=== PATIENT | female | born 1960 | race Caucasian/White ===

== ENCOUNTER 2021-05-23 12:53 | Inpatient (IN) | payer BC, MEDICAID, SELFPAY ==
[2021-05-23] VITALS (14 sets, daily range): BP systolic 130–170; BP diastolic 46–98; PULSE 72–88; RESP 16–20; TEMP 36–36.6; O2SAT 94–100
--- NOTE | ~2021-05-23 | XR_ITS ---
EXAMINATION: XR chest 1V DATE: 05/23/2021 17:46 INDICATION: Transient alteration of awareness. TECHNIQUE: A single frontal view of the chest was obtained. COMPARISON: None. FINDINGS: There is mild elevation of right hemidiaphragm. No pneumonia, pleural effusion, or pneumoth orax. The heart size is normal. There is a left subclavian port with tip at superior cavoatrial junct ion. A left internal jugular central venous catheter is seen with tip at superior cavoatrial junction . There is plate and screw fixation of left humerus. IMPRESSION: 1. No acute cardiopulmonary disease. Reviewed, dictated and finalized at location A.
--- NOTE | ~2021-05-23 | CT_ITS ---
EXAMINATION: CT brain wo con DATE: 05/23/2021 17:36 INDICATION: Altered mental state TECHNIQUE: Computed tomography (CT) of the head was performed without intravenous contrast. The mA wa s adjusted according to patient size. Iterative reconstruction technique was employed. Exam dose: 60 5.33 mGy-cm total exam DLP. COMPARISON: None FINDINGS: Bilateral vertebral artery and carotid siphon internal carotid artery calcifications. There is nonspecific diminished attenuation of the cerebral white matter, likely due to chronic small vessel ischemic changes. There is central and cortical cerebral atrophy. No intracranial mass lesion or hemorrhage or cerebrovascular accident is detected. There is no midlin e shift or mass effect effect. No subdural or epidural hematoma. Abnormal shape and density of the right orbital globe; postoperative change of the right orbit. The paranasal sinuses and mastoid air cells are normally developed and aerated. No fracture or bone destruction of the cranial vault. IMPRESSION: Cerebral atherosclerosis and chronic small vessel ischemic changes of cerebral white mat ter Central and cortical cerebral atrophy No acute intracranial finding Abnormal right orbital globe Reviewed, dictated and finalized at Location [facility]. Reviewed, dictated and finalized at location A. IMPRESSION: Cerebral atherosclerosis and chronic small vessel ischemic changes of cerebral white matter Central and cortical cerebral atrophy No acute intracranial finding Abnormal right orbital globe
--- NOTE | 2021-05-23 12:55 | ECG_ITS ---
Measurements Intervals [place] Rate: 73 P: 74 NM: 169 QRS: -51 QRSD: 116 T: 76 QT: 414 QTc: 457 Interpretive Statements SINUS RHYTHM LEFT ANTERIOR FASCICULAR BLOCK [QRS AXIS <= -45, QR IN I, RS IN II] NONSPECIFIC T-WAVE ABNORMALITY BASELINE ARTIFACT ABNORMAL ECG NO PREVIOUS ECG AVAILABLE FOR COMPARISON Electronically Signed On 05-23-2021 15:48:46 CDT by Andre Hernandez M.D.
--- NOTE | 2021-05-23 13:20 | PC.NURSE ---
attempted to access port, unsuccessful. Pt states it hasn't been used in a long time .
--- NOTE | 2021-05-23 13:51 | PC.NURSE ---
Evette RIVERA at bedside attempting US IV.
[2021-05-23 14:13] LABS: Basophils Percent Auto 0.3 % (0.2-1.2); Eosinophils Absolute Auto 0.1 K/mm3 (0-0.3); Eosinophils Percent Auto 0.7 % (0-4.4); Hematocrit 30.3 % (37.0-47.0); Hemoglobin 9.5 g/dL (12.0-15.0); Immature Granulocyte Absolute 0.06 K/mm3 (0.00-0.031); Immature Granulocyte Percent A 0.6 % (0-0.5); Lymphocytes Absolute Auto 0.63 K/mm3 (0.9-3.2); Mean Corpuscular HGB Conc 31.4 g/dl (32-36); Mean Corpuscular Hemoglobin 30.6 pg (26-34); Mean Corpuscular Volume 97.7 fl (80-100); Mean Platelet Volume 9.6 fl (7.4-10.4); Monocytes Absolute Auto 0.6 K/mm3 (0.1-0.6); Monocytes Percent Auto 6.1 % (2.6-8.5); Neutrophils Percent Auto 86.3 % (45.5-73.1); Platelet Count Result 212 k/mm3 (150-375); Red Cell Distribution Width 13.7 % (11.5-14.5); White Blood Count 10.5 K/mm3 (4.5-10.0)
[2021-05-23 14:22] LABS: INR 1.3; Prothrombin Time 15.4 Seconds (11.1-14.7)
[2021-05-23 14:23] LABS: Partial Thromboplastin Time 44.5 SECONDS (22.3-36.8)
--- NOTE | 2021-05-23 14:23 | PC.NURSE ---
Labs drawn, IV was established by EMS. Yen Counts at bedside to establish second IV access.
[2021-05-23 14:25] LABS: Alanine Aminotransferase 10 U/L (4-35); Albumin Level 3.9 g/dL (3.5-5.1); Alkaline Phosphatase 142 U/L (38-126); Anion Gap 14 mmol/L (8-16); Aspartate Amino Transferase 18 U/L (14-36); Bilirubin,Total 0.6 mg/dL (0.2-1.3); Blood Urea Nitrogen 59 mg/dL (7-17); Calcium 8.5 mg/dL (8.4-10.2); Carbon Dioxide 22 mmol/L (22-30); Chloride 98 mmol/L (98-107); Estimated CRCL calculation 11 ml/min; Estimated Glomerular Filt Rate 6; Glucose 353 mg/dL (65-110); Potassium 5.6 mmol/L (3.4-5.0); Sodium 134 mmol/L (137-145)
[2021-05-23 14:39] LABS: Add Urine Microscopic? YES; Appearance Urine Clear (Clear); Bacteria Urine Trace /hpf; Bilirubin Urine Negative (Negative); Blood Urine 1+ (Negative); Color Urine Yellow (Yellow); Glucose Urine UA 3+ mg/dL (Negative); Ketones Urine Trace mg/dL (Negative); Leukocyte Esterase Ur Trace LEU/UL (Negative); Nitrate Urine Negative (Negative); Protein Urine 3+ mg/dL (Negative); Specific Grav Ur 1.013 (1.001-1.035); Squamous Epithelial Cell Urine Rare /hpf (Few); Urobilinogen Urine Negative mg/dL (<2.0); WBC Urine 31-50 /hpf
--- NOTE | 2021-05-23 14:48 | PC.NURSE ---
Pt states she is a m,w,f dialysis pt and missed yesterday d/t not feeling well. Pt noted to have wounds to right lower extremity and open sore to left labia. States these are chronic in nature and she sees Dr. Oliva at [facility]. second iv access was established by vascular salesperson [employer].
--- NOTE | 2021-05-23 16:40 | ED.GENADULT ---
HPI - General Adult General Chief complaint: Altered Mental Status Stated complaint: mult cc Time Seen by Provider: 05/23/21 12:59 Source: patient Mode of arrival: EMS Limitations: no limitations History of Present Illness HPI narrative: 60-year-old with a history of hypertension, diabetes on hemodialysis here with complaints of mild weakness since this morning. As per the caregiver patient did seem to be more confused since this morning. Patient denies any fever or chills. No history of nausea or vomiting. Onset (ago): day(s) (1) Associated symptoms: denies other symptoms Related Data Home Medications Medication Instructions Recorded Confirmed amiodarone 200 mg PO DAILY 05/23/21 05/23/21 apixaban [Eliquis] 2.5 mg PO BID 05/23/21 05/23/21 baclofen 10 mg PO DAILY 05/23/21 05/23/21 gabapentin 300 mg PO TID 05/23/21 05/23/21 insulin glargine [Lantus Solostar 30 unit SUBCUT TID 05/23/21 05/23/21 U-100 Insulin] oxycodone-acetaminophen 7.5 - 325 tablet PO TID PRN 05/23/21 05/23/21 Allergies Allergy/AdvReac Type Severity Reaction Status Date / Time vancomycin Allergy Hives Verified 05/23/21 14:54 Review of Systems Review of Systems: All systems reviewed & are unremarkable except as noted in HPI and below Constitutional: Constitutional: Reports no additional constitutional complaints Eyes: Eyes: Reports no additional eye complaints Exam Narrative: GENERAL: Well-appearing, well-nourished, confused . HEAD: Normocephalic, atraumatic. EYES: PERRLA and EOMI. NECK: Supple. CHEST: Clear to auscultation. No respiratory distress. has dialysis cath on the left side of the chest HEART: Regular rate and rhythm. No murmur heard. Normal peripheral pulses. ABDOMEN: Soft, nontender, nondistended, normal active bowel sounds. EXTREMITIES: Normal range of motion. has venous stasis , serous drainage from the leg , left BKA SKIN: Warm, dry, no rash. NEURO: No focal deficits. Alert . PSYCH: Normal mood and affect. Course Course Emergency Course: Patient is a poor historian however labs indicate hyperkalemia. She has missed her dialysis today. I have given her 1 g of calcium gluconate. Discussed with will dialyze the patient tomorrow. Vital Signs Vital signs: Vital Signs Temperature 36.6 C 05/23/21 12:56 Pulse Rate 75 05/23/21 12:56 Respiratory Rate 18 05/23/21 12:56 Blood Pressure 169/98 H 05/23/21 12:56 Pulse Oximetry 100 05/23/21 12:56 Temperature 36.6 C 05/23/21 12:56 Pulse Rate 73 05/23/21 16:59 Respiratory Rate 18 05/23/21 16:59 Blood Pressure 165/74 H 05/23/21 16:59 Pulse Oximetry 98 05/23/21 16:59 Medical Decision Making Differential Diagnosis Differential Diagnosis: Sepsis, pneumonia, UTI Vital Signs Vital Signs: Vital Signs Temperature 36.6 C 05/23/21 12:56 Pulse Rate 75 05/23/21 12:56 Respiratory Rate 18 05/23/21 12:56 Blood Pressure 169/98 H 05/23/21 12:56 Pulse Oximetry 100 05/23/21 12:56 Temperature 36.6 C 05/23/21 12:56 Pulse Rate 73 05/23/21 16:59 Respiratory Rate 18 05/23/21 16:59 Blood Pressure 165/74 H 05/23/21 16:59 Pulse Oximetry 98 05/23/21 16:59 Lab Data Result diagrams: 05/23/21 14:05 05/23/21 14:05 Labs: Lab Results 05/23/21 05/23/21 05/23/21 Range/Units 14:05 14:05 14:05 WBC 10.5 H (4.5-10.0) K/mm3 RBC 3.10 L (4.2-5.4) M/mm3 Hgb 9.5 L (12.0-15.0) g/dL Hct 30.3 L (37.0-47.0) % MCV 97.7 (80-100) fl MCH 30.6 (26-34) pg MCHC 31.4 L (32-36) g/dl RDW 13.7 (11.5-14.5) % Plt Count 212 (150-375) k/mm3 MPV 9.6 (7.4-10.4) fl Immature Gran % (Auto) 0.6 H (0-0.5) % Neut % (Auto) 86.3 H (45.5-73.1) % Lymph % (Auto) 6.0 L (18.3-44.2) % Payne % (Auto) 6.1 (2.6-8.5) % Eos % (Auto) 0.7 (0-4.4) % Baso % (Auto) 0.3 (0.2-1.2) % Lymph # (Auto) 0.63 L (0.9-3.2) K/mm3 Payne # (Auto) 0.6 (0.1-0.6)
[2021-05-23] MEDS: CALCIUM GLUC 1,000 MG/NS 50 ML 1,000 MG/50 ML BAG 100 MG IVPB (17:26)
--- NOTE | 2021-05-23 18:07 | PM.IMHP ---
H&P: HPI History of Present Illness Date/Time: Patient was placed observation status for expected length of stay less than 23 hours for management, will plan to re-evaluate tomorrow for improvement. 05/23/21 18:07 Chief Complaint: Altered mental status Narrative: Ms. Ladd is a 60-year-old female who was unable to give me any type of history at this time. Per emergency room records patient was brought in with altered mental status after her caregiver had seen her I notice that she was more confused. Per emergency room records patient has a known history of diabetes mellitus, end-stage renal disease on hemodialysis on Thursday, , and Thursday, and hypertension. When asked patient if she is having any pain she denies any pain. Patient states that she knows she is at the hospital but she does not know what hospital. Patient is unsure of the year, month, or date. Patient states she does live by herself. Patient is noted to have a left bonnu-egy-cptd amputation, but she is unable to move why this occurred. Upon evaluation in emergency room patient was noted to be extremely confused oriented to self only. Patient lives by herself was unable to return home. Patient did miss hemodialysis today and her potassium was 5.6. Patient does have a dressing to her right lower extremity, but she states she is not sure who takes care of that. Review of Systems Review of Systems: I am unable to obtain full review of systems secondary to patient's confusion. [facility] Past Medical History Medical History (Updated 05/23/21 @ 18:18 by Suzette Ponce APRN) Diabetes mellitus End-stage renal disease (ESRD) Hypertension Stasis edema Surgical History Surgical History (Updated 05/23/21 @ 18:15 by Suzette Ponce APRN) History of left below knee amputation Meds Home Medications and Allergies Home Medications Medication Instructions Recorded Confirmed Type amiodarone 200 mg PO DAILY 05/23/21 05/23/21 History apixaban [Eliquis] 2.5 mg PO BID 05/23/21 05/23/21 History baclofen 10 mg PO DAILY 05/23/21 05/23/21 History gabapentin 300 mg PO TID 05/23/21 05/23/21 History insulin glargine [Lantus Solostar 30 unit SUBCUT TID 05/23/21 05/23/21 History U-100 Insulin] oxycodone-acetaminophen 7.5 - 325 tablet PO TID PRN 05/23/21 05/23/21 History Allergies Allergy/AdvReac Type Severity Reaction Status Date / Time vancomycin Allergy Hives Verified 05/23/21 14:54 Vital Signs Vital Signs - 24 hr 05/23/21 12:56 05/23/21 13:30 05/23/21 13:51 Temperature 36.6 C Pulse Rate 75 88 Respiratory Rate 18 18 16 Blood Pressure 169/98 H 158/88 H Pulse Oximetry 100 97 05/23/21 14:50 05/23/21 15:23 05/23/21 15:47 Temperature Pulse Rate 78 74 72 Respiratory Rate 18 18 18 Blood Pressure 163/70 H 157/93 H 170/75 H Pulse Oximetry 95 94 98 05/23/21 16:59 Temperature Pulse Rate 73 Respiratory Rate 18 Blood Pressure 165/74 H Pulse Oximetry 98 Exam Narrative: Constitutional: Patient is well-nourished in no acute distress. Patient is alert and oriented to self only HEENT: Moist mucous membranes. No scleral icterus. No lymphadenopathy. Neck: No carotid bruits noted no JVD noted Lungs: Lung sounds are clear to auscultation bilaterally. No accessory muscle use. No rhonchi, rales, or wheezes noted. Cardiovascular: Apical pulse is regular rate and rhythm. S1-S2 noted, no S3 or S4 noted. No gallops, murmurs, or rubs noted. Chest: Dialysis catheter noted to left chest wall. Abdomen: Soft, round, and nontender. No palpable masses. Extremities: Patient does have a prostatic to her left BKA Skin: Patient has a dressing to her right lower extremity that is falling off and has large amount of serosanguineous drainage noted. Patient also has multiple painful sores to her vaginal and inner thigh area. Psychiatric: Cooperative, appropriate mood, and affect H&P: Results Labs Labs: Short CBC 05/23/21 Range
[2021-05-23] MEDS: SODIUM ZIRCONIUM CYCLOSILICATE 10 GM POWD.PACK PO (18:25)
--- NOTE | 2021-05-23 18:28 | PC.NURSE ---
Wound to RLE cleansed with wound cleanser. Foul odor and urine scent noted. Gauze, ABD pad, and maikol wrap applied. Son updated states he does not believe she is taking good care of herself at home but patient refuses a detention.
[2021-05-23 19:16] LABS: Glucose Point of Care 329 mg/dl (65-105)
[2021-05-23] MEDS: HEPARIN SODIUM 5,000 UNITS/ML VIAL 5000 UNITS SUB-Q (23:09)
[2021-05-23 23:19] LABS: Glucose Point of Care 312 mg/dl (65-105)
[2021-05-24] VITALS (28 sets, daily range): BP systolic 122–171; BP diastolic 48–98; PULSE 71–99; RESP 14–18; TEMP 35–36.7; O2SAT 97–100; BMI 36.8
[2021-05-24 05:19] LABS: Basophils Percent Auto 0.3 % (0.2-1.2); Eosinophils Absolute Auto 0.1 K/mm3 (0-0.3); Eosinophils Percent Auto 0.8 % (0-4.4); Hematocrit 28.2 % (37.0-47.0); Hemoglobin 9.2 g/dL (12.0-15.0); Immature Granulocyte Absolute 0.05 K/mm3 (0.00-0.031); Immature Granulocyte Percent A 0.6 % (0-0.5); Lymphocytes Absolute Auto 0.91 K/mm3 (0.9-3.2); Lymphocytes Percent Auto 10.4 % (18.3-44.2); Mean Corpuscular HGB Conc 32.6 g/dl (32-36); Mean Corpuscular Hemoglobin 31.4 pg (26-34); Mean Corpuscular Volume 96.2 fl (80-100); Mean Platelet Volume 9.7 fl (7.4-10.4); Monocytes Absolute Auto 0.7 K/mm3 (0.1-0.6); Monocytes Percent Auto 7.4 % (2.6-8.5); Neutrophils Percent Auto 80.5 % (45.5-73.1); Platelet Count Result 221 k/mm3 (150-375); Red Blood Count 2.93 M/mm3 (4.2-5.4); Red Cell Distribution Width 13.3 % (11.5-14.5); White Blood Count 8.8 K/mm3 (4.5-10.0)
[2021-05-24 05:30] LABS: Anion Gap 14 mmol/L (8-16); Blood Urea Nitrogen 64 mg/dL (7-17); Calcium 8.4 mg/dL (8.4-10.2); Carbon Dioxide 22 mmol/L (22-30); Chloride 100 mmol/L (98-107); Estimated CRCL calculation 9 ml/min; Estimated Glomerular Filt Rate 6; Glucose 324 mg/dL (65-110); Potassium 4.9 mmol/L (3.4-5.0); Sodium 136 mmol/L (137-145)
[2021-05-24 06:25] LABS: Hepatitis B Surface Antigen Negative (Negative)
[2021-05-24 07:13] LABS: Hepatitis B Surface Anti Res Positive
[2021-05-24 07:31] LABS: Glucose Point of Care 287 mg/dl (65-105)
[2021-05-24] MEDS: INSULIN ASPART (*BKC) 100 UNITS/ML SUB-Q ×3 (07:55→16:16)
[2021-05-24] MEDS: HEPARIN SODIUM 5,000 UNITS/ML VIAL 5000 UNITS SUB-Q (08:01)
[2021-05-24 08:57] LABS: Hemoglobin A1C 10.4 % (<5.7)
--- NOTE | 2021-05-24 10:29 | PCPTNOTE ---
Attempted physical therapy evaluation, patient just left for dialysis. Per RN patient will be gone for 5 hours. Will continue to follow.
--- NOTE | 2021-05-24 12:47 | PM.CNNEP ---
Assessment and Plan Assessment and plan (1) End-stage renal disease (ESRD): Code(s): N18.6 - End stage renal disease Status: Chronic Assessment and Plan: HD today to maintain outpatient schedule of Thu/Thu/Thursday follow electrolytes, volume status, and clearance (2) Hyperkalemia: Code(s): E87.5 - Hyperkalemia Status: Acute Assessment and Plan: presumably secondary to missed dialysis treatment on Thursday (05/22/21) corrected with medical management and dialysis follow trend (3) Altered mental status: Code(s): R41.82 - Altered mental status, unspecified Status: Acute Assessment and Plan: etiology not clear if related to dialysis, should improve given dialysis treatment today possible infection -- right leg wounds/drainage noted; follow culture data follow mentation (4) Hypertension: Code(s): I10 - Essential (primary) hypertension Status: Chronic Assessment and Plan: resume home medications follow trend of hemodynamics (5) Anemia: Code(s): D64.9 - Anemia, unspecified Status: Chronic Assessment and Plan: due to ESRD Epogen with HD follow trend of H/H (6) Diabetes mellitus: Code(s): E11.9 - Type 2 diabetes mellitus without complications Status: Acute Assessment and Plan: follow accuchecks glycemic control Will continue to follow. History of Present Illness Reason for Consult Consult date: 05/24/21 Reason for consult: end stage renal disease Chief Complaint Chief complaint: Hyperkalemia History of Present Illness Narrative: The patient is 60-year-old female with extensive past medical history as outlined below who presented to [facility] Emergency room yesterday afternoon after her caregiver noted her to be quite confused. Most of the history that I have obtained is from review of the electronic medical record as well as discussion with the ER physician yesterday afternoon and is difficult to get a full and complete history from the patient due to her confusion. Workup and evaluation emergency room demonstrated the patient to be quite confused and is only oriented to herself. Apparently, she did reportedly missed her dialysis treatment on Thursday (05/22/2021) but did receive dialysis on Thursday. Aside from this change in her usual routine, no other reported history was available. Routine blood test demonstrated labs consistent with her known history of end-stage renal disease but she was hyperkalemia with a potassium of 5.8. She was given medical management for this issue and subsequent admitted to the hospital for further evaluation and therapy Since her admission, her mentation does not appear to be doing much better but her potassium was by a.m. labs. She otherwise does not appear to be in acute distress but rather her confusion seems to be the most prominent issue/problem at this time Renal consultation was requested due to her end-stage renal disease. The patient is somewhat familiar to me as I take care of her outpatient dialysis needs. She normally dialyzes on a Thursday, Thursday, Thursday dialysis schedule under my care at [facility] in [place]. As already mentioned, she received dialysis on Thursday or earlier this week but did not come treatment on Thursday although I am unclear as to why she did not show up. She does have issues and problems with transportation sometimes and perhaps this is the reason why she did not go to dialysis on Thursday. Any case, at her baseline, the patient is usually alert and oriented x4 as actually quite talkative at least when I see her at her outpatient dialysis unit. Her only issue with dialysis is the fact that she is unable to get reliable access in terms of a fistula or graft as she has quite severe vascular disease and there apparently is no other place/location to place such an access given her disease burden.
--- NOTE | 2021-05-24 14:19 | PCOTNOTE ---
Attempted to see pt. for occupational therapy evaluation. Pt. in room and just returned from dialysis. Pt. agreeable to evaluation, but too fatigued and unable to stay awake.
--- NOTE | 2021-05-24 15:29 | P.PNIM_ITS ---
Progress Note: A&P Assessment and Plan (1) End-stage renal disease (ESRD): Code(s): N18.6 - End stage renal disease Status: Chronic Assessment and Plan: She is maintained on hemodialysis Thursday, Thursday, Thursday * Appreciate nephrology consultation from dialysis management * Patient missed dialysis on Monday 05/22 * Monitor volume status and electrolytes * Received dialysis today (2) Acute hyperkalemia: Code(s): E87.5 - Hyperkalemia Status: Acute Assessment and Plan: Potassium was 5.6 on presentation * Secondary to missed dialysis * Received 10 g Lokelma per Nephrology recommendations * Repeat potassium today is stable at 4.9 * Continue to monitor labs closely (3) Weakness: Code(s): R53.1 - Weakness Status: Acute Assessment and Plan: Unclear duration as patient unable to provide clear history * Appreciate PT/OT evaluation * Care coordination following, planning for SNF placement per family request. Patient previously living alone and having difficulty with mobility. Appreciate critical care nurse evaluation (4) Altered mental status: Code(s): R41.82 - Altered mental status, unspecified Status: Acute Assessment and Plan: Patient presented with increased confusion, unable to provide any history * Possibly secondary to missed dialysis although I am unsure of the patients baseline * She was A&Ox0 today and did not provide verbal responses (5) Diabetes mellitus: Code(s): E11.9 - Type 2 diabetes mellitus without complications Status: Acute Assessment and Plan: Poorly controlled. A1c is 10.4 * Continue with Accu-Cheks, sliding scale insulin, hypoglycemic protocol * 30 units Lantus q.h.s. * 5 units NovoLog scheduled with meals (6) Stasis edema: Qualifiers: Laterality: right Qualified Code(s): I87.301 - Chronic venous hypertension (idiopathic) without complications of right lower extremity Code(s): I87.309 - Chronic venous hypertension (idiopathic) without complications of unspecified lower extremity Status: Acute Assessment and Plan: Patient with history of chronic venous stasis * Appears she is established with vascular surgeon, Dr. Oliva * She has venous stasis ulcer that has been evaluated by wound care. No signs or symptoms of infection. Orders for cover dressing to control weeping placed (7) Hypertension: Code(s): I10 - Essential (primary) hypertension Status: Chronic Assessment and Plan: Blood pressures reviewed and are generally stable but slightly elevated in the 150-160s systolic. * She does not appear to be in any antihypertensive medications * Monitor blood pressure trends (8) Atrial fibrillation: Code(s): I48.91 - Unspecified atrial fibrillation Status: Acute Assessment and Plan: Patient was suspected history atrial fibrillation this is documented in the EMR * Continue amiodarone and Eliquis * Rate is controlled (9) Snoring: Code(s): R06.83 - Snoring Status: Acute Assessment and Plan: Patient's son that she snores frequently and wakes up more confused * Will proceed with apnea link tonight Subjective Date/time seen: 05/24/21 15:29 Interval history: Date of service: 05/24/2021 Cristiana Vasquez is a 60-year-old female with a history of ESRD on hemodialysis Thursday, Thursday, Thursday, type 2 diabetes mellitus, hypertension, atrial fibrillation on chronic
--- NOTE | 2021-05-24 15:29 | PM.IMPN ---
Progress Note: A&P Assessment and Plan (1) End-stage renal disease (ESRD): Code(s): N18.6 - End stage renal disease Status: Chronic Assessment and Plan: She is maintained on hemodialysis Thursday, Thursday, Thursday Appreciate nephrology consultation from dialysis management Patient missed dialysis on Monday 05/22 Monitor volume status and electrolytes Received dialysis today (2) Acute hyperkalemia: Code(s): E87.5 - Hyperkalemia Status: Acute Assessment and Plan: Potassium was 5.6 on presentation Secondary to missed dialysis Received 10 g Lokelma per Nephrology recommendations Repeat potassium today is stable at 4.9 Continue to monitor labs closely (3) Weakness: Code(s): R53.1 - Weakness Status: Acute Assessment and Plan: Unclear duration as patient unable to provide clear history Appreciate PT/OT evaluation Care coordination following, planning for SNF placement per family request. Patient previously living alone and having difficulty with mobility. Appreciate healthcare administrative assistant evaluation (4) Altered mental status: Code(s): R41.82 - Altered mental status, unspecified Status: Acute Assessment and Plan: Patient presented with increased confusion, unable to provide any history Possibly secondary to missed dialysis although I am unsure of the patients baseline She was A&Ox0 today and did not provide verbal responses (5) Diabetes mellitus: Code(s): E11.9 - Type 2 diabetes mellitus without complications Status: Acute Assessment and Plan: Poorly controlled. A1c is 10.4 Continue with Accu-Cheks, sliding scale insulin, hypoglycemic protocol 30 units Lantus q.h.s. 5 units NovoLog scheduled with meals (6) Stasis edema: Qualifiers: Laterality: right Qualified Code(s): I87.301 - Chronic venous hypertension (idiopathic) without complications of right lower extremity Code(s): I87.309 - Chronic venous hypertension (idiopathic) without complications of unspecified lower extremity Status: Acute Assessment and Plan: Patient with history of chronic venous stasis Appears she is established with vascular surgeon, Dr. Oliva She has venous stasis ulcer that has been evaluated by wound care. No signs or symptoms of infection. Orders for cover dressing to control weeping placed (7) Hypertension: Code(s): I10 - Essential (primary) hypertension Status: Chronic Assessment and Plan: Blood pressures reviewed and are generally stable but slightly elevated in the 150-160s systolic. She does not appear to be in any antihypertensive medications Monitor blood pressure trends (8) Atrial fibrillation: Code(s): I48.91 - Unspecified atrial fibrillation Status: Acute Assessment and Plan: Patient was suspected history atrial fibrillation this is documented in the EMR Continue amiodarone and Eliquis Rate is controlled (9) Snoring: Code(s): R06.83 - Snoring Status: Acute Assessment and Plan: Patient's son that she snores frequently and wakes up more confused Will proceed with apnea link tonight Subjective Date/time seen: 05/24/21 15:29 Interval history: Date of service: 05/24/2021 Cristiana Vasquez is a 60-year-old female with a history of ESRD on hemodialysis Thursday, Thursday, Thursday, type 2 diabetes mellitus, hypertension, atrial fibrillation on chronic anticoagulation, and chronic venous stasis who is seen in follow-up for altered mental status. The patient a poor historian is unable to provide any history. She does not provide any verbal responses during my encounter. Review of Systems Review of Systems: All systems reviewed & are unremarkable except as noted in HPI and below Exam Narrative: General: Chronically ill-appearing 60 year-old female, sitting up in bed, appears comfortable, NARD Neuro: Asleep bu
[2021-05-24] MEDS: TOLNAFTATE 1% POWDER 45 GM BTL 1 APPLIC TOPICAL ×2 (16:15→21:21)
[2021-05-24 16:17] LABS: Glucose Point of Care 268 mg/dl (65-105)
[2021-05-24] MEDS: GABAPENTIN 300 MG CAPSULE PO (16:17)
[2021-05-24] MEDS: APIXABAN 2.5 MG TABLET PO (16:17)
[2021-05-24] MEDS: INSULIN GLARGINE (*BKC) 100 UNITS/ML 10 UNITS SUB-Q (21:20)
[2021-05-24 22:05] LABS: Glucose Point of Care 247 mg/dl (65-105)
[2021-05-25] VITALS (12 sets, daily range): BP systolic 122–136; BP diastolic 59–68; PULSE 71–87; RESP 16–18; TEMP 36.1–36.6; O2SAT 96–100
[2021-05-25 06:52] LABS: Hematocrit 27.2 % (37.0-47.0); Hemoglobin 8.7 g/dL (12.0-15.0); Mean Corpuscular Hemoglobin 31.3 pg (26-34); Mean Corpuscular Volume 97.8 fl (80-100); Mean Platelet Volume 9.4 fl (7.4-10.4); Platelet Count Result 205 k/mm3 (150-375); Red Blood Count 2.78 M/mm3 (4.2-5.4); Red Cell Distribution Width 13.2 % (11.5-14.5); White Blood Count 9.7 K/mm3 (4.5-10.0)
[2021-05-25 07:13] LABS: Anion Gap 12 mmol/L (8-16); Blood Urea Nitrogen 35 mg/dL (7-17); Calcium 8.1 mg/dL (8.4-10.2); Carbon Dioxide 23 mmol/L (22-30); Chloride 100 mmol/L (98-107); Estimated CRCL calculation 15 ml/min; Estimated Glomerular Filt Rate 11; Glucose 241 mg/dL (65-110); Potassium 3.5 mmol/L (3.4-5.0); Sodium 135 mmol/L (137-145)
[2021-05-25 07:35] LABS: Glucose Point of Care 216 mg/dl (65-105)
[2021-05-25] MEDS: INSULIN ASPART (*BKC) 100 UNITS/ML SUB-Q ×6 (08:34→16:47)
[2021-05-25] MEDS: GABAPENTIN 300 MG CAPSULE PO ×3 (08:36→16:46)
[2021-05-25] MEDS: APIXABAN 2.5 MG TABLET PO ×2 (08:36→16:46)
[2021-05-25] MEDS: AMIODARONE HCL 200 MG TABLET PO (08:37)
[2021-05-25] MEDS: TOLNAFTATE 1% POWDER 45 GM BTL 1 APPLIC TOPICAL ×2 (08:41→20:32)
--- NOTE | 2021-05-25 09:33 | PCPTNOTE ---
Patient refused treatment this session due to working with OT this morning. Declined attempting transfers, a stand from the bed, and all other mobility. Will attempt eval at a later time.
--- NOTE | 2021-05-25 09:46 | PM.IMPN ---
Progress Note: A&P Assessment and Plan (1) End-stage renal disease (ESRD): Code(s): N18.6 - End stage renal disease Status: Chronic Assessment and Plan: She is maintained on hemodialysis Thursday, Thursday, Thursday Appreciate nephrology consultation from dialysis management Patient missed dialysis on Monday 05/22 Monitor volume status and electrolytes Received dialysis today 05/25/2021 interval history: Patient is a 60-year-old female today patient is more alert and oriented, with past medical history end-stage renal disease on hemodialysis patient states patient states to 3 days prior to coming to emergency depart see had developed hip pain ventral local Urgent Care and patient was given muscle relaxant see took the medication and went to sleep, the medication made her quite lethargic and slept for 2 days and missed her dialysis presented emergency depart was found to have elevated potassium, patient was seen by Nephrology and had a dialysis, her potassium is trending down, patient remains clinically stable is feeling much better compared to when she arrived, will continue to monitor have PT OT evaluate the patient patient will have her scheduled dialysis and further recommendation to follow. (2) Acute hyperkalemia: Code(s): E87.5 - Hyperkalemia Status: Acute Assessment and Plan: Potassium was 5.6 on presentation Secondary to missed dialysis Received 10 g Lokelma per Nephrology recommendations Repeat potassium today is stable at 4.9 Continue to monitor labs closely (3) Weakness: Code(s): R53.1 - Weakness Status: Acute Assessment and Plan: Unclear duration as patient unable to provide clear history Appreciate PT/OT evaluation Care coordination following, planning for SNF placement per family request. Patient previously living alone and having difficulty with mobility. Appreciate care team assistant evaluation (4) Altered mental status: Code(s): R41.82 - Altered mental status, unspecified Status: Acute Assessment and Plan: Patient presented with increased confusion, unable to provide any history Possibly secondary to missed dialysis although I am unsure of the patients baseline She was A&Ox0 today and did not provide verbal responses (5) Diabetes mellitus: Code(s): E11.9 - Type 2 diabetes mellitus without complications Status: Acute Assessment and Plan: Poorly controlled. A1c is 10.4 Continue with Accu-Cheks, sliding scale insulin, hypoglycemic protocol 30 units Lantus q.h.s. 5 units NovoLog scheduled with meals (6) Stasis edema: Qualifiers: Laterality: right Qualified Code(s): I87.301 - Chronic venous hypertension (idiopathic) without complications of right lower extremity Code(s): I87.309 - Chronic venous hypertension (idiopathic) without complications of unspecified lower extremity Status: Acute Assessment and Plan: Patient with history of chronic venous stasis Appears she is established with vascular surgeon, Dr. Oliva She has venous stasis ulcer that has been evaluated by wound care. No signs or symptoms of infection. Orders for cover dressing to control weeping placed (7) Hypertension: Code(s): I10 - Essential (primary) hypertension Status: Chronic Assessment and Plan: Blood pressures reviewed and are generally stable but slightly elevated in the 150-160s systolic. She does not appear to be in any antihypertensive medications Monitor blood pressure trends (8) Atrial fibrillation: Code(s): I48.91 - Unspecified atrial fibrillation Status: Acute Assessment and Plan: Patient was suspected history atrial fibrillation this is documented in the EMR Continue amiodarone and Eliquis Rate is controlled (9) Snoring: Code(s): R06.83 - Snoring Status: Acute Assessment and Plan: Patient's son that she snor
[2021-05-25] MEDS: EUCERIN CREAM 120 GM JAR 1 APPLIC TOPICAL ×2 (10:17→20:32)
[2021-05-25 11:26] LABS: Glucose Point of Care 221 mg/dl (65-105)
--- NOTE | 2021-05-25 12:21 | PM.PNNEP ---
Progress Note: A&P Assessment and Plan (1) End-stage renal disease (ESRD): Code(s): N18.6 - End stage renal disease Status: Chronic Assessment and Plan: HD yesterday to maintain outpatient schedule of Thu/Thu/Thursday follow electrolytes, volume status, and clearance (2) Hyperkalemia: Code(s): E87.5 - Hyperkalemia Status: Acute Assessment and Plan: presumably secondary to missed dialysis treatment on Thursday (05/22/21) corrected with medical management and dialysis follow trend (3) Altered mental status: Code(s): R41.82 - Altered mental status, unspecified Status: Acute Assessment and Plan: etiology not clear but susect due to medication (muscle relaxers) possible infection -- right leg wounds/drainage noted; follow culture data follow mentation (4) Hypertension: Code(s): I10 - Essential (primary) hypertension Status: Chronic Assessment and Plan: resume home medications follow trend of hemodynamics (5) Anemia: Code(s): D64.9 - Anemia, unspecified Status: Chronic Assessment and Plan: due to ESRD Epogen with HD follow trend of H/H (6) Diabetes mellitus: Code(s): E11.9 - Type 2 diabetes mellitus without complications Status: Acute Assessment and Plan: follow accuchecks on Lantus and SSI Will continue to follow. Subjective Date/time seen: 05/25/21 12:21 Mentation appears to be doing much better -- she was able to related that prior to her presentation to the [facility], she went to urgent care for evaluation of hip pain -- she was prescribed some muscle relaxer and upon taking these medications, she felt quite fatigued as well as lethargic; no issues/events overnight; tolerated dialysis yesterday without any problems. Exam Narrative: General: WD/WN female in NAD Heart: normal S1 and S2; no rub Lungs: clear to auscultation Abdomen: soft, nontender, nondistended, positive bowel sounds Extremities: no cyanosis or clubbing; no edema Skin: warm and dry Objective Data Vital Signs Vital Signs: Vital Signs Temp Pulse Resp BP Pulse Ox 05/25/21 12:01 81 05/25/21 11:02 96 05/25/21 08:41 18 96 05/25/21 08:37 80 05/25/21 08:03 83 05/25/21 05:06 36.1 C L 81 18 136/68 100 05/25/21 04:00 85 05/25/21 00:00 87 05/24/21 20:00 92 05/24/21 19:57 36.0 C L 95 18 144/70 H 100 Intake/Output Intake/Output: Intake & Output 05/22/21 05/23/21 05/24/21 05/25/21 23:59 23:59 23:59 23:59 Intake Total 50 60 150 Output Total 2000 Balance 50 -1940 150 Meds/Results Medications: Active Medications Generic Name Dose Route Start Last Admin Trade Name Freq PRN Reason Stop Dose Admin Acetaminophen 650 mg 05/23/21 18:15 Acetaminophen 325 Mg Tablet PO Q4H PRN Mild Pain (1-3) or Fever Amiodarone HCl 200 mg 05/24/21 09:00 05/25/21 08:37 Amiodarone Hcl 200 Mg Tablet PO 200 mg DAILY DEBRA Administration Apixaban 2.5 mg 05/24/21 09:00 05/25/21 08:36 Apixaban 2.5 Mg Tablet PO 2.5 mg BID DEBRA Administration Dextrose 12.5 gm 05/23/21 18:19 Dextrose 50% 25 Gm/50 Ml Syringe IV PUSH PRN PRN Hypoglycemia Protocol Gabapentin 300 mg 05/24/21 09:00 05/25/21 12:33 Gabapentin 300 Mg Capsule PO 300 mg TID DEBRA Administration Glucagon 1 mg 05/23/21 18:19 Glucagon For Inj 1 Mg Vial IM PRN PRN Hypoglycemia Protocol Glucose 15 gm 05/23/21 18:19 Glucose Oral Gel 15 Gm Of Glucse In 37.5 Gm Tube PO PRN PRN Hypoglycemia Protocol Dextrose 1,000 mls @ 100 mls/hr 05/23/21 18:19 Dextrose 5% 1,000 Ml IVPB PRN PRN Hypoglycemia Protocol Albumin Human 50 mls @ 999 mls/hr 05/24/21 03:27 Albutein IVPB 06/23/21 03:26 Q10M PRN HYPOTENSION Insulin Aspart 5 units 05/24/21 12:00 05/25/21 11
[2021-05-25] MEDS: traMADol HCL (*CRX) 25 MG TABLET PO ×2 (15:49→21:51)
[2021-05-25 16:31] LABS: Glucose Point of Care 260 mg/dl (65-105)
[2021-05-25] MEDS: INSULIN GLARGINE (*BKC) 100 UNITS/ML 30 UNITS SUB-Q (20:28)
[2021-05-25 20:50] LABS: Glucose Point of Care 138 mg/dl (65-105)
[2021-05-26] VITALS (13 sets, daily range): BP systolic 121–127; BP diastolic 49–60; PULSE 71–80; RESP 16–21; TEMP 36.2–36.3; O2SAT 96–100
[2021-05-26] MEDS: traMADol HCL (*CRX) 25 MG TABLET PO ×4 (03:52→23:09)
[2021-05-26 05:05] LABS: Hemoglobin 8.9 g/dL (12.0-15.0); Mean Corpuscular HGB Conc 31.8 g/dl (32-36); Mean Corpuscular Volume 97.6 fl (80-100); Mean Platelet Volume 9.4 fl (7.4-10.4); Platelet Count Result 210 k/mm3 (150-375); Red Blood Count 2.87 M/mm3 (4.2-5.4); Red Cell Distribution Width 13.1 % (11.5-14.5); White Blood Count 9.7 K/mm3 (4.5-10.0)
[2021-05-26 05:18] LABS: Albumin Level 3.5 g/dL (3.5-5.1); Anion Gap 9 mmol/L (8-16); Blood Urea Nitrogen 45 mg/dL (7-17); Calcium 8.4 mg/dL (8.4-10.2); Carbon Dioxide 24 mmol/L (22-30); Chloride 102 mmol/L (98-107); Estimated CRCL calculation 11 ml/min; Estimated Glomerular Filt Rate 8; Glucose 154 mg/dL (65-110); Phosphorus 4.9 mg/dL (2.5-4.5); Potassium 3.4 mmol/L (3.4-5.0); Sodium 135 mmol/L (137-145)
[2021-05-26 07:38] LABS: Glucose Point of Care 134 mg/dl (65-105)
[2021-05-26] MEDS: POTASSIUM CHLORIDE 20 MEQ TABLET PO (08:37)
[2021-05-26] MEDS: INSULIN ASPART (*BKC) 100 UNITS/ML SUB-Q ×4 (08:37→16:47)
[2021-05-26] MEDS: TOLNAFTATE 1% POWDER 45 GM BTL 1 APPLIC TOPICAL ×2 (08:40→20:38)
[2021-05-26] MEDS: EUCERIN CREAM 120 GM JAR 1 APPLIC TOPICAL ×2 (08:40→20:38)
[2021-05-26] MEDS: GABAPENTIN 300 MG CAPSULE PO ×3 (08:41→16:46)
[2021-05-26] MEDS: APIXABAN 2.5 MG TABLET PO ×2 (08:41→16:46)
[2021-05-26] MEDS: AMIODARONE HCL 200 MG TABLET PO (08:41)
[2021-05-26] MEDS: LIDOCAINE 5% PATCH 3 PATCH TRANSDERM (08:42)
--- NOTE | 2021-05-26 10:09 | PM.IMPN ---
Progress Note: A&P Assessment and Plan (1) End-stage renal disease (ESRD): Code(s): N18.6 - End stage renal disease Status: Chronic Assessment and Plan: She is maintained on hemodialysis Thursday, Thursday, Thursday Appreciate nephrology consultation from dialysis management Patient missed dialysis on Monday 05/22 Monitor volume status and electrolytes Received dialysis today 05/25/2021 interval history: Patient is a 60-year-old female today patient is more alert and oriented, with past medical history end-stage renal disease on hemodialysis patient states patient states to 3 days prior to coming to emergency depart see had developed hip pain ventral local Urgent Care and patient was given muscle relaxant see took the medication and went to sleep, the medication made her quite lethargic and slept for 2 days and missed her dialysis presented emergency depart was found to have elevated potassium, patient was seen by Nephrology and had a dialysis, her potassium is trending down, patient remains clinically stable is feeling much better compared to when she arrived, will continue to monitor have PT OT evaluate the patient patient will have her scheduled dialysis and further recommendation to follow. 05/26/2021 interval history: Patient is a 60-year-old female today patient is more alert and oriented,Today patient is sitting in the chair plan to work with physical therapy, patient states see would like to go for rehab for going home, will discuss with social Service and further recommendation to follow, with past medical history end-stage renal disease on hemodialysis MWF, patient states 3 days prior to coming to emergency depart she had developed hip pain went to local Urgent Care and patient was given muscle relaxant she took the medication and went to sleep, the medication made her quite lethargic and slept for 2 days and missed her dialysis presented emergency depart was found to have elevated potassium, patient was seen by Nephrology and had a dialysis, her potassium is trending down, patient remains clinically stable is feeling much better compared to when she arrived, will continue to monitor have PT OT evaluate the patient, patient will have her scheduled dialysis and further recommendation to follow. (2) Acute hyperkalemia: Code(s): E87.5 - Hyperkalemia Status: Acute Assessment and Plan: Potassium was 5.6 on presentation Secondary to missed dialysis Received 10 g Lokelma per Nephrology recommendations Repeat potassium today is stable at 4.9 Continue to monitor labs closely (3) Weakness: Code(s): R53.1 - Weakness Status: Acute Assessment and Plan: Unclear duration as patient unable to provide clear history Appreciate PT/OT evaluation Care coordination following, planning for SNF placement per family request. Patient previously living alone and having difficulty with mobility. Appreciate direct care provider evaluation (4) Altered mental status: Code(s): R41.82 - Altered mental status, unspecified Status: Acute Assessment and Plan: Patient presented with increased confusion, unable to provide any history Possibly secondary to missed dialysis although I am unsure of the patients baseline She was A&Ox0 today and did not provide verbal responses (5) Diabetes mellitus: Code(s): E11.9 - Type 2 diabetes mellitus without complications Status: Acute Assessment and Plan: Poorly controlled. A1c is 10.4 Continue with Accu-Cheks, sliding scale insulin, hypoglycemic protocol 30 units Lantus q.h.s. 5 units NovoLog scheduled with meals (6) Stasis edema: Qualifiers: Laterality: right Qualified Code(s): I87.301 - Chronic venous hypertension (idiopathic) without complications of right lower extremity Code(s): I87.309 - Chronic venous hypertension (idiopathic) without complications of unspecified lower extremity
[2021-05-26 11:46] LABS: Glucose Point of Care 219 mg/dl (65-105)
--- NOTE | 2021-05-26 12:19 | P.PNNP_ITS ---
Progress Note: A&P Assessment and Plan (1) End-stage renal disease (ESRD): Code(s): N18.6 - End stage renal disease Status: Chronic Assessment and Plan: * HD tomorrow to maintain outpatient schedule of Thu/Thu/Thursday * follow electrolytes, volume status, and clearance (2) Hyperkalemia: Code(s): E87.5 - Hyperkalemia Status: Acute Assessment and Plan: * resolved * presumably secondary to missed dialysis treatment on Thursday (05/22/21) * corrected with medical management and dialysis * follow trend (3) Altered mental status: Code(s): R41.82 - Altered mental status, unspecified Status: Acute Assessment and Plan: * improving if not back to baseline * etiology not clear but suspect due to medication (muscle relaxers) * follow mentation (improving with supportive therapy) (4) Hypertension: Code(s): I10 - Essential (primary) hypertension Status: Chronic Assessment and Plan: * continue home medications * follow trend of hemodynamics (5) Anemia: Code(s): D64.9 - Anemia, unspecified Status: Chronic Assessment and Plan: * due to ESRD * Epogen with HD * follow trend of H/H (6) Diabetes mellitus: Code(s): E11.9 - Type 2 diabetes mellitus without complications Status: Acute Assessment and Plan: * follow accuchecks * on Lantus and SSI Will continue to follow. Subjective Date/time seen: 05/26/21 12:19 Mentation continue to improve each day; working with PT/OT as tolerated; no apparent distress noted; overall, feeling significantly better; no issues/events overnight or earlier this morning. Exam Narrative: General: WD/WN female in NAD Heart: normal S1 and S2; no rub Lungs: clear to auscultation Abdomen: soft, nontender, nondistended, positive bowel sounds Extremities: no cyanosis or clubbing; no edema Skin: warm and intact Objective Data Vital Signs Vital Signs: Vital Signs Temp Pulse Resp BP Pulse Ox 05/26/21 12:01 80 05/26/21 11:40 36.3 C L 05/26/21 08:41 80 05/26/21 08:37 16 96 05/26/21 08:03 75 05/26/21 05:56 36.3 C L 75 16 127/59 L 96 05/26/21 04:00 79 05/26/21 03:48 97 05/26/21 00:00 75 05/25/21 20:53 36.6 C 73 16 122/64 99 05/25/21 20:00 71 05/25/21 16:03 74 05/25/21 14:30 36.3 C L 74 16 136/59 L 97 Intake/Output Intake/Output: Intake & Output 05/23/21 05/24/21 05/25/21 05/26/21 23:59 23:59 23:59 23:59 Intake Total 50 60 150 1015 Output Total 1999 400 Balance 50 1940 -250 1015 Meds/Results Medications: Active Medications Generic Name Dose Route Start Last Admin Trade Name Sosa PRN Reason Stop Dose Admin Acetaminophen 650 mg 05/23/21 18:15 Acetaminophen 325 Mg Tablet PO Q4H PRN Mild Pain (1-3) or Fever Amiodarone HCl 200 mg 05/24/21 09:00 05/26/21 08:41 Amiodarone Hcl 200 Mg Tablet PO 200 mg DAILY DEBRA Administration Apixaban 2.5 mg 05/24/21 09:00 05/26/21 08:41 Apixaban 2.5 Mg Tablet PO 2.5 mg BID DEBRA Administration Dextrose 12.5 g
--- NOTE | 2021-05-26 12:19 | PM.PNNEP ---
Progress Note: A&P Assessment and Plan (1) End-stage renal disease (ESRD): Code(s): N18.6 - End stage renal disease Status: Chronic Assessment and Plan: HD tomorrow to maintain outpatient schedule of Thu/Thu/Thursday follow electrolytes, volume status, and clearance (2) Hyperkalemia: Code(s): E87.5 - Hyperkalemia Status: Acute Assessment and Plan: resolved presumably secondary to missed dialysis treatment on Thursday (05/22/21) corrected with medical management and dialysis follow trend (3) Altered mental status: Code(s): R41.82 - Altered mental status, unspecified Status: Acute Assessment and Plan: improving if not back to baseline etiology not clear but suspect due to medication (muscle relaxers) follow mentation (improving with supportive therapy) (4) Hypertension: Code(s): I10 - Essential (primary) hypertension Status: Chronic Assessment and Plan: continue home medications follow trend of hemodynamics (5) Anemia: Code(s): D64.9 - Anemia, unspecified Status: Chronic Assessment and Plan: due to ESRD Epogen with HD follow trend of H/H (6) Diabetes mellitus: Code(s): E11.9 - Type 2 diabetes mellitus without complications Status: Acute Assessment and Plan: follow accuchecks on Lantus and SSI Will continue to follow. Subjective Date/time seen: 05/26/21 12:19 Mentation continue to improve each day; working with PT/OT as tolerated; no apparent distress noted; overall, feeling significantly better; no issues/events overnight or earlier this morning. Exam Narrative: General: WD/WN female in NAD Heart: normal S1 and S2; no rub Lungs: clear to auscultation Abdomen: soft, nontender, nondistended, positive bowel sounds Extremities: no cyanosis or clubbing; no edema Skin: warm and intact Objective Data Vital Signs Vital Signs: Vital Signs Temp Pulse Resp BP Pulse Ox 05/26/21 12:01 80 05/26/21 11:40 36.3 C L 05/26/21 08:41 80 05/26/21 08:37 16 96 05/26/21 08:03 75 05/26/21 05:56 36.3 C L 75 16 127/59 L 96 05/26/21 04:00 79 05/26/21 03:48 97 05/26/21 00:00 75 05/25/21 20:53 36.6 C 73 16 122/64 99 05/25/21 20:00 71 05/25/21 16:03 74 05/25/21 14:30 36.3 C L 74 16 136/59 L 97 Intake/Output Intake/Output: Intake & Output 05/23/21 05/24/21 05/25/21 05/26/21 23:59 23:59 23:59 23:59 Intake Total 50 60 150 1015 Output Total 2000 400 Balance 50 -1940 -250 1015 Meds/Results Medications: Active Medications Generic Name Dose Route Start Last Admin Trade Name Freq PRN Reason Stop Dose Admin Acetaminophen 650 mg 05/23/21 18:15 Acetaminophen 325 Mg Tablet PO Q4H PRN Mild Pain (1-3) or Fever Amiodarone HCl 200 mg 05/24/21 09:00 05/26/21 08:41 Amiodarone Hcl 200 Mg Tablet PO 200 mg DAILY DEBRA Administration Apixaban 2.5 mg 05/24/21 09:00 05/26/21 08:41 Apixaban 2.5 Mg Tablet PO 2.5 mg BID DEBRA Administration Dextrose 12.5 gm 05/23/21 18:19 Dextrose 50% 25 Gm/50 Ml Syringe IV PUSH PRN PRN Hypoglycemia Protocol Docusate Sodium 100 mg 05/26/21 21:00 Docusate Sodium 100 Mg Capsule PO Q12HR DEBRA Gabapentin 300 mg 05/24/21 09:00 05/26/21 12:37 Gabapentin 300 Mg Capsule PO 300 mg TID DEBRA Administration Glucagon 1 mg 05/23/21 18:19 Glucagon For Inj 1 Mg Vial IM PRN PRN Hypoglycemia Protocol Glucose 15 gm 05/23/21 18:19 Glucose Oral Gel 15 Gm Of Glucse In 37.5 Gm Tube PO PRN PRN Hypoglycemia Protocol Dextrose 1,000 mls @ 100 mls/hr 05/23/21 18:19 Dextrose 5% 1,000 Ml IVPB PRN PRN Hypoglycemia Protocol Albumin Human 50 mls @ 999 mls/hr 05/24/21 03:27 Albutein IVPB 06/23/21 03:26 Q10M PRN HYPOTENSION Insulin Aspart 5 unit
[2021-05-26 16:44] LABS: Glucose Point of Care 168 mg/dl (65-105)
[2021-05-26 20:21] LABS: Glucose Point of Care 250 mg/dl (65-105)
[2021-05-26] MEDS: DOCUSATE SODIUM 100 MG CAPSULE PO (20:38)
[2021-05-26] MEDS: INSULIN GLARGINE (*BKC) 100 UNITS/ML 30 UNITS SUB-Q (20:38)
[2021-05-27] VITALS (20 sets, daily range): BP systolic 90–136; BP diastolic 52–68; PULSE 67–84; RESP 20–21; TEMP 35.7–36.6; O2SAT 97–100
[2021-05-27 05:19] LABS: Hematocrit 26.7 % (37.0-47.0); Hemoglobin 8.7 g/dL (12.0-15.0); Mean Corpuscular HGB Conc 32.6 g/dl (32-36); Mean Corpuscular Hemoglobin 31.1 pg (26-34); Mean Corpuscular Volume 95.4 fl (80-100); Mean Platelet Volume 9.2 fl (7.4-10.4); Platelet Count Result 213 k/mm3 (150-375); Red Cell Distribution Width 13.2 % (11.5-14.5); White Blood Count 9.3 K/mm3 (4.5-10.0)
[2021-05-27 05:36] LABS: Albumin Level 3.5 g/dL (3.5-5.1); Anion Gap 12 mmol/L (8-16); Blood Urea Nitrogen 58 mg/dL (7-17); Calcium 8.3 mg/dL (8.4-10.2); Carbon Dioxide 24 mmol/L (22-30); Chloride 101 mmol/L (98-107); Estimated CRCL calculation 10 ml/min; Estimated Glomerular Filt Rate 7; Glucose 172 mg/dL (65-110); Phosphorus 5.7 mg/dL (2.5-4.5); Potassium 3.6 mmol/L (3.4-5.0); Sodium 137 mmol/L (137-145)
[2021-05-27] MEDS: traMADol HCL (*CRX) 25 MG TABLET PO ×3 (05:44→17:51)
--- NOTE | 2021-05-27 07:49 | PC.NURSE ---
Pt to Dialysis per bed 0735 05/27/21.
[2021-05-27] MEDS: DOCUSATE SODIUM 100 MG CAPSULE PO ×2 (11:42→20:41)
[2021-05-27] MEDS: AMIODARONE HCL 200 MG TABLET PO (11:42)
[2021-05-27] MEDS: APIXABAN 2.5 MG TABLET PO ×2 (11:43→16:39)
[2021-05-27] MEDS: EUCERIN CREAM 120 GM JAR 1 APPLIC TOPICAL ×2 (11:44→20:42)
[2021-05-27] MEDS: TOLNAFTATE 1% POWDER 45 GM BTL 1 APPLIC TOPICAL ×2 (11:44→20:42)
[2021-05-27 12:00] LABS: Glucose Point of Care 108 mg/dl (65-105)
--- NOTE | 2021-05-27 12:04 | PCNFU ---
Nutrition Follow-Up Complete: Increased Protein needs as related to wounds as evidenced by unstageable PU reported. Goal: adequate intake of at least 75% of meals/supplements Patient is progressing towards goal. We will continue current goal. Pt current nutrition is [facility]/Renal Dialysis with Nepro shake BID and Quoc BID. Last recorded weight is 94.7 kg, down from 97.5 kg on admit. Patient is on dialysis. Bowel Motility: +BM reported 4/3 Labs Reviewed:PO4 5.7,BUN 58, CR 5.2,Glu 172, Hct 26.7, Hgb 8.7 Meds Noted: Lidoderm, Eliquis, Pacerone, Lantus, Ultram, Colace Skin:unstageable PU-right heel. Additional Notes: Dialysis today. Patient eating 50-100% of [facility]/Renal diet. Nepro shakes are providing an additional 425 kcals and 19 gms protein. Protein Modular of Quoc providing an additional 90 kcals and 2.5 gms protein. Agree with diet orders at this time. Monitoring: RD will monitor every 5 days.
[2021-05-27] MEDS: INSULIN ASPART (*BKC) 100 UNITS/ML SUB-Q ×2 (12:36→16:33)
[2021-05-27] MEDS: GABAPENTIN 300 MG CAPSULE PO ×2 (12:37→16:40)
--- NOTE | 2021-05-27 13:46 | PM.PNNEP ---
Progress Note: A&P Assessment and Plan (1) End-stage renal disease (ESRD): Code(s): N18.6 - End stage renal disease Status: Chronic Assessment and Plan: HD underway (2) Hyperkalemia: Code(s): E87.5 - Hyperkalemia Status: Acute Assessment and Plan: resolved potassium is normal today (3) Altered mental status: Code(s): R41.82 - Altered mental status, unspecified Status: Acute Assessment and Plan: resolved (4) Hypertension: Code(s): I10 - Essential (primary) hypertension Status: Chronic Assessment and Plan: blood pressure 100-130 (5) Anemia: Code(s): D64.9 - Anemia, unspecified Status: Chronic Assessment and Plan: due to ESRD Epogen with HD follow trend of H/H (6) Diabetes mellitus: Code(s): E11.9 - Type 2 diabetes mellitus without complications Status: Acute Assessment and Plan: on Accu-Cheks and sliding-scale insulin per hospitalist Subjective Date/time seen: 05/27/21 13:46 Interval history: Osiris is feeling better. No chest pain or shortness of breath she is on dialysis and tolerating it well. Her blood pressure is doing well. She was seen at 8:30 a.m. Exam Narrative: General: WD/WN female in NAD Heart: normal S1 and S2; no rub Lungs: clear Abdomen: soft, nontender, nondistended, positive bowel sounds Extremities: no cyanosis or clubbing; no edema Skin: no rash Objective Data Vital Signs Vital Signs: Vital Signs - 24 hr 05/26/21 14:45 05/26/21 16:03 05/26/21 20:00 Temperature 36.2 C L Pulse Rate 71 72 72 Respiratory Rate 16 Blood Pressure 121/60 Pulse Oximetry 99 05/26/21 22:00 05/27/21 00:00 05/27/21 04:00 Temperature 36.3 C L Pulse Rate 71 67 75 Respiratory Rate 21 H Blood Pressure 123/49 L Pulse Oximetry 100 05/27/21 06:00 05/27/21 08:03 05/27/21 08:06 Temperature 36.2 C L Pulse Rate 68 71 Respiratory Rate 21 H Blood Pressure 132/59 L Pulse Oximetry 100 97 05/27/21 08:40 05/27/21 09:20 05/27/21 09:39 Temperature Pulse Rate 73 70 70 Respiratory Rate 20 Blood Pressure 121/64 105/61 130/60 Pulse Oximetry 05/27/21 09:40 05/27/21 10:00 05/27/21 10:20 Temperature Pulse Rate 67 81 83 Respiratory Rate Blood Pressure 134/62 117/66 90/60 L Pulse Oximetry 05/27/21 10:40 05/27/21 11:42 Temperature Pulse Rate 82 82 Respiratory Rate Blood Pressure 110/68 Pulse Oximetry Intake/Output Intake/Output: Intake & Output 05/24/21 05/25/21 05/26/21 05/27/21 23:59 23:59 23:59 23:59 Intake Total 60 150 1385 550 Output Total 1999 400 Balance -1940 -250 1385 550 Meds/Results Medications: Active Medications Generic Name Dose Route Start Last Admin Trade Name Freq PRN Reason Stop Dose Admin Acetaminophen 650 mg 05/23/21 18:15 Acetaminophen 325 Mg Tablet PO Q4H PRN Mild Pain (1-3) or Fever Amiodarone HCl 200 mg 05/24/21 09:00 05/27/21 11:42 Amiodarone Hcl 200 Mg Tablet PO 200 mg DAILY DEBRA Administration Apixaban 2.5 mg 05/24/21 09:00 05/27/21 11:43 Apixaban 2.5 Mg Tablet PO 2.5 mg BID DEBRA Administration Dextrose 12.5 gm 05/23/21 18:19 Dextrose 50% 25 Gm/50 Ml Syringe IV PUSH PRN PRN Hypoglycemia Protocol Docusate Sodium 100 mg 05/26/21 21:00 05/27/21 11:42 Docusate Sodium 100 Mg Capsule PO 100 mg Q12HR DEBRA Administration Epoetin Gurwinder-epbx 10,000 units 05/27/21 21:00 Epoetin Gurwinder-Epbx 10,000 Units/Ml Vial IV PUSH 05/27/21 21:01 ONCE ONE Gabapentin 300 mg 05/24/21 09:00 05/27/21 12:37 Gabapentin 300 Mg Capsule PO 300 mg TID DEBRA Administration Glucagon 1 mg 05/23/21 18:19 Glucagon For Inj 1 Mg Vial IM PRN PRN Hypoglycemia Protocol Glucose 15 gm 05/23/21 18:19 Glucose Oral Gel 15 Gm Of Glucse In 37.5 Gm Tube PO PRN PRN Hy
--- NOTE | 2021-05-27 13:46 | PM.DS ---
DS: Discharge Diagnosis Discharge Diagnosis (1) Vasculopathy: Code(s): I99.9 - Unspecified disorder of circulatory system Status: Acute (2) UTI (urinary tract infection): Code(s): N39.0 - Urinary tract infection, site not specified Status: Acute (3) Atrial fibrillation: Code(s): I48.91 - Unspecified atrial fibrillation Status: Acute Assessment and Plan: Patient was suspected history atrial fibrillation this is documented in the EMR Continue amiodarone and Eliquis Rate is controlled (4) Snoring: Code(s): R06.83 - Snoring Status: Acute Assessment and Plan: Patient's son that she snores frequently and wakes up more confused Will proceed with apnea link tonight (5) Anemia: Code(s): D64.9 - Anemia, unspecified Status: Chronic (6) Hypertension: Code(s): I10 - Essential (primary) hypertension Status: Chronic Assessment and Plan: Blood pressures reviewed and are generally stable but slightly elevated in the 150-160s systolic. She does not appear to be in any antihypertensive medications Monitor blood pressure trends (7) Hyperkalemia: Code(s): E87.5 - Hyperkalemia Status: Acute (8) Altered mental status: Code(s): R41.82 - Altered mental status, unspecified Status: Acute Assessment and Plan: Patient presented with increased confusion, unable to provide any history Possibly secondary to missed dialysis although I am unsure of the patients baseline She was A&Ox0 today and did not provide verbal responses (9) Diabetes mellitus: Code(s): E11.9 - Type 2 diabetes mellitus without complications Status: Acute Assessment and Plan: Poorly controlled. A1c is 10.4 Continue with Accu-Cheks, sliding scale insulin, hypoglycemic protocol 30 units Lantus q.h.s. 5 units NovoLog scheduled with meals (10) End-stage renal disease (ESRD): Code(s): N18.6 - End stage renal disease Status: Chronic Assessment and Plan: She is maintained on hemodialysis Thursday, Thursday, Thursday Appreciate nephrology consultation from dialysis management Patient missed dialysis on Monday 05/22 Monitor volume status and electrolytes Received dialysis today 05/25/2021 interval history: Patient is a 60-year-old female today patient is more alert and oriented, with past medical history end-stage renal disease on hemodialysis patient states patient states to 3 days prior to coming to emergency depart see had developed hip pain ventral local Urgent Care and patient was given muscle relaxant see took the medication and went to sleep, the medication made her quite lethargic and slept for 2 days and missed her dialysis presented emergency depart was found to have elevated potassium, patient was seen by Nephrology and had a dialysis, her potassium is trending down, patient remains clinically stable is feeling much better compared to when she arrived, will continue to monitor have PT OT evaluate the patient patient will have her scheduled dialysis and further recommendation to follow. 05/26/2021 interval history: Patient is a 60-year-old female today patient is more alert and oriented,Today patient is sitting in the chair plan to work with physical therapy, patient states see would like to go for rehab for going home, will discuss with social Service and further recommendation to follow, with past medical history end-stage renal disease on hemodialysis MWF, patient states 3 days prior to coming to emergency depart she had developed hip pain went to local Urgent Care and patient was given muscle relaxant she took the medication and went to sleep, the medication made her quite lethargic and slept for 2 days and missed her dialysis presented emergency depart was found to have elevated potassium, patient was seen by Nephrology and had a dialysis, her potassium is trending down, patient remains clinic
--- NOTE | 2021-05-27 14:11 | PC.NURSE ---
Pt returned from Dialysis per bed at 1140 05/27/21.
[2021-05-27 16:30] LABS: Glucose Point of Care 181 mg/dl (65-105)
[2021-05-27] MEDS: INSULIN GLARGINE (*BKC) 100 UNITS/ML 30 UNITS SUB-Q (20:42)
[2021-05-27 21:02] LABS: Glucose Point of Care 160 mg/dl (65-105)
[2021-05-28] VITALS (10 sets, daily range): BP systolic 126–135; BP diastolic 61–64; PULSE 71–89; RESP 17–20; TEMP 36.1–36.4; O2SAT 99–100
[2021-05-28 05:46] LABS: Hematocrit 27.8 % (37.0-47.0); Hemoglobin 9.1 g/dL (12.0-15.0); Mean Corpuscular HGB Conc 32.7 g/dl (32-36); Mean Corpuscular Hemoglobin 31.5 pg (26-34); Mean Corpuscular Volume 96.2 fl (80-100); Mean Platelet Volume 9.6 fl (7.4-10.4); Platelet Count Result 224 k/mm3 (150-375); Red Blood Count 2.89 M/mm3 (4.2-5.4); Red Cell Distribution Width 13.3 % (11.5-14.5); White Blood Count 8.9 K/mm3 (4.5-10.0)
[2021-05-28 06:17] LABS: Albumin Level 3.6 g/dL (3.5-5.1); Anion Gap 9 mmol/L (8-16); Blood Urea Nitrogen 29 mg/dL (7-17); Calcium 8.4 mg/dL (8.4-10.2); Carbon Dioxide 28 mmol/L (22-30); Chloride 99 mmol/L (98-107); Estimated CRCL calculation 14 ml/min; Estimated Glomerular Filt Rate 10; Glucose 110 mg/dL (65-110); Phosphorus 5.2 mg/dL (2.5-4.5); Potassium 3.5 mmol/L (3.4-5.0); Sodium 136 mmol/L (137-145)
[2021-05-28] MEDS: traMADol HCL (*CRX) 25 MG TABLET PO ×3 (06:34→21:05)
[2021-05-28] MEDS: GABAPENTIN 300 MG CAPSULE PO ×3 (08:07→17:11)
[2021-05-28] MEDS: DOCUSATE SODIUM 100 MG CAPSULE PO (08:07)
[2021-05-28] MEDS: AMIODARONE HCL 200 MG TABLET PO (08:07)
[2021-05-28] MEDS: APIXABAN 2.5 MG TABLET PO ×2 (08:07→17:11)
[2021-05-28] MEDS: INSULIN ASPART (*BKC) 100 UNITS/ML SUB-Q ×3 (08:11→17:10)
[2021-05-28 08:12] LABS: Glucose Point of Care 112 mg/dl (65-105)
[2021-05-28] MEDS: TOLNAFTATE 1% POWDER 45 GM BTL 1 APPLIC TOPICAL ×2 (08:17→21:05)
[2021-05-28] MEDS: EUCERIN CREAM 120 GM JAR 1 APPLIC TOPICAL ×2 (08:19→21:04)
--- NOTE | 2021-05-28 09:37 | PM.PNNEP ---
Progress Note: A&P Assessment and Plan (1) End-stage renal disease (ESRD): Code(s): N18.6 - End stage renal disease Status: Chronic Assessment and Plan: HD due tomorrow. She will get this at [facility]. (2) Hyperkalemia: Code(s): E87.5 - Hyperkalemia Status: Acute Assessment and Plan: resolved potassium is normal today (3) Altered mental status: Code(s): R41.82 - Altered mental status, unspecified Status: Acute Assessment and Plan: resolved (4) Hypertension: Code(s): I10 - Essential (primary) hypertension Status: Chronic Assessment and Plan: blood pressure 110-140 (5) Anemia: Code(s): D64.9 - Anemia, unspecified Status: Chronic Assessment and Plan: due to ESRD Epogen with HD Hemoglobin up to 9.1. (6) Diabetes mellitus: Code(s): E11.9 - Type 2 diabetes mellitus without complications Status: Acute Assessment and Plan: on Accu-Cheks and sliding-scale insulin per hospitalist Subjective Date/time seen: 05/28/21 09:37 Interval history: Osiris is feeling better. She is eager for discharge to rehab. Is going to [facility]. Exam Narrative: General: WD/WN female in NAD Heart: normal S1 and S2; no rub Lungs: clear bilaterally Abdomen: soft, nontender, nondistended, positive bowel sounds Extremities: no cyanosis or clubbing; no edema Skin: no rash or subQ nodules Objective Data Vital Signs Vital Signs: Vital Signs - 24 hr 05/27/21 09:39 05/27/21 09:40 05/27/21 10:00 Temperature Pulse Rate 70 67 81 Respiratory Rate 20 Blood Pressure 130/60 134/62 117/66 Pulse Oximetry 05/27/21 10:20 05/27/21 10:40 05/27/21 11:10 Temperature 36.4 C Pulse Rate 83 82 80 Respiratory Rate 20 Blood Pressure 90/60 L 110/68 123/67 Pulse Oximetry 05/27/21 11:42 05/27/21 12:00 05/27/21 14:00 Temperature 36.6 C Pulse Rate 82 84 84 Respiratory Rate 20 Blood Pressure 120/65 Pulse Oximetry 100 05/27/21 16:04 05/27/21 20:00 05/27/21 22:00 Temperature 36.1 C L Pulse Rate 82 73 74 Respiratory Rate 20 Blood Pressure 136/52 L Pulse Oximetry 98 05/28/21 00:00 05/28/21 04:00 05/28/21 06:00 Temperature 36.1 C L Pulse Rate 74 71 71 Respiratory Rate 20 Blood Pressure 135/62 Pulse Oximetry 99 05/28/21 08:07 Temperature Pulse Rate 82 Respiratory Rate Blood Pressure Pulse Oximetry Intake/Output Intake/Output: Intake & Output 05/25/21 05/26/21 05/27/21 05/28/21 23:59 23:59 23:59 23:59 Intake Total 150 1385 840 500 Output Total 400 2142 Balance -250 1385 -1302 500 Meds/Results Medications: Active Medications Generic Name Dose Route Start Last Admin Trade Name Freq PRN Reason Stop Dose Admin Acetaminophen 650 mg 05/23/21 18:15 Acetaminophen 325 Mg Tablet PO Q4H PRN Mild Pain (1-3) or Fever Amiodarone HCl 200 mg 05/24/21 09:00 05/28/21 08:07 Amiodarone Hcl 200 Mg Tablet PO 200 mg DAILY DEBRA Administration Apixaban 2.5 mg 05/24/21 09:00 05/28/21 08:07 Apixaban 2.5 Mg Tablet PO 2.5 mg BID DEBRA Administration Dextrose 12.5 gm 05/23/21 18:19 Dextrose 50% 25 Gm/50 Ml Syringe IV PUSH PRN PRN Hypoglycemia Protocol Docusate Sodium 100 mg 05/26/21 21:00 05/28/21 08:07 Docusate Sodium 100 Mg Capsule PO 100 mg Q12HR DEBRA Administration Gabapentin 300 mg 05/24/21 09:00 05/28/21 08:07 Gabapentin 300 Mg Capsule PO 300 mg TID DEBRA Administration Glucagon 1 mg 05/23/21 18:19 Glucagon For Inj 1 Mg Vial IM PRN PRN Hypoglycemia Protocol Glucose 15 gm 05/23/21 18:19 Glucose Oral Gel 15 Gm Of Glucse In 37.5 Gm Tube PO PRN PRN Hypoglycemia Protocol Dextrose 1,000 mls @ 100 mls/hr 05/23/21 18:19 Dextrose 5% 1,000 Ml IVPB PRN PRN Hypoglycemia Protocol Album
[2021-05-28 11:42] LABS: Glucose Point of Care 166 mg/dl (65-105)
[2021-05-28 13:27] LABS: EDCOVIDSCREEN Negative (Negative)
--- NOTE | 2021-05-28 13:55 | PM.IMPN ---
Progress Note: A&P Assessment and Plan (1) UTI (urinary tract infection): Code(s): N39.0 - Urinary tract infection, site not specified Status: Acute (2) Atrial fibrillation: Code(s): I48.91 - Unspecified atrial fibrillation Status: Acute (3) Snoring: Code(s): R06.83 - Snoring Status: Acute (4) Anemia: Code(s): D64.9 - Anemia, unspecified Status: Chronic (5) Hypertension: Code(s): I10 - Essential (primary) hypertension Status: Chronic (6) Hyperkalemia: Code(s): E87.5 - Hyperkalemia Status: Acute (7) Altered mental status: Code(s): R41.82 - Altered mental status, unspecified Status: Acute (8) Diabetes mellitus: Code(s): E11.9 - Type 2 diabetes mellitus without complications Status: Acute (9) Vasculopathy: Code(s): I99.9 - Unspecified disorder of circulatory system Status: Acute (10) End-stage renal disease (ESRD): Code(s): N18.6 - End stage renal disease Status: Chronic (11) Acute hyperkalemia: Code(s): E87.5 - Hyperkalemia Status: Acute (12) Weakness: Code(s): R53.1 - Weakness Status: Acute Additional Plan Cristiana Vasquez is a 60-year-old female with a history of ESRD on hemodialysis Thursday, Thursday, Thursday, type 2 diabetes mellitus, hypertension, atrial fibrillation on chronic anticoagulation, and chronic venous stasis who is seen in follow-up for altered mental status. The patient a poor historian is unable to provide any history. She does not provide any verbal responses during my encounter. 05/25/2021 interval history: Patient is a 60-year-old female today patient is more alert and oriented, with past medical history end-stage renal disease on hemodialysis patient states patient states to 3 days prior to coming to emergency depart see had developed hip pain ventral local Urgent Care and patient was given muscle relaxant see took the medication and went to sleep, the medication made her quite lethargic and slept for 2 days and missed her dialysis presented emergency depart was found to have elevated potassium, patient was seen by Nephrology and had a dialysis, her potassium is trending down, patient remains clinically stable is feeling much better compared to when she arrived, will continue to monitor have PT OT evaluate the patient patient will have her scheduled dialysis and further recommendation to follow. 05/26/2021 interval history: Patient is a 60-year-old female today patient is more alert and oriented,Today patient is sitting in the chair plan to work with physical therapy, patient states see would like to go for rehab for going home, will discuss with social Service and further recommendation to follow, with past medical history end-stage renal disease on hemodialysis MWF, patient states 3 days prior to coming to emergency depart she had developed hip pain went to local Urgent Care and patient was given muscle relaxant she took the medication and went to sleep, the medication made her quite lethargic and slept for 2 days and missed her dialysis presented emergency depart was found to have elevated potassium, patient was seen by Nephrology and had a dialysis, her potassium is trending down, patient remains clinically stable is feeling much better compared to when she arrived, will continue to monitor have PT OT evaluate the patient, patient will have her scheduled dialysis and further recommendation to follow. 05/27/2021 plan of care continued dc planning 05/28/2021 pending auth for dc to SNF review of medical record < 100k CFU in UCx but pt immunocompromised w mild urinary symptoms -> UTI ->Rocephin while in hospital cont current care CC for dc planning Subjective Date/time seen: 05/28/21 13:55 pt waiting for insurance auth doing ok no new complaints does report urinary symptoms of burning, does still make clear urine Exam Narrative: GEN: mo
[2021-05-28 16:58] LABS: Glucose Point of Care 163 mg/dl (65-105)
[2021-05-28 20:50] LABS: Hepatitis B Core Ab Total Nonreactive (Nonreactive)
[2021-05-28] MEDS: INSULIN GLARGINE (*BKC) 100 UNITS/ML 30 UNITS SUB-Q (21:04)
[2021-05-28 21:22] LABS: Glucose Point of Care 220 mg/dl (65-105)
[2021-05-29] VITALS (11 sets, daily range): BP systolic 125–139; BP diastolic 57–73; PULSE 66–84; RESP 14–18; TEMP 36.2–36.5; O2SAT 95–100
[2021-05-29 05:43] LABS: Hematocrit 28.5 % (37.0-47.0); Hemoglobin 9.2 g/dL (12.0-15.0); Mean Corpuscular HGB Conc 32.3 g/dl (32-36); Mean Corpuscular Hemoglobin 30.8 pg (26-34); Mean Corpuscular Volume 95.3 fl (80-100); Mean Platelet Volume 9.6 fl (7.4-10.4); Platelet Count Result 237 k/mm3 (150-375); Red Blood Count 2.99 M/mm3 (4.2-5.4); Red Cell Distribution Width 13.2 % (11.5-14.5); White Blood Count 8.7 K/mm3 (4.5-10.0)
[2021-05-29 05:56] LABS: Albumin Level 3.6 g/dL (3.5-5.1); Anion Gap 13 mmol/L (8-16); Blood Urea Nitrogen 35 mg/dL (7-17); Calcium 8.3 mg/dL (8.4-10.2); Carbon Dioxide 25 mmol/L (22-30); Chloride 98 mmol/L (98-107); Estimated CRCL calculation 11 ml/min; Estimated Glomerular Filt Rate 8; Glucose 160 mg/dL (65-110); Phosphorus 5.1 mg/dL (2.5-4.5); Potassium 3.2 mmol/L (3.4-5.0); Sodium 136 mmol/L (137-145)
[2021-05-29 07:56] LABS: Glucose Point of Care 160 mg/dl (65-105)
[2021-05-29] MEDS: traMADol HCL (*CRX) 25 MG TABLET PO ×2 (09:29→16:40)
[2021-05-29] MEDS: INSULIN ASPART (*BKC) 100 UNITS/ML SUB-Q ×4 (09:30→16:38)
[2021-05-29] MEDS: GABAPENTIN 300 MG CAPSULE PO ×3 (09:31→16:38)
[2021-05-29] MEDS: APIXABAN 2.5 MG TABLET PO ×2 (09:31→16:38)
[2021-05-29] MEDS: AMIODARONE HCL 200 MG TABLET PO (09:31)
[2021-05-29] MEDS: TOLNAFTATE 1% POWDER 45 GM BTL 1 APPLIC TOPICAL (09:33)
[2021-05-29] MEDS: EUCERIN CREAM 120 GM JAR 1 APPLIC TOPICAL (09:33)
--- NOTE | 2021-05-29 09:46 | PM.PNNEP ---
Progress Note: A&P Assessment and Plan (1) End-stage renal disease (ESRD): Code(s): N18.6 - End stage renal disease Status: Chronic Assessment and Plan: HD due Today. (2) Hyperkalemia: Code(s): E87.5 - Hyperkalemia Status: Acute Assessment and Plan: resolved potassium is normal today (3) Altered mental status: Code(s): R41.82 - Altered mental status, unspecified Status: Acute Assessment and Plan: resolved (4) Hypertension: Code(s): I10 - Essential (primary) hypertension Status: Chronic Assessment and Plan: blood pressure 110-140 (5) Anemia: Code(s): D64.9 - Anemia, unspecified Status: Chronic Assessment and Plan: due to ESRD Continue Epogen with HD Hemoglobin up to 9.2. (6) Diabetes mellitus: Code(s): E11.9 - Type 2 diabetes mellitus without complications Status: Acute Assessment and Plan: on Accu-Cheks and sliding-scale insulin per hospitalist Subjective Date/time seen: 05/29/21 09:46 Interval history: Osiris is feeling better. Fighting with her insurance company about going to [facility]. Exam Narrative: General: WD/WN female in NAD Heart: normal S1 and S2; no rub Lungs: clear bilaterally Abdomen: soft, nontender, nondistended, positive bowel sounds Extremities: no cyanosis or clubbing; no edema Skin: no rash Objective Data Vital Signs Vital Signs: Vital Signs - 24 hr 05/28/21 12:01 05/28/21 14:00 05/28/21 16:03 Temperature 36.4 C Pulse Rate 89 80 80 Respiratory Rate 20 Blood Pressure 126/64 Pulse Oximetry 100 05/28/21 19:33 05/28/21 20:00 05/29/21 00:00 Temperature 36.3 C L Pulse Rate 78 77 84 Respiratory Rate 17 Blood Pressure 134/61 Pulse Oximetry 99 05/29/21 03:49 05/29/21 04:00 05/29/21 09:31 Temperature 36.2 C L Pulse Rate 74 79 80 Respiratory Rate 18 Blood Pressure 125/67 Pulse Oximetry 98 Intake/Output Intake/Output: Intake & Output 05/26/21 05/27/21 05/28/21 05/29/21 23:59 23:59 23:59 23:59 Intake Total 6445 969 0180 500 Output Total 2142 Balance 1385 -1302 1460 500 Meds/Results Medications: Active Medications Generic Name Dose Route Start Last Admin Trade Name Freq PRN Reason Stop Dose Admin Acetaminophen 650 mg 05/23/21 18:15 Acetaminophen 325 Mg Tablet PO Q4H PRN Mild Pain (1-3) or Fever Amiodarone HCl 200 mg 05/24/21 09:00 05/29/21 09:31 Amiodarone Hcl 200 Mg Tablet PO 200 mg DAILY DEBRA Administration Apixaban 2.5 mg 05/24/21 09:00 05/29/21 09:31 Apixaban 2.5 Mg Tablet PO 2.5 mg BID DEBRA Administration Dextrose 12.5 gm 05/23/21 18:19 Dextrose 50% 25 Gm/50 Ml Syringe IV PUSH PRN PRN Hypoglycemia Protocol Docusate Sodium 100 mg 05/26/21 21:00 05/29/21 09:35 Docusate Sodium 100 Mg Capsule PO Not Given Q12HR DEBRA Gabapentin 300 mg 05/24/21 09:00 05/29/21 09:31 Gabapentin 300 Mg Capsule PO 300 mg TID DEBRA Administration Glucagon 1 mg 05/23/21 18:19 Glucagon For Inj 1 Mg Vial IM PRN PRN Hypoglycemia Protocol Glucose 15 gm 05/23/21 18:19 Glucose Oral Gel 15 Gm Of Glucse In 37.5 Gm Tube PO PRN PRN Hypoglycemia Protocol Dextrose 1,000 mls @ 100 mls/hr 05/23/21 18:19 Dextrose 5% 1,000 Ml IVPB PRN PRN Hypoglycemia Protocol Albumin Human 50 mls @ 999 mls/hr 05/24/21 03:27 Albutein IVPB 06/23/21 03:26 Q10M PRN HYPOTENSION Ceftriaxone Sodium 2 gm in 100 mls @ 200 mls/hr 05/28/21 14:00 05/28/21 14:51 Rocephin 2 Gm/D5w 100 Ml IVPB Infused Q24H DEBRA Infusion Albumin Human 50 mls @ 999 mls/hr 05/29/21 07:36 Albutein IVPB 05/30/21 07:35 Q10M PRN HYPOTENSION Insulin Aspart 5 units 05/24/21 12:00 05/29/21 09:30 Insulin Aspart (*Bkc) 100 Units/Ml 0.05 units/kg (5 units
[2021-05-29 11:45] LABS: Glucose Point of Care 249 mg/dl (65-105)
--- NOTE | 2021-05-29 14:45 | PM.IMPN ---
Progress Note: A&P Assessment and Plan (1) UTI (urinary tract infection): Code(s): N39.0 - Urinary tract infection, site not specified Status: Acute (2) Atrial fibrillation: Code(s): I48.91 - Unspecified atrial fibrillation Status: Acute (3) Snoring: Code(s): R06.83 - Snoring Status: Acute (4) Anemia: Code(s): D64.9 - Anemia, unspecified Status: Chronic (5) Hypertension: Code(s): I10 - Essential (primary) hypertension Status: Chronic (6) Hyperkalemia: Code(s): E87.5 - Hyperkalemia Status: Acute (7) Altered mental status: Code(s): R41.82 - Altered mental status, unspecified Status: Acute (8) Diabetes mellitus: Code(s): E11.9 - Type 2 diabetes mellitus without complications Status: Acute (9) Vasculopathy: Code(s): I99.9 - Unspecified disorder of circulatory system Status: Acute (10) End-stage renal disease (ESRD): Code(s): N18.6 - End stage renal disease Status: Chronic (11) Acute hyperkalemia: Code(s): E87.5 - Hyperkalemia Status: Acute (12) Weakness: Code(s): R53.1 - Weakness Status: Acute Additional Plan Cristiana Vasquez is a 60-year-old female with a history of ESRD on hemodialysis Thursday, Thursday, Thursday, type 2 diabetes mellitus, hypertension, atrial fibrillation on chronic anticoagulation, and chronic venous stasis who is seen in follow-up for altered mental status. The patient a poor historian is unable to provide any history. She does not provide any verbal responses during my encounter. 05/25/2021 interval history: Patient is a 60-year-old female today patient is more alert and oriented, with past medical history end-stage renal disease on hemodialysis patient states patient states to 3 days prior to coming to emergency depart see had developed hip pain ventral local Urgent Care and patient was given muscle relaxant see took the medication and went to sleep, the medication made her quite lethargic and slept for 2 days and missed her dialysis presented emergency depart was found to have elevated potassium, patient was seen by Nephrology and had a dialysis, her potassium is trending down, patient remains clinically stable is feeling much better compared to when she arrived, will continue to monitor have PT OT evaluate the patient patient will have her scheduled dialysis and further recommendation to follow. 05/26/2021 interval history: Patient is a 60-year-old female today patient is more alert and oriented,Today patient is sitting in the chair plan to work with physical therapy, patient states see would like to go for rehab for going home, will discuss with social Service and further recommendation to follow, with past medical history end-stage renal disease on hemodialysis MWF, patient states 3 days prior to coming to emergency depart she had developed hip pain went to local Urgent Care and patient was given muscle relaxant she took the medication and went to sleep, the medication made her quite lethargic and slept for 2 days and missed her dialysis presented emergency depart was found to have elevated potassium, patient was seen by Nephrology and had a dialysis, her potassium is trending down, patient remains clinically stable is feeling much better compared to when she arrived, will continue to monitor have PT OT evaluate the patient, patient will have her scheduled dialysis and further recommendation to follow. 05/27/2021 plan of care continued dc planning 05/28/2021 pending auth for dc to SNF review of medical record < 100k CFU in UCx but pt immunocompromised w mild urinary symptoms -> UTI ->Rocephin while in hospital cont current care CC for dc planning 05/29/21 MEDICALLY CLEARED FOR DISCHARGE TO SNF cont supportive care [employer] working on dc Subjective Date/time seen: 05/29/21 14:45 no complaints waiting for insurance auth Exam
[2021-05-29 16:30] LABS: Glucose Point of Care 187 mg/dl (65-105)
[2021-05-29] MEDS: ACETAMINOPHEN 325 MG TABLET 650 MG PO (20:07)
[2021-05-29] MEDS: DOCUSATE SODIUM 100 MG CAPSULE PO (20:09)
[2021-05-29] MEDS: INSULIN GLARGINE (*BKC) 100 UNITS/ML 30 UNITS SUB-Q (20:12)
[2021-05-29 20:26] LABS: Glucose Point of Care 145 mg/dl (65-105)
--- NOTE | 2021-05-29 23:14 | PCHDNOTE ---
Patient refused to come to dialysis. Pt wants to have treatment tomorrow.
[2021-05-30] VITALS (23 sets, daily range): BP systolic 114–183; BP diastolic 60–100; PULSE 70–91; RESP 16–17; TEMP 36.4–37; O2SAT 99–100
[2021-05-30] MEDS: traMADol HCL (*CRX) 25 MG TABLET PO ×2 (00:16→09:21)
[2021-05-30] MEDS: EUCERIN CREAM 120 GM JAR 1 APPLIC TOPICAL ×2 (01:15→09:23)
[2021-05-30] MEDS: TOLNAFTATE 1% POWDER 45 GM BTL 1 APPLIC TOPICAL ×2 (01:15→09:22)
[2021-05-30] MEDS: ACETAMINOPHEN 325 MG TABLET 650 MG PO (02:02)
[2021-05-30 05:51] LABS: Hematocrit 26.8 % (37.0-47.0); Hemoglobin 8.6 g/dL (12.0-15.0); Mean Corpuscular HGB Conc 32.1 g/dl (32-36); Mean Corpuscular Volume 96.8 fl (80-100); Mean Platelet Volume 9.6 fl (7.4-10.4); Platelet Count Result 220 k/mm3 (150-375); Red Blood Count 2.77 M/mm3 (4.2-5.4); Red Cell Distribution Width 13.2 % (11.5-14.5); White Blood Count 8.7 K/mm3 (4.5-10.0)
[2021-05-30 06:04] LABS: Albumin Level 3.5 g/dL (3.5-5.1); Anion Gap 12 mmol/L (8-16); Blood Urea Nitrogen 42 mg/dL (7-17); Calcium 8.1 mg/dL (8.4-10.2); Carbon Dioxide 22 mmol/L (22-30); Chloride 101 mmol/L (98-107); Estimated CRCL calculation 10 ml/min; Estimated Glomerular Filt Rate 7; Glucose 172 mg/dL (65-110); Phosphorus 5.8 mg/dL (2.5-4.5); Potassium 3.3 mmol/L (3.4-5.0); Sodium 135 mmol/L (137-145)
[2021-05-30 07:54] LABS: Glucose Point of Care 171 mg/dl (65-105)
[2021-05-30] MEDS: INSULIN ASPART (*BKC) 100 UNITS/ML SUB-Q ×3 (09:21→16:52)
[2021-05-30] MEDS: AMIODARONE HCL 200 MG TABLET PO (09:21)
[2021-05-30] MEDS: GABAPENTIN 300 MG CAPSULE PO ×2 (09:21→16:52)
[2021-05-30] MEDS: APIXABAN 2.5 MG TABLET PO ×2 (09:21→16:52)
[2021-05-30 09:46] LABS: EDCOVIDSCREEN Negative (Negative)
--- NOTE | 2021-05-30 11:13 | PCNFU ---
Nutrition Follow-Up Complete: Increased Protein needs as related to wounds as evidenced by unstageable PU reported. goal: adequate intake of at least 75% of meals/supplements Patient is meeting current goal. No new goal. Pt current nutrition is [facility]/Renal Dialysis. Last recorded weight is 92 kg down from 97.5 kg on admit. Bowel Motility: +BM reported 4/5 Labs Reviewed:Glu 171, Cr 6.1,BUN 42, Na 135, Hct 26.8,Hgb 8.6 Meds Noted:Pacerone, Ultram, Lidoderm, Colace, Lantus, Eliquis. Skin: unstageable PU-right heel Additional Notes: Patient remains on a [facility]/Renal Dialysis diet. Patient states to no concerns with meals. Oral Intake has been 75-90% of meals. Patient has been receiving Protein Modular of Quoc BID for wound healing and Nepro shakes BID. Agree with diet orders. No further nutritional needs. Monitoring: RD will monitor every 7 days.
--- NOTE | 2021-05-30 11:37 | PM.DS ---
DS: Admitting Diagnosis Discharge Date 05/30/21 Admitting Diagnosis (1) End-stage renal disease (ESRD): Code(s): N18.6 - End stage renal disease Status: Acute Assessment and Plan: Patient believes that she is a Thursday, , and Thursday hemodialysis patient. As per emergency records patient does live in [place] and receives her hemodialysis there. Patient's potassium is elevated and Nephrology has been consult today recommend Lokelma 10 g once. Nephrology states they will dialyze patient tomorrow. Do appreciate all further recommendations from Nephrology. (2) Acute hyperkalemia: Code(s): E87.5 - Hyperkalemia Status: Acute Assessment and Plan: Nephrology spoke with emergency room physician and stated that Lokelma 10 g x 1 should be given and laboratory to be checked in the morning. (3) Weakness: Code(s): R53.1 - Weakness Status: Acute Assessment and Plan: Unsure of how long generalized weakness has been occurring. Will have PT/OT to evaluate and treat patient when she is able to participate. Patient currently lives alone and she will most likely not be able to return to this setting. (4) Altered mental status: Code(s): R41.82 - Altered mental status, unspecified Status: Acute Assessment and Plan: May be secondary to missing hemodialysis treatments. Patient is unable to give me any type of history so will attempt to obtain records from [facility] were she has been hospitalized previously. (5) Diabetes mellitus: Code(s): E11.9 - Type 2 diabetes mellitus without complications Status: Acute Assessment and Plan: Will have blood glucose monitoring before meals and at bedtime with sliding scale insulin available. (6) Stasis edema: Qualifiers: Laterality: right Qualified Code(s): I87.301 - Chronic venous hypertension (idiopathic) without complications of right lower extremity Code(s): I87.309 - Chronic venous hypertension (idiopathic) without complications of unspecified lower extremity Status: Acute Assessment and Plan: Will have wound nurse to evaluate patient's wounds and give any further recommendations. DS: Discharge Diagnosis Discharge Diagnosis (1) UTI (urinary tract infection): Code(s): N39.0 - Urinary tract infection, site not specified Status: Acute (2) Atrial fibrillation: Code(s): I48.91 - Unspecified atrial fibrillation Status: Acute (3) Snoring: Code(s): R06.83 - Snoring Status: Acute (4) Anemia: Code(s): D64.9 - Anemia, unspecified Status: Chronic (5) Hypertension: Code(s): I10 - Essential (primary) hypertension Status: Chronic (6) Hyperkalemia: Code(s): E87.5 - Hyperkalemia Status: Acute (7) Altered mental status: Code(s): R41.82 - Altered mental status, unspecified Status: Acute (8) Diabetes mellitus: Code(s): E11.9 - Type 2 diabetes mellitus without complications Status: Acute (9) Vasculopathy: Code(s): I99.9 - Unspecified disorder of circulatory system Status: Acute (10) End-stage renal disease (ESRD): Code(s): N18.6 - End stage renal disease Status: Chronic (11) Acute hyperkalemia: Code(s): E87.5 - Hyperkalemia Status: Acute (12) Weakness: Code(s): R53.1 - Weakness Status: Acute DS: Summary Hospital Course Reason for hospitalization: hyperkalemia Hospital Course: 60-year-old female with end-stage renal disease admitted to the hospital with hyperkalemia and altered mental status. Patient was presumed to have a toxic metabolic encephalopathy secondary to missed hemodialysis in association with muscle relaxant recently prescribed from a local urgent care clinic. Her confusion and lethargy resolved patient returned to her normal baseline mental status. Concern was raised for possible cellulitis however patient was evalu
[2021-05-30 15:15] LABS: Glucose Point of Care 119 mg/dl (65-105)
[2021-05-30 16:37] LABS: Glucose Point of Care 221 mg/dl (65-105)
[2021-05-30] MEDS: oxyCODONE HCL (*CRX) 2.5 MG TAB IR PO (16:50)
[2021-05-30] MEDS: oxyCODONE/ACETAMINOPHEN (*CRX) 5-325 MG TABLET 1 TABLET PO (16:51)
== END 2021-05-30 18:40 | DRG 640 ==
LOC: ANHED 18:14 → ANH2MED 19:39
PROVIDERS: Emergency Medicine; Hospitalist; Internal Medicine Nephrology; Physician Assistant; Admitting Provider Family Medicine; Emergency Provider Family Medicine; PCP Family Medicine; Visit Provider Family Medicine
DX: E87.5 Hyperkalemia (principal); G92.8 Other toxic encephalopathy; N18.6 End stage renal disease; I12.0 Hypertensive chronic kidney disease with stage 5 chronic kidney disease or end stage renal disease; I87.331 Chronic venous hypertension (idiopathic) with ulcer and inflammation of right lower extremity; L97.319 Non-pressure chronic ulcer of right ankle with unspecified severity; T48.205A Adverse effect of unspecified drugs acting on muscles, initial encounter; Z20.822 Contact with and (suspected) exposure to COVID-19; E11.22 Type 2 diabetes mellitus with diabetic chronic kidney disease; I87.301 Chronic venous hypertension (idiopathic) without complications of right lower extremity; I48.91 Unspecified atrial fibrillation; D63.1 Anemia in chronic kidney disease; R06.83 Snoring; E66.9 Obesity, unspecified; Z68.34 Body mass index [BMI] 34.0-34.9, adult; Z79.01 Long term (current) use of anticoagulants; Z99.2 Dependence on renal dialysis; Z89.512 Acquired absence of left leg below knee
CPT/HCPCS: 36415; 51701; 70450; 71045; 80048; 80053; 80069; 81001; 82948; 83036; 85025; 85027; 85610; 85730; 86704; 86706; 87040; 87077; 87086; 87186; 87340; 87426; 93005; 96365; 96367; 96372; 97110; 97162; 97165; 97530; 99285; A9270; C9803; G0257; G0378; J0610; J0696; J1644; J1815; J7030

== ENCOUNTER 2022-02-12 07:33 | Emergency (ER) | payer BC, MEDICAID, SELFPAY ==
[2022-02-12] VITALS (19 sets, daily range): BP systolic 123–158; BP diastolic 54–91; PULSE 70–76; RESP 10–21; TEMP 36.8; O2SAT 95–100
[2022-02-12 08:35] LABS: Strep Group A RT-PCR NOT DETECTED (Negative)
[2022-02-12 08:46] LABS: Influenza A QL RT-PCR Negative (Negative); Influenza B QL RT-PCR Negative (Negative); RSV RNA, RT-PCR Negative (Negative); SARS-CoV-2 RNA PCR Positive
--- NOTE | 2022-02-12 09:25 | ED.URI ---
HPI - URI/Sore Throat General Chief Complaint: Upper Respiratory Infection Stated Complaint: flu like symptoms Time Seen by Provider: 02/12/22 07:55 History of Present Illness HPI Narrative: Pt presents with a sore throat which started yesterday. Pt has mild runny nose. Pt denies fever or shortness of breath. Pt missed her dialysis appointment today and also on Thursday. Pt goes to [facility] in [place] and is M,W, F. Pt takes bus to and from dialysis. Related Data Home Medications Medication Instructions Recorded Confirmed amiodarone 200 mg tablet 200 mg PO DAILY 05/23/21 05/23/21 apixaban 2.5 mg tablet (Eliquis) 2.5 mg PO BID 05/23/21 05/23/21 baclofen 10 mg tablet 10 mg PO DAILY 05/23/21 05/23/21 gabapentin 300 mg capsule 300 mg PO TID 05/23/21 05/23/21 insulin glargine 100 unit/mL (3 30 unit subcut TID 05/23/21 05/23/21 mL) subcutaneous pen (Lantus Solostar U-100 Insulin) Allergies Allergy/AdvReac Type Severity Reaction Status Date / Time vancomycin Allergy Hives Verified 05/23/21 22:02 Review of Systems Review of Systems: All systems reviewed & are unremarkable except as noted in HPI and below PMFSH Past Medical History Medical History (Updated 02/12/22 @ 18:33 by Henry Mcintosh MD) Diabetes mellitus End stage renal disease End-stage renal disease (ESRD) Hypertension Stasis edema Surgical History Surgical History History of left below knee amputation Family History Family History Father Glaucoma Alzheimer's dementia Social History Social History Smoking status: Never smoker Alcohol intake: never Substance use: never Spiritual care concerns: No Exam Const: General: healthy appearing, no acute distress and alert Nutritional Appearance: well nourished Orientation/consciousness: patient oriented x3 Limitations: no limitations HENMT: Head: normal to inspection Face/Nose/Sinus: Normal external nose present Face and sinus: normal facial exam Mouth: Yes Normal oral and palatal mucosa present Throat: posterior oropharynx normal Eyes: Conjunctivae: conjunctivae normal EOM: EOMs intact bilaterally Neck: Neck: normal visual inspection and no lymphadenopathy Chest: Chest palpation & inspection: normal inspection of the chest Resp: Effort & Inspection: normal respiratory effort Auscultation: clear to auscultation bilaterally Cardio: Rate: regular rate Rhythm: regular rhythm GI: GI Palp: Yes Soft to palpation Skin: General skin exam: normal color Rashes: no rashes Neuro: General: patient oriented x3, moves all extremities, no meningeal signs, no focal motor deficits and CN's II-XI intact bilaterally Cranial nerves: Yes Nystagmus not present Speech: normal speech Extrem: General: normal to inspection and no clubbing, cyanosis or edema Psych: Mental Status: mental status grossly normal Affect: normal affect Attitude: cooperative Course Course Emergency Course: discussed with dr mcintosh, does not recommend paxlovid in this patient. Will have social scientist contact dialysis in area to try to get her in. Pt will also need transportation both to and from dialysis which she will work on. social scientist arranged for dialysis at 1200, will discharge to dialysis Vital Signs Vital signs: Vital Signs Temperature 98.3 F 02/12/22 07:38 Pulse Rate 76 02/12/22 07:38 Respiratory Rate 14 02/12/22 07:38 Blood Pressure 129/75 02/12/22 07:38 Pulse Oximetry 96 02/12/22 07:38 Temperature 98.3 F 02/12/22 07:38 Pulse Rate 71 02/12/22 10:50 Respiratory Rate 16 02/12/22 10:50 Blood Pressure 155/66 H 02/12/22 10:50 Pulse Oximetry 100 02/12/22 10:50 Oxygen Delivery Room Air 02/12/22 07:41 MDM - URI/Sore Throat Differential Diagnosis Differential diagnosis: Likely upper resp
--- NOTE | 2022-02-12 10:15 | PC.NURSE ---
Called by Deborah Callejas from [facility] in [place]. She let me know that they would be able to do dialysis any time after 1200 but were planning on leaving by 1500. Pt being discharged, transportation to [facility] in [place] being arranged.
--- NOTE | 2022-02-12 18:28 | PM.CNNEP ---
Assessment and Plan Assessment and plan (1) End stage renal disease: Code(s): N18.6 - End stage renal disease Status: Acute Assessment and Plan: the patient has end-stage renal disease. She dialyzes at [facility] 3 times a week under the care of Dr. Mejias the cause of the ESRD is diabetes and hypertension. She does well on dialysis. She goes every treatment. She does not gain a whole lot a weight between treatments. She did miss on Thursday. Time she does have some problems with potassium and locally she does not have a high potassium today. She probably does not have much fluid on. We did take some fluid off today. (2) COVID-19: Code(s): U07.1 - COVID-19 Status: Acute Assessment and Plan: The patient will go on respiratory isolation. (3) Hypertension: Code(s): I10 - Essential (primary) hypertension Status: Chronic Assessment and Plan: Systolic running between 120 and 150. Will resume outpatient medication (4) Diabetes mellitus: Code(s): E11.9 - Type 2 diabetes mellitus without complications Status: Acute Assessment and Plan: hospitalist to manage this History of Present Illness Reason for Consult Consult date: 02/12/22 Chief Complaint Chief complaint: flu like symptoms History of Present Illness Narrative: Belgica is a very pleasant 61-year-old lady who has multiple medical problems including end-stage renal disease on dialysis 3 times a week, hypertension, diabetes, edema, left [id number] amputation, decreased visual acuity. Patient says that she was due for dialysis on Thursday but she had a migraine and for got to call ACT in till it was too late. So she did not go to dialysis Thursday. last night the patient started feeling poorly. She had a sore throat and runny nose. This morning she woke up and it was worse. She came to the ER to get evaluated. She tested positive for COVID. She is not on oxygen. She was going to be discharged but she had to go to dialysis and unfortunately dialysis did not have a way for her to get home after the treatment. So she was admitted for dialysis. He had the dialysis earlier this afternoon and she is feeling okay now. She still has her head cold symptoms but she does not have any shortness of breath or chest pain. She almost always goes to dialysis routinely. Review of Systems Constitutional: Constitutional: Reports no additional constitutional complaints Eyes: Eyes: Reports no additional eye complaints ENT: Reports system reviewed and no additional complaints, except as documented Cardiovascular: Cardiovascular: Reports no additional cardiovascular complaints Respiratory: Respiratory: Reports no additional respiratory complaints Gastrointestinal: Gastrointestinal: Reports no additional gastrointestinal complaints Genitourinary: Genitourinary: Reports no additional female genitourinary complaints Musculoskeletal: Musculoskeletal: Reports no additional musculoskeletal complaints Integumentary/Breasts: Skin/Breast: Reports system reviewed and no additional complaints, except as docu Neurologic: Reports system reviewed and no additional complaints, except as documented Psychiatric: Psychiatric: Reports no additional psychiatric complaints Endocrine: Endocrine: Reports no additional endocrine complaints PMFSH Past Medical History Medical History (Updated 02/12/22 @ 18:33 by Henry Mcintosh MD) Diabetes mellitus End stage renal disease End-stage renal disease (ESRD) Hypertension Stasis edema Surgical History Surgical History History of left below knee amputation Family History Family History Father Glaucoma Alzheimer's dementia Social History Social History Smoking
== END 2022-02-12 11:24 | disposition home or self-care (01) ==
PROVIDERS: Emergency Provider Emergency Medicine; PCP Family Medicine
DX: U07.1 COVID-19 (principal); E11.22 Type 2 diabetes mellitus with diabetic chronic kidney disease; I12.0 Hypertensive chronic kidney disease with stage 5 chronic kidney disease or end stage renal disease; N18.6 End stage renal disease; Z99.2 Dependence on renal dialysis; Z79.01 Long term (current) use of anticoagulants; Z79.4 Long term (current) use of insulin
CPT/HCPCS: 87637; 87651; 99283

== ENCOUNTER 2022-02-12 12:26 | Observation (INO) | payer BC, MEDICAID, SELFPAY ==
[2022-02-12] VITALS (18 sets, daily range): BP systolic 120–187; BP diastolic 36–92; PULSE 63–89; RESP 12–17; TEMP 36–36.7; O2SAT 94
--- NOTE | ~2022-02-12 | XR_ITS ---
EXAMINATION: XR chest 1V portable DATE: 02/14/2022 06:23 INDICATION: Pneumonia. TECHNIQUE: A single frontal view of the chest was obtained. COMPARISON: Chest single view 05/23/2021 FINDINGS: There is mild elevation of right hemidiaphragm. There are mild airspace opacities at the belle ng bases. No pleural effusion or pneumothorax. The heart size is normal. A left internal jugular cent ral venous catheter is seen with tip at the superior cavoatrial junction. There is a left subclavian port with tip at superior cavoatrial junction. IMPRESSION: 1. Mild airspace opacities at the lung bases, consistent with atelectasis versus pneumonia. Reviewed, dictated and finalized at location A. TER IMPRESSION: 1. Mild airspace opacities at the lung bases, consistent with atelectasis versu s pneumonia.
[2022-02-12 13:29] LABS: Basophils Percent Auto 0.3 % (0.2-1.2); Eosinophils Percent Auto 0.1 % (0-4.4); Hematocrit 30.9 % (37.0-47.0); Hemoglobin 9.5 g/dL (12.0-15.0); Immature Granulocyte Absolute 0.02 K/mm3 (0.00-0.031); Immature Granulocyte Percent A 0.3 % (0-0.5); Lymphocytes Absolute Auto 0.54 K/mm3 (0.9-3.2); Mean Corpuscular HGB Conc 30.7 g/dl (32-36); Mean Corpuscular Hemoglobin 29.9 pg (26-34); Mean Corpuscular Volume 97.2 fl (80-100); Mean Platelet Volume 9.9 fl (7.4-10.4); Monocytes Absolute Auto 0.7 K/mm3 (0.1-0.6); Monocytes Percent Auto 9.6 % (2.6-8.5); Neutrophils Absolute Auto 5.5 K/mm3 (1.3-6.7); Neutrophils Percent Auto 81.7 % (45.5-73.1); Platelet Count Result 161 k/mm3 (150-375); Red Blood Count 3.18 M/mm3 (4.2-5.4); Red Cell Distribution Width 15.9 % (11.5-14.5); White Blood Count 6.8 K/mm3 (4.5-10.0)
[2022-02-12 13:41] LABS: Alanine Aminotransferase 14 U/L (6-35); Albumin Level 3.9 g/dL (3.5-5.1); Alkaline Phosphatase 119 U/L (38-126); Anion Gap 14 mmol/L (8-16); Aspartate Amino Transferase 18 U/L (14-36); Bilirubin,Total 0.4 mg/dL (0.2-1.3); Blood Urea Nitrogen 93 mg/dL (7-17); Calcium 7.6 mg/dL (8.4-10.2); Carbon Dioxide 21 mmol/L (22-30); Chloride 95 mmol/L (98-107); Estimated Glomerular Filt Rate 4; Glucose 199 mg/dL (65-110); Potassium 4.8 mmol/L (3.4-5.0); Sodium 130 mmol/L (137-145)
[2022-02-12 13:44] LABS: INR 1.2; Prothrombin Time 14.8 Seconds (11.1-14.7)
[2022-02-12 13:45] LABS: Partial Thromboplastin Time 38.1 SECONDS (22.3-36.8)
--- NOTE | 2022-02-12 14:24 | ED.GENADULT ---
HPI - General Adult General Chief complaint: Unspecified Stated complaint: unspecified Time Seen by Provider: 02/12/22 14:24 History of Present Illness HPI narrative: Pt was seen by me earlier today and tested positive for covid. Pt had outpatient dialysis arranged and was sent to dialysis [facility] home as patient is wheelchair bound. Pt has no additional complaints. Discussed with Dr Mcintosh and he says to admit pt for dialysis here. Related Data Home Medications Medication Instructions Recorded Confirmed amiodarone 200 mg tablet 200 mg PO DAILY 05/23/21 05/23/21 apixaban 2.5 mg tablet (Eliquis) 2.5 mg PO BID 05/23/21 05/23/21 baclofen 10 mg tablet 10 mg PO DAILY 05/23/21 05/23/21 gabapentin 300 mg capsule 300 mg PO TID 05/23/21 05/23/21 insulin glargine 100 unit/mL (3 30 unit subcut TID 05/23/21 05/23/21 mL) subcutaneous pen (Lantus Solostar U-100 Insulin) Allergies Allergy/AdvReac Type Severity Reaction Status Date / Time vancomycin Allergy Hives Verified 05/23/21 22:02 Review of Systems Review of Systems: All systems reviewed & are unremarkable except as noted in HPI and below PMFSH Past Medical History Medical History (Updated 02/12/22 @ 18:33 by Henry Mcintosh MD) Diabetes mellitus End stage renal disease End-stage renal disease (ESRD) Hypertension Stasis edema Surgical History Surgical History History of left below knee amputation Family History Family History Father Glaucoma Alzheimer's dementia Social History Social History Smoking status: Never smoker Alcohol intake: never Substance use: never Spiritual care concerns: No Exam Const: General: cooperative, comfortable and no acute distress Orientation/consciousness: patient oriented x3 Limitations: no limitations HENMT: Throat: posterior oropharynx normal Eyes: General: appearance normal, both eyes and all related structures Neck: Neck: normal visual inspection Resp: Effort & Inspection: normal respiratory effort Auscultation: clear to auscultation bilaterally Cardio: Rate: regular rate Rhythm: regular rhythm GI: Inspection: normal to inspection GI Palp: No Tenderness to palpation present (GI) Auscultation: normal bowel sounds Skin: General skin exam: normal color Lesions: no lesions Rashes: no rashes Trauma: no lacerations or abrasions Neuro: General: patient oriented x3 and no focal motor deficits Extrem: General: normal to inspection and full ROM Psych: Appearance: grossly normal Speech and movement: Normal speech and movement present Affect: normal affect Attitude: cooperative Thought process: Normal thought process present Thought content: Yes Normal thought content present Insight: Good insight present (Psych) Judgement: Good judgement present (Psych) Course Vital Signs Vital signs: Vital Signs Temperature 97.2 F L 02/12/22 15:06 Pulse Rate 68 02/12/22 15:06 Respiratory Rate 16 02/12/22 15:06 Blood Pressure 151/71 H 02/12/22 15:06 Temperature 97.2 F L 02/12/22 15:06 Pulse Rate 74 02/12/22 19:02 Respiratory Rate 12 02/12/22 19:02 Blood Pressure 132/86 02/12/22 19:02 Pulse Oximetry 94 02/12/22 19:02 Medical Decision Making Vital Signs Vital Signs: Vital Signs Temperature 97.2 F L 02/12/22 15:06 Pulse Rate 68 02/12/22 15:06 Respiratory Rate 16 02/12/22 15:06 Blood Pressure 151/71 H 02/12/22 15:06 Temperature 97.2 F L 02/12/22 15:06 Pulse Rate 74 02/12/22 19:02 Respiratory Rate 12 02/12/22 19:02 Blood Pressure 132/86 02/12/22 19:02 Pulse Oximetry 94 02/12/22 19:02 Lab Data 02/12/22 13:14 02/12/22 13:13 Labs: Lab Results 02/12/22 02/12/22 02/12/22 Range
--- NOTE | 2022-02-12 18:10 | PC.NURSE ---
No patient in room. Pt. in dialysis
--- NOTE | 2022-02-12 18:35 | CONS_ITS ---
This report was moved to the correct visit on 03/12/2022. Original report was signed by Henry Mcintosh MD on 02/12/22 [id number]. Assessment and Plan Assessment and plan (1) End stage renal disease: Code(s): N18.6 - End stage renal disease Status: Acute Assessment and Plan: the patient has end-stage renal disease. She dialyzes at [facility] 3 times a week under the care of Dr. Mejias the cause of the ESRD is diabetes and hypertension. She does well on dialysis. She goes every treatment. She does not gain a whole lot a weight between treatments. She did miss on Thursday. Time she does have some problems with potassium and locally she does not have a high potassium today. She probably does not have much fluid on. We did take some fluid off today. (2) COVID-19: Code(s): U07.1 - COVID-19 Status: Acute Assessment and Plan: The patient will go on respiratory isolation. (3) Hypertension: Code(s): I10 - Essential (primary) hypertension Status: Chronic Assessment and Plan: Systolic running between 120 and 150. Will resume outpatient medication (4) Diabetes mellitus: Code(s): E11.9 - Type 2 diabetes mellitus without complications Status: Acute Assessment and Plan: hospitalist to manage this History of Present Illness Reason for Consult Consult date: 02/12/22 Chief Complaint Chief complaint: flu like symptoms History of Present Illness Narrative: Belgica is a very pleasant 61-year-old lady who has multiple medical problems including end-stage renal disease on dialysis 3 times a week, hypertension, diabetes, edema, left amkjt-xij-cmai amputation, decreased visual acuity. Patient says that she was due for dialysis on Thursday but she had a migraine and for got to call ACT in till it was too late. So she did not go to dialysis Thursday. last night the patient started feeling poorly. She had a sore throat and runny nose. This morning she woke up and it was worse. She came to the ER to get evaluated. She tested positive for COVID. She is not on oxygen. She was going to be discharged but she had to go to dialysis and unfortunately dialysis did not have a way for her to get home after the treatment. So she was admitted for dialysis. He had the dialysis earlier this afternoon and she is feeling okay now. She still has her head cold symptoms but she does not have any shortness of breath or chest pain. She almost always goes to dialysis routinely. Review of Systems Constitutional: Constitutional: Reports no additional constitutional complaints Eyes: Eyes: Reports no additional eye complaints ENT: Reports system reviewed and no additional complaints, except as documented Cardiovascular: Cardiovascular: Reports no additional cardiovascular complaints Respiratory: Respiratory: Reports no additional respiratory complaints Gastrointestinal: Gastrointestinal: Reports no additional gastrointestinal complaints Genitourinary: Genitourinary: Reports no additional female genitourinary complaints Musculoskeletal: Musculoskeletal: Reports no additional musculoskeletal complaints Integumentary/Breasts: Skin/Breast: Reports system reviewed and no additional complaints, except as docu Neurologic: Reports system reviewed and no additional complaints, except as documented Psychiatric: Psychiatric: Reports no additional psychiatric complaints Endocrine: Endocrine: Reports no additional endocrine complaints [facility] Past Medical History Medical History (Updated 02/12/22 @ 18:33 by Henry Mcintosh MD) Diabetes mellitus End stage renal disease End-stage renal disease (ESRD) Hyperte
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
[2022-02-13] VITALS (10 sets, daily range): BP systolic 136–141; BP diastolic 78–80; PULSE 67–96; RESP 16–18; TEMP 36.3–36.9; O2SAT 95–97
[2022-02-13 00:10] LABS: Hemoglobin A1C 9.1 % (<5.7)
[2022-02-13] MEDS: GABAPENTIN 300 MG CAPSULE PO ×4 (00:17→17:31)
[2022-02-13] MEDS: APIXABAN 2.5 MG TABLET PO ×3 (00:17→17:31)
[2022-02-13 05:41] LABS: Basophils Percent Auto 0.3 % (0.2-1.2); Hematocrit 29.2 % (37.0-47.0); Immature Granulocyte Absolute 0.02 K/mm3 (0.00-0.031); Immature Granulocyte Percent A 0.3 % (0-0.5); Lymphocytes Absolute Auto 0.51 K/mm3 (0.9-3.2); Lymphocytes Percent Auto 8.3 % (18.3-44.2); Mean Corpuscular HGB Conc 30.8 g/dl (32-36); Mean Corpuscular Hemoglobin 29.2 pg (26-34); Mean Corpuscular Volume 94.8 fl (80-100); Mean Platelet Volume 9.8 fl (7.4-10.4); Monocytes Absolute Auto 0.7 K/mm3 (0.1-0.6); Monocytes Percent Auto 11.9 % (2.6-8.5); Neutrophils Absolute Auto 4.8 K/mm3 (1.3-6.7); Neutrophils Percent Auto 79.2 % (45.5-73.1); Platelet Count Result 157 k/mm3 (150-375); Red Blood Count 3.08 M/mm3 (4.2-5.4); Red Cell Distribution Width 15.6 % (11.5-14.5); White Blood Count 6.1 K/mm3 (4.5-10.0)
[2022-02-13 06:02] LABS: Lactic Acid Reflex 0.7 mmol/L (0.7-2.0)
[2022-02-13 06:08] LABS: Alanine Aminotransferase 15 U/L (6-35); Albumin Level 3.7 g/dL (3.5-5.1); Alkaline Phosphatase 120 U/L (38-126); Anion Gap 15 mmol/L (8-16); Aspartate Amino Transferase 21 U/L (14-36); Bilirubin,Total 0.6 mg/dL (0.2-1.3); Blood Urea Nitrogen 60 mg/dL (7-17); Calcium 7.6 mg/dL (8.4-10.2); Carbon Dioxide 24 mmol/L (22-30); Chloride 98 mmol/L (98-107); Estimated Glomerular Filt Rate 6; Glucose 213 mg/dL (65-110); Magnesium 1.9 mg/dL (1.6-2.3); Phosphorus 7.2 mg/dL (2.5-4.5); Potassium 4.2 mmol/L (3.4-5.0); Sodium 137 mmol/L (137-145)
[2022-02-13 08:22] LABS: Glucose Point of Care 199 mg/dl (65-105)
[2022-02-13] MEDS: TOLNAFTATE 1% POWDER 45 GM BTL 1 APPLIC TOPICAL ×2 (10:39→21:06)
[2022-02-13] MEDS: AMIODARONE HCL 200 MG TABLET PO (10:44)
[2022-02-13 12:47] LABS: Glucose Point of Care 342 mg/dl (65-105)
[2022-02-13] MEDS: INSULIN ASPART (*BKC) 100 UNITS/ML SUB-Q ×2 (13:41→17:39)
[2022-02-13] MEDS: busPIRone HCL 10 MG TABLET PO ×2 (13:42→20:50)
[2022-02-13 17:33] LABS: Glucose Point of Care 263 mg/dl (65-105)
--- NOTE | 2022-02-13 18:45 | PM.IMPN ---
Progress Note: A&P Assessment and Plan (1) End stage renal disease: Code(s): N18.6 - End stage renal disease Status: Acute Assessment and Plan: -the patient goes to dialysis on Thursday he at [facility]. -the patient missed Thursday's dialysis. The patient did receive dialysis here today. -Dr. Mcintosh has been consulted and has already seen the patient. -check electrolytes and phosphorus in the a.m.. (2) COVID-19: Code(s): U07.1 - COVID-19 Status: Acute Assessment and Plan: -patient is currently on room air at this time. -continue supportive care. -the patient is not a candidate for palovid -the patient lives home alone and is very weak. Arrangements will need to be arranged for patient to have assistance at home. (3) Atrial fibrillation: Code(s): I48.91 - Unspecified atrial fibrillation Status: Acute Assessment and Plan: -the patient has paroxysmal atrial fibrillation. -patient is currently in sinus rhythm. -continue with the Eliquis -continue with amiodarone -check thyroid level since the patient is on amiodarone. (4) Anemia: Code(s): D64.9 - Anemia, unspecified Status: Chronic Assessment and Plan: Of chronic disease related to the end-stage renal disease. The patient is at her baseline. (5) Hypertension: Code(s): I10 - Essential (primary) hypertension Status: Chronic Assessment and Plan: -the patient is on amiodarone for her AFib. (6) Diabetes mellitus: Code(s): E11.9 - Type 2 diabetes mellitus without complications Status: Acute Assessment and Plan: -continue with Lantus at bedtime. -Accu-Cheks AC and HS with sliding scale insulin. Hypoglycemic protocol. Check A1c Subjective Date/time seen: 02/13/22 18:45 Patient is feeling slightly better. Mild sob, no chest pain No abdominal pain, nausea, no vomiting. Mood stable. Review of Systems Review of Systems: All systems reviewed & are unremarkable except as noted in HPI and below Constitutional: Constitutional: Reports as per HPI and Reports no additional constitutional complaints Eyes: Eyes: Reports as per HPI and Reports no additional eye complaints ENT: Reports system reviewed and no additional complaints, except as documented and Reports Normal hearing present Cardiovascular: Cardiovascular: Reports no additional cardiovascular complaints Respiratory: Respiratory: Reports no additional respiratory complaints and Reports no additional respiratory complaints Gastrointestinal: Gastrointestinal: Reports as per HPI and Reports no additional gastrointestinal complaints Musculoskeletal: Musculoskeletal: Reports no additional musculoskeletal complaints Integumentary/Breasts: Skin/Breast: Reports system reviewed and no additional complaints, except as docu and Reports as per HPI Neurologic: Reports system reviewed and no additional complaints, except as documented, Reports as per HPI and Reports Normal hearing present Psychiatric: Psychiatric: Reports no additional psychiatric complaints and Reports as per HPI Endocrine: Endocrine: Reports no additional endocrine complaints Hematologic/Lymphatic: Hematologic/Lymphatic: Reports no additional hematologic/lymphatic complaints Allergic/Immunologic: Allergic/Immunologic: Reports no additional allergic/immunologic complaints Exam Const: General: cooperative, healthy appearing, comfortable, no acute distress, well developed, alert, awake, Physically active, average body habitus, well nourished and overweight Nutritional Appearance: average body habitus, well nourished and overweight Orientation/consciousness: oriented to person, oriented to place, oriented to time and patient oriented x3 Limitations: no limitations HENMT: Head: normal to inspection, No palpable skull fracture present, normocephalic and atraumatic Ears: hearing grossly normal bilaterally and external ears n
[2022-02-13 20:33] LABS: Glucose Point of Care > 500 mg/dl (65-105)
[2022-02-13 20:53] LABS: Glucose 315 mg/dL (65-110)
[2022-02-13] MEDS: INSULIN ASPART (*BKC) 100 UNITS/ML 6 UNITS SUB-Q (20:55)
[2022-02-13] MEDS: INSULIN GLARGINE (*BKC) 100 UNITS/ML 30 UNITS SUB-Q (20:56)
[2022-02-13] MEDS: oxyCODONE HCL (*CRX) 2.5 MG TAB IR PO (20:58)
[2022-02-13] MEDS: oxyCODONE/ACETAMINOPHEN (*CRX) 5-325 MG TABLET 1 TABLET PO (20:59)
[2022-02-14] VITALS (17 sets, daily range): BP systolic 121–156; BP diastolic 28–89; PULSE 57–84; RESP 16–18; TEMP 36.4–37.1; O2SAT 99–100
[2022-02-14] MEDS: busPIRone HCL 10 MG TABLET PO ×2 (05:01→14:45)
[2022-02-14] MEDS: oxyCODONE/ACETAMINOPHEN (*CRX) 5-325 MG TABLET 1 TABLET PO (05:01)
[2022-02-14] MEDS: oxyCODONE HCL (*CRX) 2.5 MG TAB IR PO (05:02)
[2022-02-14 07:13] LABS: Basophils Percent Auto 0.3 % (0.2-1.2); Eosinophils Percent Auto 0.7 % (0-4.4); Hematocrit 29.9 % (37.0-47.0); Hemoglobin 9.2 g/dL (12.0-15.0); Immature Granulocyte Absolute 0.02 K/mm3 (0.00-0.031); Immature Granulocyte Percent A 0.3 % (0-0.5); Lymphocytes Percent Auto 15.5 % (18.3-44.2); Mean Corpuscular HGB Conc 30.8 g/dl (32-36); Mean Corpuscular Hemoglobin 29.3 pg (26-34); Mean Corpuscular Volume 95.2 fl (80-100); Mean Platelet Volume 10.1 fl (7.4-10.4); Monocytes Percent Auto 17.3 % (2.6-8.5); Neutrophils Absolute Auto 3.8 K/mm3 (1.3-6.7); Neutrophils Percent Auto 65.9 % (45.5-73.1); Platelet Count Result 149 k/mm3 (150-375); Red Blood Count 3.14 M/mm3 (4.2-5.4); Red Cell Distribution Width 15.6 % (11.5-14.5); White Blood Count 5.8 K/mm3 (4.5-10.0)
[2022-02-14 07:32] LABS: Alanine Aminotransferase 13 U/L (6-35); Albumin Level 3.7 g/dL (3.5-5.1); Alkaline Phosphatase 107 U/L (38-126); Anion Gap 14 mmol/L (8-16); Aspartate Amino Transferase 20 U/L (14-36); Bilirubin,Total 0.5 mg/dL (0.2-1.3); Blood Urea Nitrogen 78 mg/dL (7-17); Calcium 7.6 mg/dL (8.4-10.2); Carbon Dioxide 22 mmol/L (22-30); Chloride 99 mmol/L (98-107); Estimated Glomerular Filt Rate 5; Glucose 129 mg/dL (65-110); Potassium 4.2 mmol/L (3.4-5.0); Sodium 135 mmol/L (137-145)
[2022-02-14 08:48] LABS: Glucose Point of Care 127 mg/dl (65-105)
[2022-02-14] MEDS: AMIODARONE HCL 200 MG TABLET PO (08:59)
[2022-02-14] MEDS: GABAPENTIN 300 MG CAPSULE PO ×3 (08:59→16:20)
[2022-02-14] MEDS: APIXABAN 2.5 MG TABLET PO ×2 (08:59→16:20)
[2022-02-14] MEDS: TOLNAFTATE 1% POWDER 45 GM BTL 1 APPLIC TOPICAL (09:01)
--- NOTE | 2022-02-14 10:02 | PM.IMPN ---
Progress Note: A&P Assessment and Plan (1) End stage renal disease: Code(s): N18.6 - End stage renal disease Status: Acute Assessment and Plan: -the patient goes to dialysis on Thursday he at [facility]. - Patient seen and examined during hemodialysis. she had a stable run without reported issues. (2) COVID-19: Code(s): U07.1 - COVID-19 Status: Acute Assessment and Plan: -patient is currently on room air at this time. -continue supportive care. -the patient is not a candidate for paxlovid -the patient lives home alone . She was receiving home health aide at home. Resume home health care upon discharge. (3) Atrial fibrillation: Code(s): I48.91 - Unspecified atrial fibrillation Status: Acute Assessment and Plan: -the patient has paroxysmal atrial fibrillation. -patient is currently in sinus rhythm. -continue with the Eliquis -continue with amiodarone (4) Anemia: Code(s): D64.9 - Anemia, unspecified Status: Chronic Assessment and Plan: Of chronic disease related to the end-stage renal disease. The patient is at her baseline. Hemoglobin stable between 8.6 and 9.2. Stable hemoglobin. (5) Hypertension: Code(s): I10 - Essential (primary) hypertension Status: Chronic Assessment and Plan: -the patient is on amiodarone for her AFib. (6) Diabetes mellitus: Code(s): E11.9 - Type 2 diabetes mellitus without complications Status: Acute Assessment and Plan: - Blood glucose 129 on DC a.m. labs. -continue with Lantus at bedtime. -Accu-Cheks AC and HS with sliding scale insulin. Hypoglycemic protocol. Check A1c Time Spent With Patient Time with patient: 15 - 25 minutes Subjective Date/time seen: 02/14/22 10:02 Interval history: S:Patient was seen and examined during dialysis she had a stable run without issues. Review of Systems Review of Systems: All systems reviewed & are unremarkable except as noted in HPI and below Constitutional: Constitutional: Reports as per HPI and Reports no additional constitutional complaints Eyes: Eyes: Reports as per HPI and Reports no additional eye complaints ENT: Reports system reviewed and no additional complaints, except as documented and Reports Normal hearing present Cardiovascular: Cardiovascular: Reports no additional cardiovascular complaints Respiratory: Respiratory: Reports no additional respiratory complaints and Reports no additional respiratory complaints Gastrointestinal: Gastrointestinal: Reports as per HPI and Reports no additional gastrointestinal complaints Musculoskeletal: Musculoskeletal: Reports no additional musculoskeletal complaints Integumentary/Breasts: Skin/Breast: Reports system reviewed and no additional complaints, except as docu and Reports as per HPI Neurologic: Reports system reviewed and no additional complaints, except as documented, Reports as per HPI and Reports Normal hearing present Psychiatric: Psychiatric: Reports no additional psychiatric complaints and Reports as per HPI Endocrine: Endocrine: Reports no additional endocrine complaints Hematologic/Lymphatic: Hematologic/Lymphatic: Reports no additional hematologic/lymphatic complaints Allergic/Immunologic: Allergic/Immunologic: Reports no additional allergic/immunologic complaints Exam Const: General: cooperative, healthy appearing, comfortable, no acute distress, well developed, alert, awake, Physically active, average body habitus, well nourished and overweight Nutritional Appearance: average body habitus, well nourished and overweight Orientation/consciousness: oriented to person, oriented to place, oriented to time and patient oriented x3 Limitations: no limitations HENMT: Head: normal to inspection, No palpable skull fracture present, normocephalic and atraumatic Ears: hearing grossly normal bilaterally and external ears normal Face/Nose
--- NOTE | 2022-02-14 11:22 | PM.PNNEP ---
Progress Note: A&P Assessment and Plan (1) End stage renal disease: Code(s): N18.6 - End stage renal disease Status: Acute Assessment and Plan: The patient is due for dialysis today. Orders have been written. She will get a treatment and be discharged (2) COVID-19: Code(s): U07.1 - COVID-19 Status: Acute Assessment and Plan: no hypoxia. She has a little bit of a cough. (3) Hypertension: Code(s): I10 - Essential (primary) hypertension Status: Chronic Assessment and Plan: Blood pressure is under good control (4) Anemia: Code(s): D64.9 - Anemia, unspecified Status: Chronic Assessment and Plan: hemoglobin 9.2. Will get Epogen today Subjective Date/time seen: 02/14/22 11:22 Interval history: The patient is feeling fine today. Eager for discharge. No shortness of breath or chest pain. Objective Data Vital Signs Vital Signs: Vital Signs - 24 hr 02/13/22 12:00 02/13/22 14:00 02/13/22 16:00 Temperature 97.3 F L Pulse Rate 76 91 67 Respiratory Rate 16 Blood Pressure 136/78 Pulse Oximetry 95 Oxygen Delivery 02/13/22 21:53 02/13/22 20:00 02/13/22 20:00 Temperature 97.9 F Pulse Rate 68 68 67 Respiratory Rate 18 18 Blood Pressure 141/80 H Pulse Oximetry 97 97 Oxygen Delivery Room Air 02/14/22 00:00 02/14/22 06:00 02/14/22 04:00 Temperature 98.1 F Pulse Rate 59 L 60 60 Respiratory Rate 18 Blood Pressure 123/62 Pulse Oximetry 100 Oxygen Delivery 02/14/22 08:59 Temperature Pulse Rate 65 Respiratory Rate Blood Pressure Pulse Oximetry Oxygen Delivery Intake/Output Intake/Output: Intake & Output 02/11/22 02/12/22 02/13/22 02/14/22 23:59 23:59 23:59 23:59 Intake Total 1119 Output Total 1996 -1996 1119 Meds/Results Medications: Active Medications Generic Name Dose Route Start Last Admin Trade Name Freq PRN Reason Stop Dose Admin Amiodarone HCl 200 mg 02/13/22 09:00 02/14/22 08:59 Amiodarone Hcl 200 Mg Tablet PO 200 mg DAILY DEBRA Administration Apixaban 2.5 mg 02/12/22 23:05 02/14/22 08:59 Apixaban 2.5 Mg Tablet PO 2.5 mg BID DEBRA Administration Buspirone HCl 10 mg 02/13/22 14:00 02/14/22 05:01 Buspirone Hcl 10 Mg Tablet PO 10 mg Q8HR DEBRA Administration Dextrose 12.5 gm 02/12/22 22:58 Dextrose 50% 25 Gm/50 Ml Syringe IV PUSH PRN PRN Hypoglycemia Protocol Gabapentin 300 mg 02/12/22 23:05 02/14/22 08:59 Gabapentin 300 Mg Capsule PO 300 mg TID DEBRA Administration Glucagon 1 mg 02/12/22 22:58 Glucagon For Inj 1 Mg Vial IM PRN PRN Hypoglycemia Protocol Glucose 15 gm 02/12/22 22:58 Glucose Oral Gel 15 Gm Of Glucse In 37.5 Gm Tube PO PRN PRN Hypoglycemia Protocol Dextrose 1,000 mls @ 100 mls/hr 02/12/22 22:58 Dextrose 5% 1,000 Ml IVPB PRN PRN Hypoglycemia Protocol Albumin Human 50 mls @ 999 mls/hr 02/14/22 08:41 Albutein IVPB 02/15/22 08:40 Q10M PRN HYPOTENSION Insulin Aspart 2 - 5 units 02/13/22 08:00 02/14/22 09:07 Insulin Aspart (*Bkc) 100 Units/Ml SUB-Q Not Given TIDWM [facility] Protocol Insulin Glargine 30 units 02/13/22 21:00 02/13/22 20:56 Insulin Glargine (*Bkc) 100 Units/Ml SUB-Q 30 units HS [facility] Administration Oxycodone HCl 2.5 mg 02/13/22 14:09 02/14/22 05:02 Oxycodone Hcl (*Crx) 2.5 Mg Tab Ir PO 2.5 mg TID PRN Administration PAIN RATED 7-10 Oxycodone/Acetaminophen 1 tablet 02/13/22 14:08 02/14/22 05:01 Oxycodone/Acetaminophen (*Crx) 5-325 Mg Tablet PO 1 tablet TID PRN Administration PAIN RATED 7-10 Tolnaftate 1 applic 02/13/22 09:00 02/14/22 09:01 Tolnaftate 1% Powder 45 Gm Btl TOPICAL 1 applic Q12HR DEBRA Administration Radiology Results: ITS Impressions Chest X-Ray 02/14/22 06:33 IMPRESSION: 1. Mild airspace o
--- NOTE | 2022-02-14 11:42 | PM.DS ---
DS: Admitting Diagnosis Discharge Date 02/14/2022 Admitting Diagnosis (1) End stage renal disease: (2) COVID-19: (3) Atrial fibrillation: (4) Anemia: (5) Hypertension: (6) Diabetes mellitus: ? DS: Discharge Diagnosis Discharge Diagnosis (1) End stage renal disease: Code(s): N18.6 - End stage renal disease Status: Acute Assessment and Plan: -the patient goes to dialysis on Thursday he at [facility]. - Patient seen and examined during hemodialysis. she had a stable run without reported issues. (2) COVID-19: Code(s): U07.1 - COVID-19 Status: Acute Assessment and Plan: -patient is currently on room air at this time. -continue supportive care. -the patient is not a candidate for paxlovid -the patient lives home alone . She was receiving home health aide at home. Resume home health care upon discharge. (3) Atrial fibrillation: Code(s): I48.91 - Unspecified atrial fibrillation Status: Acute Assessment and Plan: -the patient has paroxysmal atrial fibrillation. -patient is currently in sinus rhythm. -continue with the Eliquis -continue with amiodarone (4) Anemia: Code(s): D64.9 - Anemia, unspecified Status: Chronic Assessment and Plan: Of chronic disease related to the end-stage renal disease. The patient is at her baseline. Hemoglobin stable between 8.6 and 9.2. Stable hemoglobin. (5) Hypertension: Code(s): I10 - Essential (primary) hypertension Status: Chronic Assessment and Plan: -the patient is on amiodarone for her AFib. (6) Diabetes mellitus: Code(s): E11.9 - Type 2 diabetes mellitus without complications Status: Acute Assessment and Plan: - Blood glucose 129 on DC a.m. labs. -continue with Lantus at bedtime. -Accu-Cheks AC and HS with sliding scale insulin. Hypoglycemic protocol. Check A1c DS: Summary Hospital Course Reason for hospitalization: Upper respiratory infection. Hospital Course: Please refer to admission H& P. Briefly, this is a 61-year-old female patient to has end-stage renal disease and has dialysis on Thursday.? The patient stated she has been having a runny nose and a sore throat that started yesterday.? Patient missed her dialysis on Thursday because she felt ill.? The patient typically goes to [facility] in [place] on Thursday.? The patient takes the bus to and from the dialysis.? The ED physician talk to Dr. Mcintosh who recommended that the patient try to get her to [facility] a by 12.? Also Paxil of it was not recommended for the patient.? However once the patient was taken to [facility] transportation was not figured out since the patient is wheelchair-bound and the patient was returned back to the emergency room.? Dr. Brennen gaffney was consulted and saw the patient here arrange for her to have dialysis today.? The patient was taken ICU and received dialysis.? Her H&H is 9.5 and 30.9.? Sodium slightly low at 130.? The patient tested positive for COVID.? Group a strep was not detected.? She was negative for influenza A/B and RSV.? The patient was admitted to observation status on the date of service of 02/12/2022. (1) End stage renal disease: ?Code(s): N18.6 - End stage renal disease ?Status:?Acute ?Assessment and Plan: ? The patient underwent up dialysis today.? She was seen examined during hemodialysis she had a stable run and was discharged afterwards. (2) COVID-19: ?Code(s): U07.1 - COVID-19 ?Status:?Acute ?Assessment and Plan: Patient had a positive COVID-19 test; there was no hypoxia.? She she was only symptomatic with a little bit of a cough. (3) Hypertension: ?Code(s): I10 - Essential (primary) hypertension ?Status:?Chronic ?Assessment and Plan: ? Blood pressure is under good control. Will continue home medication. (4) Anemia: ?Code(s): D64.9 - Anemia, unspecified ?Status
--- NOTE | 2022-02-14 12:49 | PM.EVENT ---
Event Note Event Note Event Note: patient is on dialysis and tolerating well. She was seen at 11:20 a.m.
[2022-02-14] MEDS: EPOETIN ALFA-EPBX 10,000 UNITS/ML VIAL 10000 UNITS IV PUSH (13:38)
[2022-02-14 14:58] LABS: Glucose Point of Care 182 mg/dl (65-105)
[2022-02-14] MEDS: ONDANSETRON HCL ODT 4 MG TABLET PO (16:19)
[2022-02-14 17:00] LABS: Glucose Point of Care 186 mg/dl (65-105)
--- NOTE | 2022-02-14 20:01 | PC.NURSE ---
[facility] HERE FOR PT TRANSPORT HOME. STAND AND PIVOT TO STRETCHER WITHOUT EVENT. DAY NURSE PROVIDED DISCHARGED INFORMATION. ALL BELONGINGS SENT WITH PATIENT
== END 2022-02-14 20:02 | disposition home health service (06) ==
LOC: ANHED 15:56 → ANH3MED 19:55 → ANH3MEDSUR 02-18 10:49
PROVIDERS: Internal Medicine; Nurse Practitioner; Admitting Provider Family Medicine; Emergency Provider Emergency Medicine; PCP Family Medicine; Visit Provider Internal Medicine
DX: I12.0 Hypertensive chronic kidney disease with stage 5 chronic kidney disease or end stage renal disease (principal); E11.22 Type 2 diabetes mellitus with diabetic chronic kidney disease; N18.6 End stage renal disease; Z99.2 Dependence on renal dialysis; D63.1 Anemia in chronic kidney disease; U07.1 COVID-19; I48.91 Unspecified atrial fibrillation; I87.309 Chronic venous hypertension (idiopathic) without complications of unspecified lower extremity; R91.8 Other nonspecific abnormal finding of lung field; Z89.512 Acquired absence of left leg below knee; Z89.411 Acquired absence of right great toe; Z79.01 Long term (current) use of anticoagulants; Z79.4 Long term (current) use of insulin; Z87.891 Personal history of nicotine dependence; Z79.899 Other long term (current) drug therapy
CPT/HCPCS: 36415; 71045; 80053; 82728; 82947; 82948; 83036; 83605; 83735; 84100; 84443; 85025; 85610; 85730; 96374; 99285; A9270; G0257; G0378; J1815; Q5105

== ENCOUNTER 2022-03-04 08:31 | Inpatient (IN) | payer BC, MEDICAID, SELFPAY ==
[2022-03-04 09:50] VITALS: BP 146/61; PULSE 71; RESP 18; TEMP 36.6; O2SAT 100; BMI 39.9
--- NOTE | 2022-03-04 09:57 | ADMGEN ---
This patient, Cristiana Ladd, was admitted to Medical Room 254-01. Patient/family oriented to hospital policies and general routines including ID bracelet, bed and alarms, visiting hours, pain management, procedures, bathroom and other care routines, personal items, smoking policy, room service/diet, and visiting hours. Information on how to activate the Rapid Response Team has been discussed. Patient/Family are encouraged to report perceived risks to care and to ask questions if they do not understand what they are told or what they should do.
[2022-03-04 10:00] VITALS: BMI 39.9
[2022-03-04 10:13] VITALS: BP 146/61; PULSE 71; RESP 18; TEMP 36.6; O2SAT 100; BMI 39.9
[2022-03-04 11:11] LABS: Potassium 4.6 mmol/L (3.4-5.0)
[2022-03-04 11:13] LABS: Hematocrit 29.3 % (37.0-47.0); Hemoglobin 9.1 g/dL (12.0-15.0); Mean Corpuscular HGB Conc 31.1 g/dl (32-36); Mean Corpuscular Hemoglobin 29.6 pg (26-34); Mean Corpuscular Volume 95.4 fl (80-100); Mean Platelet Volume 9.8 fl (7.4-10.4); Platelet Count Result 227 k/mm3 (150-375); Red Blood Count 3.07 M/mm3 (4.2-5.4); Red Cell Distribution Width 16.2 % (11.5-14.5); White Blood Count 9.9 K/mm3 (4.5-10.0)
[2022-03-04 11:25] LABS: Albumin Level 3.9 g/dL (3.5-5.1); Anion Gap 11 mmol/L (8-16); Blood Urea Nitrogen 46 mg/dL (7-17); Calcium 8.4 mg/dL (8.4-10.2); Carbon Dioxide 27 mmol/L (22-30); Chloride 93 mmol/L (98-107); Estimated CRCL calculation 9 ml/min; Estimated Glomerular Filt Rate 6; Glucose 166 mg/dL (65-110); Magnesium 1.7 mg/dL (1.6-2.3); Phosphorus 6.1 mg/dL (2.5-4.5); Sodium 131 mmol/L (137-145)
[2022-03-04] MEDS: cefTRIAXone 2 GM in SODIUM CHLORIDE 0.9% IV 100 ML 200 ML IVPB (11:26)
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
[2022-03-04] MEDS: GABAPENTIN 300 MG CAPSULE PO ×2 (13:12→16:36)
[2022-03-04 14:00] VITALS: BP 127/52; PULSE 82; RESP 18; TEMP 36.8; O2SAT 96
--- NOTE | 2022-03-04 14:00 | PM.CNNEP ---
Assessment and Plan Assessment and plan (1) End stage renal disease: Code(s): N18.6 - End stage renal disease Status: Chronic Assessment and Plan: plan HD tomorrow and continue M/W/F schedule follow electrolytes, volume status, and clearance (2) Cellulitis of right lower extremity: Code(s): L03.115 - Cellulitis of right lower limb Status: Acute Assessment and Plan: suspected based on physical exam as well as fever follow culture data empiric antibiotics follow clinical exam (3) Anemia: Code(s): D64.9 - Anemia, unspecified Status: Chronic Assessment and Plan: due to ESRD and possible acute illness Epogen with HD follow trend of H/H (4) Hypertension: Code(s): I10 - Essential (primary) hypertension Status: Chronic Assessment and Plan: reasonable control at this time continue home medications follow trend of hemodynamics (5) Diabetes mellitus: Code(s): E11.9 - Type 2 diabetes mellitus without complications Status: Chronic Assessment and Plan: follow accuchecks glycemic control Will continue to follow. History of Present Illness Reason for Consult Consult date: 03/04/22 Reason for consult: end stage renal disease Chief Complaint Chief complaint: R LE cellulitis,Hx Ashley, Nydia History of Present Illness Narrative: The patient is a 61-year-old female with a past medical history as outlined below who presented as a direct admission to [facility] from [facility] for further evaluation of right lower extremity cellulitis. The patient apparently presented to [facility] with reportedly fevers and altered mental status. I am unclear on the specifics with regard to her altered mental status as her mentation and apparently appears to be back to baseline currently. In any case, her caregiver did notice a fever as well as worsening erythema in her right lower extremity. Subsequent workup and evaluation in the ER demonstrated the patient be hemodynamically stable and in no apparent distress. Her exam seem to be consistent with what appeared to be a right lower extremity cellulitis so appropriate cultures were obtained and she was started on IV antibiotic therapy. As they do not have dialysis capabilities at [facility], she was transferred here to [facility] for ongoing therapy and management including her scheduled dialysis treatments. Since her subsequent transfer and admission here at [facility], her only real complaint is that of hunger as she has then been able to eat anything since her initial presentation to the outside hospital emergency room. Renal consultation was requested due to her end-stage renal disease. The patient is somewhat familiar to me as I take care of her outpatient dialysis needs. She normally dialyzes on a Thursday, Thursday, Thursday dialysis schedule at [facility] under my care. From a dialysis perspective, she is usually compliant with her dialysis treatments although sometimes transportation from home to dialysis can be problematic. Further complicating matter there are times where she has excessive fluid gains in between her dialysis treatments and they are unable to get her down to her dry weight. Dialysis access has also been an ongoing problem as she has been exhausted in terms of AV access placement and is currently dialysis catheter dependent. Her last dialysis treatment was on 03/03/22. Currently, the time my visit, she does not appear to be in acute distress. Review of Systems Review of Systems: As per HPI. [facility] Past Medical History Medical History (Updated 03/05/22 @ 16:39 by Nash Mejias MD) Diabetes mellitus End stage renal disease End-stage renal disease (ESRD) History of amputation of both great toes Hypertension Stasis edema Surgical History Madeline
[2022-03-04] MEDS: oxyCODONE/ACETAMINOPHEN (*CRX) 5-325 MG TABLET 1 TABLET PO ×2 (15:41→23:30)
[2022-03-04] MEDS: oxyCODONE HCL (*CRX) 2.5 MG TAB IR PO ×2 (15:43→23:29)
[2022-03-04] MEDS: APIXABAN 2.5 MG TABLET PO (16:36)
[2022-03-04] MEDS: INSULIN ASPART (*BKC) 100 UNITS/ML SUB-Q (16:41)
[2022-03-04 16:47] LABS: Glucose Point of Care 240 mg/dl (65-105)
[2022-03-04 20:57] LABS: Glucose Point of Care 287 mg/dl (65-105)
[2022-03-04] MEDS: INSULIN GLARGINE (*BKC) 100 UNITS/ML 30 UNITS SUB-Q (22:02)
[2022-03-04 22:26] VITALS: BP 113/60; PULSE 72; RESP 20; TEMP 36.5; O2SAT 99
[2022-03-05] VITALS (16 sets, daily range): BP systolic 93–146; BP diastolic 40–86; PULSE 64–86; RESP 16–21; TEMP 36–37.4; O2SAT 98–100
[2022-03-05 05:33] LABS: Hematocrit 27.4 % (37.0-47.0); Hemoglobin 8.5 g/dL (12.0-15.0); Mean Corpuscular Hemoglobin 29.8 pg (26-34); Mean Corpuscular Volume 96.1 fl (80-100); Platelet Count Result 225 k/mm3 (150-375); Red Blood Count 2.85 M/mm3 (4.2-5.4); Red Cell Distribution Width 16.1 % (11.5-14.5)
[2022-03-05 05:51] LABS: Albumin Level 3.6 g/dL (3.5-5.1); Anion Gap 14 mmol/L (8-16); Blood Urea Nitrogen 62 mg/dL (7-17); Calcium 7.8 mg/dL (8.4-10.2); Carbon Dioxide 26 mmol/L (22-30); Chloride 94 mmol/L (98-107); Estimated CRCL calculation 7 ml/min; Estimated Glomerular Filt Rate 5; Glucose 184 mg/dL (65-110); Magnesium 1.8 mg/dL (1.6-2.3); Potassium 3.9 mmol/L (3.4-5.0); Sodium 134 mmol/L (137-145)
[2022-03-05 06:22] LABS: Hepatitis B Surface Antigen Negative (Negative)
[2022-03-05 07:47] LABS: Hepatitis B Surface Anti Res Indeterminate
[2022-03-05 08:29] LABS: Glucose Point of Care 173 mg/dl (65-105)
[2022-03-05] MEDS: APIXABAN 2.5 MG TABLET PO ×2 (09:42→16:53)
[2022-03-05] MEDS: GABAPENTIN 300 MG CAPSULE PO ×3 (09:42→16:53)
[2022-03-05] MEDS: AMIODARONE HCL 200 MG TABLET PO (09:42)
[2022-03-05] MEDS: cefTRIAXone 2 GM in SODIUM CHLORIDE 0.9% IV 100 ML 200 ML IVPB (09:43)
--- NOTE | 2022-03-05 09:48 | PM.IMPN ---
Progress Note: A&P Assessment and Plan (1) Cellulitis and abscess of right leg: Code(s): L03.115 - Cellulitis of right lower limb; L02.415 - Cutaneous abscess of right lower limb Status: Acute Assessment and Plan: 03/05/2022 interval history: Patient is 61-year-old female with history of end-stage renal disease on hemodialysis, on 03/03 patient stated after her dialysis she did not feel well tired and fatigue and her caregiver told her she has a fever and her right lower extremity has cellulitis, patient was transferred from [facility], upon arrival on 03/04 started the patient on ceftriaxone, ordered the blood culture, no growth so far, patient denies any abdominal pain nausea or vomiting, no chest pain, cough or shortness of breath, Today patient is sitting in the chair, eating her breakfast, denies any fever or chills, patient is scheduled for hemodialysis today will continue to monitor. (2) End stage renal disease: Code(s): N18.6 - End stage renal disease Status: Acute Assessment and Plan: patient will be seen by soil sampler and will have scheduled dialysis (3) Atrial fibrillation: Code(s): I48.91 - Unspecified atrial fibrillation Status: Acute Assessment and Plan: on amiodarone rate is controlled anticoagulated with Eliquis (4) Hypertension: Code(s): I10 - Essential (primary) hypertension Status: Chronic Assessment and Plan: will monitor Subjective Date/time seen: 03/05/22 09:48 03/05/2022 interval history: Patient is 61-year-old female with history of end-stage renal disease on hemodialysis, on 03/03 patient stated after her dialysis she did not feel well tired and fatigue and her caregiver told her she has a fever and her right lower extremity has cellulitis, patient was transferred from [facility], upon arrival on 03/04 started the patient on ceftriaxone, ordered the blood culture, no growth so far, patient denies any abdominal pain nausea or vomiting, no chest pain, cough or shortness of breath, Today patient is sitting in the chair, eating her breakfast, denies any fever or chills, patient is scheduled for hemodialysis today will continue to monitor. Review of Systems Review of Systems: All systems reviewed & are unremarkable except as noted in HPI and below Exam Narrative: Morbidly obese Patient is comfortable, NAD HEENT: eyes are clear and none icteric LUNGS:CTA HEART: RR S1S2 ABD: BS+, Soft and nontender Lower extremities: left lower extremity AKA with the stump, right lower extremity hyperemic with scabs there is no open drainage. SKIN: nonjaundiced Neuro: grossly intact. Objective Data Vital Signs Vital Signs: Vital Signs - 24 hr 03/04/22 09:50 03/04/22 11:59 03/04/22 14:00 Temperature 97.9 F 98.2 F Pulse Rate 71 82 Respiratory Rate 18 18 Blood Pressure 146/61 H 127/52 L Pulse Oximetry 100 96 Oxygen Delivery Room Air 03/04/22 22:26 03/05/22 06:00 03/04/22 10:13 Temperature 97.7 F 97.0 F L 97.9 F Pulse Rate 72 72 71 Respiratory Rate 20 21 H 18 Blood Pressure 113/60 132/75 146/61 H Pulse Oximetry 99 100 100 Oxygen Delivery Intake/Output Intake/Output: Intake & Output 03/02/22 03/03/22 03/04/22 03/05/22 23:59 23:59 23:59 23:59 Intake Total 600 Output Total 200 200 Balance 400 -200 Meds/Results Medications: Active Medications Generic Name Dose Route Start Last Admin Trade Name Freq PRN Reason Stop Dose Admin Amiodarone HCl 200 mg 03/05/22 09:00 Amiodarone Hcl 200 Mg Tablet PO DAILY DEBRA Apixaban 2.5 mg 03/04/22 17:00 03/04/22 16:36 Apixaban 2.5 Mg Tablet PO 2.5 mg BID DEBRA Administration Dextrose 12.5 gm 03/04/22 12:29 Dextrose 50% 25 Gm/50 Ml Syringe IV PUSH PRN PRN Hypoglycemia Protocol Epoetin Gurwinder-epbx 10,000 units 03/05/22 17:00 Epoetin Gurwinder-Epbx 10,000 Units/Ml Vial IV PUSH
[2022-03-05 11:58] LABS: RSV RNA, RT-PCR Negative (Negative); SARS-CoV-2 RNA PCR Negative
[2022-03-05 12:02] LABS: Glucose Point of Care 221 mg/dl (65-105)
[2022-03-05 12:24] LABS: Influenza A QL RT-PCR Negative (Negative); Influenza B QL RT-PCR Negative (Negative)
[2022-03-05] MEDS: INSULIN ASPART (*BKC) 100 UNITS/ML SUB-Q (12:35)
--- NOTE | 2022-03-05 13:50 | PM.PNNEP ---
Progress Note: A&P Assessment and Plan (1) End stage renal disease: Code(s): N18.6 - End stage renal disease Status: Chronic Assessment and Plan: HD today and continue M/W/F schedule follow electrolytes, volume status, and clearance (2) Cellulitis of right lower extremity: Code(s): L03.115 - Cellulitis of right lower limb Status: Acute Assessment and Plan: suspected based on physical exam as well as fever follow culture data empiric antibiotics follow clinical exam (3) Anemia: Code(s): D64.9 - Anemia, unspecified Status: Chronic Assessment and Plan: due to ESRD and possible acute illness Epogen with HD follow trend of H/H (4) Hypertension: Code(s): I10 - Essential (primary) hypertension Status: Chronic Assessment and Plan: reasonable control at this time continue home medications follow trend of hemodynamics (5) Diabetes mellitus: Code(s): E11.9 - Type 2 diabetes mellitus without complications Status: Chronic Assessment and Plan: follow accuchecks glycemic control Will continue to follow. Subjective Date/time seen: 03/05/22 13:50 Tolerating dialyiss treatment at the time of my visit (seen on HD at ~ 1:40PM); no apparent distress voiced at the time of my visit; no issues/events overnight or earlier this morning. Exam Narrative: General: WD/WN female in NAD Heart: normal S1 and S2; no rub Lungs: clear anteriorly, decreased at bases Abdomen: soft, nontender, nondistended, positive bowel sounds Extremities: no cyanosis or clubbing; trace edema (RLE) Skin: erythema present on RLE Objective Data Vital Signs Vital Signs: Vital Signs Temp Pulse Resp BP Pulse Ox O2 Del Method 03/05/22 13:10 98.2 F 70 16 146/71 H 03/05/22 13:50 68 119/77 03/05/22 13:24 71 120/58 L 03/05/22 09:40 Room Air 03/05/22 09:42 64 03/05/22 06:00 97.0 F L 72 21 H 132/75 100 03/04/22 22:26 97.7 F 72 20 113/60 99 Intake/Output Intake/Output: Intake & Output 01/08/23 01/09/23 01/10/23 01/11/23 23:59 23:59 23:59 23:59 Intake Total 700 240 Output Total 200 200 Balance 500 40 Meds/Results Medications: Active Medications Generic Name Dose Route Start Last Admin Trade Name Sosa PRN Reason Stop Dose Admin Amiodarone HCl 200 mg 03/05/22 09:00 03/05/22 09:42 Amiodarone Hcl 200 Mg Tablet PO 200 mg DAILY DEBRA Administration Apixaban 2.5 mg 03/04/22 17:00 03/05/22 09:42 Apixaban 2.5 Mg Tablet PO 2.5 mg BID DEBRA Administration Dextrose 12.5 gm 03/04/22 12:29 Dextrose 50% 25 Gm/50 Ml Syringe IV PUSH PRN PRN Hypoglycemia Protocol Epoetin Gurwinder-epbx 10,000 units 03/05/22 17:00 03/05/22 14:45 Epoetin Gurwinder-Epbx 10,000 Units/Ml Vial IV PUSH 03/05/22 17:01 10,000 units ONCE ONE Administration Gabapentin 300 mg 03/04/22 13:00 03/05/22 12:36 Gabapentin 300 Mg Capsule PO 300 mg TID DEBRA Administration Glucagon 1 mg 03/04/22 12:29 Glucagon For Inj 1 Mg Vial IM PRN PRN Hypoglycemia Protocol Glucose 15 gm 03/04/22 12:29 Glucose Oral Gel 15 Gm Of Glucse In 37.5 Gm Tube PO PRN PRN Hypoglycemia Protocol Ceftriaxone Sodium 2 gm/ 100 mls @ 200 mls/hr 03/04/22 09:50 03/05/22 09:43 Sodium Chloride IVPB 200 mls/hr Q24H DEBRA Administration Dextrose 1,000 mls @ 100 mls/hr 03/04/22 12:29 Dextrose 5% 1,000 Ml IVPB PRN PRN Hypoglycemia Protocol Albumin Human 50 mls @ 999 mls/hr 03/05/22 07:15 Albutein IVPB 04/04/22 07:14 Q10M PRN HYPOTENSION Insulin Aspart 2 - 5 units 03/04/22 17:00 03/05/22 12:35 Insulin Aspart (*Bkc) 100 Units/Ml SUB-Q 2 units TIDWM DEBRA Administration Protocol Insulin Glargine 30 units 03/04/22 21:00 03/04/22 22:02 Insulin Glargine (*Bkc) 100 Units/Ml SUB-Q 30
[2022-03-05] MEDS: SODIUM CHLORIDE 0.9% IV 1,000 ML 999 ML IV CONT (14:45)
[2022-03-05] MEDS: EPOETIN ALFA-EPBX 10,000 UNITS/ML VIAL 10000 UNITS IV PUSH (14:45)
[2022-03-05] MEDS: oxyCODONE HCL (*CRX) 2.5 MG TAB IR PO (16:55)
[2022-03-05] MEDS: oxyCODONE/ACETAMINOPHEN (*CRX) 5-325 MG TABLET 1 TABLET PO (16:57)
[2022-03-05 17:04] LABS: Glucose Point of Care 164 mg/dl (65-105)
[2022-03-05] MEDS: INSULIN GLARGINE (*BKC) 100 UNITS/ML 30 UNITS SUB-Q (19:54)
[2022-03-05 21:12] LABS: Glucose Point of Care 258 mg/dl (65-105)
[2022-03-06] MEDS: oxyCODONE/ACETAMINOPHEN (*CRX) 5-325 MG TABLET 1 TABLET PO ×2 (00:22→12:40)
[2022-03-06] MEDS: oxyCODONE HCL (*CRX) 2.5 MG TAB IR PO ×2 (00:23→12:40)
[2022-03-06 03:36] VITALS: BP 134/46; PULSE 70; RESP 16; TEMP 36.6; O2SAT 98
[2022-03-06 05:39] LABS: Hematocrit 26.4 % (37.0-47.0); Hemoglobin 8.2 g/dL (12.0-15.0); Mean Corpuscular HGB Conc 31.1 g/dl (32-36); Mean Corpuscular Hemoglobin 29.9 pg (26-34); Mean Corpuscular Volume 96.4 fl (80-100); Mean Platelet Volume 9.3 fl (7.4-10.4); Platelet Count Result 208 k/mm3 (150-375); Red Blood Count 2.74 M/mm3 (4.2-5.4); Red Cell Distribution Width 16.1 % (11.5-14.5); White Blood Count 7.6 K/mm3 (4.5-10.0)
[2022-03-06 05:59] LABS: Albumin Level 3.6 g/dL (3.5-5.1); Anion Gap 8 mmol/L (8-16); Blood Urea Nitrogen 34 mg/dL (7-17); Calcium 7.8 mg/dL (8.4-10.2); Carbon Dioxide 31 mmol/L (22-30); Chloride 94 mmol/L (98-107); Estimated CRCL calculation 9 ml/min; Estimated Glomerular Filt Rate 7; Glucose 137 mg/dL (65-110); Magnesium 1.8 mg/dL (1.6-2.3); Phosphorus 4.8 mg/dL (2.5-4.5); Potassium 3.6 mmol/L (3.4-5.0); Sodium 133 mmol/L (137-145)
[2022-03-06 08:34] LABS: Glucose Point of Care 135 mg/dl (65-105)
[2022-03-06 09:09] VITALS: PULSE 84
[2022-03-06] MEDS: AMIODARONE HCL 200 MG TABLET PO (09:09)
[2022-03-06] MEDS: APIXABAN 2.5 MG TABLET PO (09:09)
[2022-03-06] MEDS: cefTRIAXone 2 GM in SODIUM CHLORIDE 0.9% IV 100 ML 200 ML IVPB (09:10)
[2022-03-06] MEDS: GABAPENTIN 300 MG CAPSULE PO ×2 (09:10→12:42)
--- NOTE | 2022-03-06 10:21 | PM.DS ---
DS: Admitting Diagnosis Discharge Date 03/06/2022 Admitting Diagnosis Fever right lower extremities cellulitis DS: Discharge Diagnosis Discharge Diagnosis (1) Cellulitis and abscess of right leg: Code(s): L03.115 - Cellulitis of right lower limb; L02.415 - Cutaneous abscess of right lower limb Status: Acute Assessment and Plan: 03/05/2022 interval history: Patient is 61-year-old female with history of end-stage renal disease on hemodialysis, on 03/03 patient stated after her dialysis she did not feel well tired and fatigue and her caregiver told her she has a fever and her right lower extremity has cellulitis, patient was transferred from [facility], upon arrival on 03/04 started the patient on ceftriaxone, ordered the blood culture, no growth so far, patient denies any abdominal pain nausea or vomiting, no chest pain, cough or shortness of breath, Today patient is sitting in the chair, eating her breakfast, denies any fever or chills, patient is scheduled for hemodialysis today will continue to monitor. (2) End stage renal disease: Code(s): N18.6 - End stage renal disease Status: Chronic Assessment and Plan: patient will be seen by office helper clerical and will have scheduled dialysis (3) Atrial fibrillation: Code(s): I48.91 - Unspecified atrial fibrillation Status: Chronic Assessment and Plan: on amiodarone rate is controlled anticoagulated with Eliquis (4) Hypertension: Code(s): I10 - Essential (primary) hypertension Status: Chronic Assessment and Plan: will monitor DS: Summary Hospital Course Reason for hospitalization: Fever right lower extremities cellulitis Narrative: Patient is 61-year-old female with history of end-stage renal disease on hemodialysis, patient states after her dialysis yesterday see did not feel well tired and fatigue and her caregiver told her she has a fever and her right lower extremity has cellulitis,? started the patient on ceftriaxone, ordered? the blood culture, patient denies any abdominal pain nausea or vomiting, no? chest pain, cough or shortness of breath,? patient states see has not eaten much since yesterday and is very hungry right now, will consult office helper clerical per patient's schedule dialysis. Hospital Course: ?Patient is 61-year-old female with history of end-stage renal disease on hemodialysis, on 03/03 patient stated after her dialysis? she did not feel well tired and fatigue and her caregiver told her she has a fever and her right lower extremity has cellulitis,? patient was transferred from [facility], upon arrival on 03/04 started the patient on ceftriaxone, ordered? the blood culture, no growth so far, patient denies any abdominal pain nausea or vomiting, no? chest pain, cough or shortness of breath,? Today patient is sitting in the? chair, eating her breakfast,? denies any fever or chills, patient is scheduled for hemodialysis today will continue to monitor. will discharge patient today patient will have outpatient dialysis on MWF and will follow-up with her office helper clerical Time Spent with Patient Time attestation: Total time spent providing and/or coordinating discharge services: Exam Narrative: Morbidly obese Patient is comfortable, NAD HEENT: eyes are clear and none icteric LUNGS:CTA HEART: RR S1S2 ABD: BS+, Soft and nontender Lower extremities: left lower extremity AKA with the stump, right lower extremity hyperemic with scabs there is no open drainage. SKIN: nonjaundiced Neuro: grossly intact. DS: Data Data Completed and Pending Labs on day of discharge: Labs from last 24 hours 03/06/22 03/06/22 03/06/22 08:28 05:26 05:26 WBC 7.6 RBC 2.74 L Hgb 8.2 L Hct 26.4 L MCV 96.4 MCH 29.9 MCHC 31.1 L RDW 16.1 H Plt Count 208 MPV 9.3 Sodium 133 L Potassium 3.6 Chloride 94 L Carbon Dioxide 31 H Anion Gap 8 BUN 34
[2022-03-06 12:05] LABS: Glucose Point of Care 196 mg/dl (65-105)
[2022-03-09 19:30] LABS: Hepatitis B Core Ab Total Nonreactive (Nonreactive)
== END 2022-03-06 15:51 | disposition home health service (06) | DRG 602 ==
PROVIDERS: Internal Medicine; Internal Medicine Nephrology; Admitting Provider Family Medicine; PCP Family Medicine; Visit Provider Family Medicine
DX: L03.115 Cellulitis of right lower limb (principal); N18.6 End stage renal disease; I12.0 Hypertensive chronic kidney disease with stage 5 chronic kidney disease or end stage renal disease; E11.22 Type 2 diabetes mellitus with diabetic chronic kidney disease; D63.1 Anemia in chronic kidney disease; L02.415 Cutaneous abscess of right lower limb; Z20.822 Contact with and (suspected) exposure to COVID-19; I48.91 Unspecified atrial fibrillation; Z99.2 Dependence on renal dialysis; Z89.412 Acquired absence of left great toe; Z89.411 Acquired absence of right great toe; Z89.512 Acquired absence of left leg below knee; Z79.4 Long term (current) use of insulin; E66.01 Morbid (severe) obesity due to excess calories; Z68.37 Body mass index [BMI] 37.0-37.9, adult
CPT/HCPCS: 36415; 80069; 82948; 83735; 85027; 86704; 86706; 86710; 87040; 87081; 87340; 87502; 87634; 97161; 97165; A9270; G0257; J0696; J1644; J1815; J7030; Q5105; U0003; U0005

== ENCOUNTER 2022-03-09 18:07 | Emergency (ER) | payer BC, MEDICAID, SELFPAY ==
--- NOTE | ~2022-03-09 | XR_ITS ---
EXAMINATION: XR knee LT 3V DATE: 03/09/2022 18:46 INDICATION: Pain and wound at the anterior knee post fall 2 days prior. TECHNIQUE: Anteroposterior, 2 oblique and crosstable lateral views of the right knee were obtained COMPARISON: None. FINDINGS: Status post left uiddn-njb-qcmy amputation with smooth corticated tibial and fibular osteotomy margin s. No fracture. Joint spaces appear normal on nonweightbearing imaging. Small left knee joint effusio n without layering lipohemarthrosis. There is some soft tissue swelling with suggestion of some skin thickening and subcutaneous edema at the anterior and distal margins of the stump. No soft tissue gas . IMPRESSION: 1. Expected osseous appearance of a left rccly-fcx-yrsw amputation with no acute osseous abnormality. 2. Nonspecific soft tissue swelling and subcutaneous edema about the stump and small left knee joint effusion. Reviewed, dictated and finalized at location A. TION SPECIALIST IMPRESSION: 1. Expected osseous appearance of a left mtvys-dge-bfbn amputation with no acut e osseous abnormality. 2. Nonspecific soft tissue swelling and subcutaneous edema about the stump and small left knee joint effusion.
[2022-03-09 18:17] VITALS: BP 104/45; PULSE 74; RESP 22; O2SAT 100
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
[2022-03-09] MEDS: HYDROcodone/acetaminophen (*CRX) 5-325 MG TABLET 1 TAB PO (18:49)
[2022-03-10 01:47] VITALS: BP 125/53; PULSE 76; RESP 16; O2SAT 98
== END 2022-03-10 02:00 | disposition home or self-care (01) ==
PROVIDERS: Emergency Provider Physician Assistant; PCP Family Medicine
DX: S89.92XA Unspecified injury of left lower leg, initial encounter (principal); E11.22 Type 2 diabetes mellitus with diabetic chronic kidney disease; I12.0 Hypertensive chronic kidney disease with stage 5 chronic kidney disease or end stage renal disease; N18.6 End stage renal disease; Z99.2 Dependence on renal dialysis; Z89.512 Acquired absence of left leg below knee; Z98.49 Cataract extraction status, unspecified eye; Z79.01 Long term (current) use of anticoagulants; Z79.4 Long term (current) use of insulin; W05.0XXA Fall from non-moving wheelchair, initial encounter
CPT/HCPCS: 73562; 99283; A9270

== ENCOUNTER 2022-03-12 20:10 | Observation (INO) | payer BC, MEDICAID, SELFPAY ==
--- NOTE | ~2022-03-12 | XR_ITS ---
EXAMINATION: XR chest 2V DATE: 03/12/2022 21:05 INDICATION: Weakness. End-stage renal disease. TECHNIQUE: Frontal and lateral views of the chest were obtained. COMPARISON: Chest single view 02/14/2022 FINDINGS: Again seen is mild elevation of right hemidiaphragm. There is mild atelectasis at right emily g base. No pleural effusion or pneumothorax. The heart size is normal. A left internal jugular centra l venous catheter is seen with tip in the right atrium. There is a left subclavian port with tip at t he superior cavoatrial junction. There is chronic anterior wedging of T12 vertebral body. IMPRESSION: 1. Mild atelectasis at right lung base. Reviewed, dictated and finalized at location A. VISION CAMERAMAN
[2022-03-12 20:21] VITALS: PULSE 63; RESP 16; TEMP 37.1; O2SAT 100
[2022-03-12 20:24] VITALS: PULSE 72
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
--- NOTE | 2022-03-12 20:47 | ECG_ITS ---
Measurements Intervals [place] Rate: 62 P: 37 MN: 180 QRS: -48 QRSD: 123 T: 67 QT: 459 QTc: 470 Interpretive Statements SINUS RHYTHM LEFT ANTERIOR FASCICULAR BLOCK BORDERLINE ST-T WAVE ABNORMALITY- HIGH LATERAL LEADS ABNORMAL ECG COMPARED TO ECG 05/23/2021 12:56:25 NO SIGNIFICANT CHANGES Electronically Signed On 03-13-2022 7:45:03 PERSONAL LINES INSURANCE AGENT by Dmitri Santos D.O.
[2022-03-12 21:54] VITALS: BP 126/68; PULSE 64; O2SAT 97
[2022-03-12 22:00] VITALS: PULSE 64
[2022-03-12 22:35] LABS: Basophils Percent Auto 0.4 % (0.2-1.2); Eosinophils Absolute Auto 0.1 K/mm3 (0-0.3); Eosinophils Percent Auto 1.1 % (0-4.4); Hematocrit 24.8 % (37.0-47.0); Hemoglobin 7.6 g/dL (12.0-15.0); Immature Granulocyte Absolute 0.04 K/mm3 (0.00-0.031); Immature Granulocyte Percent A 0.5 % (0-0.5); Lymphocytes Absolute Auto 0.98 K/mm3 (0.9-3.2); Mean Corpuscular HGB Conc 30.6 g/dl (32-36); Mean Platelet Volume 9.5 fl (7.4-10.4); Monocytes Absolute Auto 0.7 K/mm3 (0.1-0.6); Monocytes Percent Auto 8.1 % (2.6-8.5); Neutrophils Absolute Auto 6.4 K/mm3 (1.3-6.7); Neutrophils Percent Auto 77.9 % (45.5-73.1); Platelet Count Result 255 k/mm3 (150-375); Red Blood Count 2.53 M/mm3 (4.2-5.4); Red Cell Distribution Width 15.9 % (11.5-14.5); White Blood Count 8.2 K/mm3 (4.5-10.0)
[2022-03-12 22:46] LABS: INR 1.4; Prothrombin Time 16.3 Seconds (11.1-14.7)
[2022-03-12 22:48] LABS: Alanine Aminotransferase 12 U/L (6-35); Albumin Level 3.7 g/dL (3.5-5.1); Alkaline Phosphatase 110 U/L (38-126); Anion Gap 15 mmol/L (8-16); Aspartate Amino Transferase 14 U/L (14-36); Bilirubin,Total 0.3 mg/dL (0.2-1.3); Blood Urea Nitrogen 71 mg/dL (7-17); Calcium 7.7 mg/dL (8.4-10.2); Carbon Dioxide 26 mmol/L (22-30); Chloride 96 mmol/L (98-107); Estimated Glomerular Filt Rate 3; Glucose 178 mg/dL (65-110); Partial Thromboplastin Time 46.8 SECONDS (22.3-36.8); Potassium 4.8 mmol/L (3.4-5.0); Sodium 137 mmol/L (137-145)
[2022-03-12 22:50] LABS: Influenza A QL RT-PCR Negative (Negative); Influenza B QL RT-PCR Negative (Negative); SARS-CoV-2 RNA PCR Negative
[2022-03-12 23:10] LABS: Troponin I < 0.012 ng/mL (0.000-0.034)
[2022-03-13] VITALS (25 sets, daily range): BP systolic 113–160; BP diastolic 40–73; PULSE 63–90; RESP 12–21; TEMP 35.4–37.1; O2SAT 95–100; BMI 38.4
--- NOTE | 2022-03-13 03:29 | ADMGEN ---
This patient, Cristiana Ladd, was admitted to Medical Room 257-01. Patient/family oriented to hospital policies and general routines including ID bracelet, bed and alarms, visiting hours, pain management, procedures, bathroom and other care routines, personal items, smoking policy, room service/diet, and visiting hours. Information on how to activate the Rapid Response Team has been discussed. Patient/Family are encouraged to report perceived risks to care and to ask questions if they do not understand what they are told or what they should do.
[2022-03-13] MEDS: CENTRAL LINE FLUSH 10 ML IV PUSH ×3 (06:50→21:00)
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
[2022-03-13 08:20] LABS: Hemoglobin 7.5 g/dL (12.0-15.0); Mean Corpuscular HGB Conc 28.8 g/dl (32-36); Mean Platelet Volume 9.5 fl (7.4-10.4); Platelet Count Result 229 k/mm3 (150-375); Red Cell Distribution Width 15.9 % (11.5-14.5)
[2022-03-13 08:46] LABS: Glucose Point of Care 122 mg/dl (65-105)
[2022-03-13] MEDS: busPIRone HCL 10 MG TABLET PO ×3 (10:07→20:58)
[2022-03-13] MEDS: GABAPENTIN 300 MG CAPSULE PO ×3 (10:07→18:29)
[2022-03-13] MEDS: oxyCODONE HCL (*CRX) 2.5 MG TAB IR PO ×3 (10:08→21:00)
[2022-03-13] MEDS: EUCERIN CREAM 120 GM JAR 1 APPLIC TOPICAL (10:08)
[2022-03-13] MEDS: oxyCODONE/ACETAMINOPHEN (*CRX) 5-325 MG TABLET 1 TABLET PO ×3 (10:08→21:00)
[2022-03-13 11:04] LABS: Anion Gap 19 mmol/L (8-16); Blood Urea Nitrogen 78 mg/dL (7-17); Calcium 8.1 mg/dL (8.4-10.2); Carbon Dioxide 19 mmol/L (22-30); Chloride 102 mmol/L (98-107); Estimated CRCL calculation 5 ml/min; Estimated Glomerular Filt Rate 3; Glucose 139 mg/dL (65-110); Potassium 4.9 mmol/L (3.4-5.0); Sodium 140 mmol/L (137-145)
[2022-03-13 12:09] LABS: Glucose Point of Care 148 mg/dl (65-105)
[2022-03-13] MEDS: AMIODARONE HCL 200 MG TABLET PO (13:37)
--- NOTE | 2022-03-13 14:46 | PM.CNNEP ---
Assessment and Plan Assessment and plan (1) End stage renal disease: Code(s): N18.6 - End stage renal disease Status: Chronic Assessment and Plan: HD today and HD tomorrow to resume/continue M/W/F schedule follow electrolytes, volume status, and clearance (2) Generalized weakness: Code(s): R53.1 - Weakness Status: Acute Assessment and Plan: following recent fall PT/OT may need temporary placement (3) Anemia: Code(s): D64.9 - Anemia, unspecified Status: Chronic Assessment and Plan: due to ESRD and recent hospitalization/infection Epogen with HD follow trend of H/H (4) Hypertension: Code(s): I10 - Essential (primary) hypertension Status: Chronic Assessment and Plan: reasonable control at this time continue home medications follow trend of hemodynamics (5) Diabetes mellitus: Code(s): E11.9 - Type 2 diabetes mellitus without complications Status: Chronic Assessment and Plan: follow accuchecks glycemic control Will continue to follow. History of Present Illness Reason for Consult Consult date: 03/13/22 Reason for consult: end stage renal disease Chief Complaint Chief complaint: Generalized weakness,inability to trf,ESRD on dial History of Present Illness Narrative: The patient is a 61-year-old female with a past medical history is outlined below who presented to [facility] Emergency room for further evaluation of weakness. The patient reports that about a couple of weeks ago she sustained a fall and landed on her knees when she had the ground. She did not have any fractures after being evaluated at outside emergency room and she was subsequently discharged with but since that time, she has had ongoing pain /shortness. Apparently, because of this injury/pain, she did not go to her dialysis treatment earlier this week on both Thursday and apparently transportation was an issue on Thursday and so her last dialysis treatment was last Thursday (on 03/07/22). due the a for mention weakness and knee pain, she presented to the ER for further assessment Workup and evaluation in the emergency room demonstrated the patient be hemodynamically stable and routine blood test demonstrated labs consistent with her known history of end-stage renal disease although she did not have any critical electrolyte abnormalities and her volume status appear to be relatively stable as well. She had no other subjective complaints with regard to chest pain, shortness of breath, nausea, vomiting, diarrhea, palpitations, dizziness, or lightheadedness. Initially, the plan was for discharge however on further assessment by the ER provider, it seemed clear the patient was unable to ambulate or bear any weight on her lower extremities and hence she was subsequently admitted to the hospital for further evaluation and therapy. Renal consultation was requested due to her end-stage renal disease. The patient is somewhat familiar to me as I take care of her outpatient dialysis needs. She normally dialyzes on a Thursday, Thursday, Thursday dialysis schedule at [facility] under my care. From a dialysis perspective, she is usually compliant with her dialysis treatments although sometimes transportation from home to dialysis can be problematic. Further complicating matter there are times where she has excessive fluid gains in between her dialysis treatments and they are unable to get her down to her dry weight. Dialysis access has also been an ongoing problem as she has been exhausted in terms of AV access placement and is currently dialysis catheter dependent. Currently, the time my visit, she does not appear to be in acute distress and is receiving dialysis (she was seen on HD at 2:30PM) Review of Systems Review of Systems: As per HPI. [facility] Past Medical History Medical History (Updated 03/13/22 @ 14:16 by Crys Cerrato
--- NOTE | 2022-03-13 15:07 | PCOTNOTE ---
Attempted to see pt. for occupational therapy evaluation. Pt. is away from room at this time for dialysis. Nursing aware. Following.
--- NOTE | 2022-03-13 15:35 | PC.NURSE ---
On 03/13/22, the student, [Desmond Cortes], provided care and completed [facility] documentation on this patient. I have reviewed the student's documentation and agree with the findings.
[2022-03-13] MEDS: EPOETIN ALFA-EPBX 20,000 UNITS/ML VIAL 20000 UNITS IV PUSH (17:10)
[2022-03-13] MEDS: ALTEPLASE 2 MG VIAL (CATHFLO) IV PUSH (17:11)
[2022-03-13] MEDS: SODIUM CHLORIDE 0.9% IV 1,000 ML 999 ML IV CONT (17:12)
[2022-03-13] MEDS: APIXABAN 2.5 MG TABLET PO (18:28)
[2022-03-13 18:38] LABS: Glucose Point of Care 97 mg/dl (65-105)
[2022-03-13] MEDS: INSULIN GLARGINE (*BKC) 100 UNITS/ML 30 UNITS SUB-Q (20:58)
[2022-03-14] VITALS (20 sets, daily range): BP systolic 76–144; BP diastolic 31–94; PULSE 63–93; RESP 16–20; TEMP 36–36.9; O2SAT 98–100
[2022-03-14] MEDS: oxyCODONE HCL (*CRX) 2.5 MG TAB IR PO (05:42)
[2022-03-14] MEDS: oxyCODONE/ACETAMINOPHEN (*CRX) 5-325 MG TABLET 1 TABLET PO (05:42)
[2022-03-14] MEDS: CENTRAL LINE FLUSH 10 ML IV PUSH ×2 (05:42→13:40)
[2022-03-14 06:13] LABS: Hematocrit 27.1 % (37.0-47.0); Mean Corpuscular HGB Conc 29.5 g/dl (32-36); Mean Corpuscular Hemoglobin 29.3 pg (26-34); Mean Corpuscular Volume 99.3 fl (80-100); Mean Platelet Volume 9.3 fl (7.4-10.4); Platelet Count Result 264 k/mm3 (150-375); Red Blood Count 2.73 M/mm3 (4.2-5.4); Red Cell Distribution Width 15.9 % (11.5-14.5); White Blood Count 6.9 K/mm3 (4.5-10.0)
[2022-03-14] MEDS: busPIRone HCL 10 MG TABLET PO ×3 (08:22→20:12)
[2022-03-14] MEDS: GABAPENTIN 300 MG CAPSULE PO ×3 (08:22→17:48)
[2022-03-14] MEDS: SODIUM CHLORIDE 0.9% IV 1,000 ML 999 ML IV CONT (09:27)
[2022-03-14] MEDS: EPOETIN ALFA-EPBX 10,000 UNITS/ML VIAL 10000 UNITS IV PUSH (09:27)
--- NOTE | 2022-03-14 09:56 | PCOTNOTE ---
Attempted to see pt. for occupational therapy evaluation. Pt. away from room at this time for dialysis. Nursing aware. Following.
[2022-03-14 10:14] LABS: Hemoglobin A1C 7.8 % (<5.7)
--- NOTE | 2022-03-14 12:00 | PM.PNNEP ---
Progress Note: A&P Assessment and Plan (1) End stage renal disease: Code(s): N18.6 - End stage renal disease Status: Chronic Assessment and Plan: HD today to resume/continue M/W/F schedule follow electrolytes, volume status, and clearance (2) Generalized weakness: Code(s): R53.1 - Weakness Status: Acute Assessment and Plan: following recent fall PT/OT may need temporary placement (3) Anemia: Code(s): D64.9 - Anemia, unspecified Status: Chronic Assessment and Plan: due to ESRD and recent hospitalization/infection Epogen with HD follow trend of H/H (4) Hypertension: Code(s): I10 - Essential (primary) hypertension Status: Chronic Assessment and Plan: reasonable control at this time continue home medications follow trend of hemodynamics (5) Diabetes mellitus: Code(s): E11.9 - Type 2 diabetes mellitus without complications Status: Chronic Assessment and Plan: follow accuchecks glycemic control Will continue to follow. Subjective Date/time seen: 03/14/22 12:00 Tolerating dialysis treatment at the time of my visit (seen on HD at 11:40AM); tolerated dialysis treatment yesterday as well; no issues or events overnight or earlier this AM; no apparent distress noted. Exam Narrative: General: WD/WN female in NAD Heart: normal S1 and S2; no rub Lungs: clear anteriorly, decreased at bases Abdomen: soft, nontender, nondistended, positive bowel sounds Extremities: no cyanosis or clubbing; trace edema (RLE) Skin: warm and dry Objective Data Vital Signs Vital Signs: Vital Signs Temp Pulse Resp BP Pulse Ox O2 Del Method 03/14/22 11:30 92 97/56 L 03/14/22 11:10 82 98/60 L 03/14/22 10:50 93 109/94 H 03/14/22 08:00 Room Air 03/14/22 10:30 79 101/31 L 03/14/22 10:10 74 98/37 L 03/14/22 09:50 74 107/62 03/14/22 09:30 70 108/48 L 03/14/22 08:30 98.0 F 82 16 124/71 03/14/22 09:10 65 100/46 L 03/14/22 08:50 63 144/70 H 03/14/22 08:38 66 133/65 03/14/22 06:00 98.5 F 66 20 130/51 L 99 03/13/22 20:00 74 20 98 Room Air 03/13/22 22:00 98.8 F 74 20 114/40 L 98 03/13/22 18:13 97.6 F 74 14 156/71 H 03/13/22 18:03 90 135/66 03/13/22 17:50 73 126/61 03/13/22 17:30 75 123/69 03/13/22 17:10 70 122/67 03/13/22 16:50 65 121/64 03/13/22 16:30 68 123/65 03/13/22 16:10 68 131/47 L 03/13/22 15:50 66 113/57 L 03/13/22 15:30 64 113/59 L 03/13/22 15:10 64 117/61 03/13/22 14:50 63 146/67 H 03/13/22 14:20 98.0 F 66 16 127/67 03/13/22 14:31 67 160/73 H 03/13/22 13:30 97.4 F L 65 14 125/54 L 97 Intake/Output Intake/Output: Intake & Output 03/11/22 03/12/22 03/13/22 03/14/22 23:59 23:59 23:59 23:59 Intake Total 764 550 Output Total 2500 Balance -1736 550 Meds/Results Medications: Active Medications Generic Name Dose Route Start Last Admin Trade Name Freq PRN Reason Stop Dose Admin Alteplase, Recombinant 2 mg 03/13/22 14:52 03/13/22 17:11 Alteplase 2 Mg Vial (Cathflo) IV PUSH 2 mg ONCE PRN Administration Line Occlusion Alteplase, Recombinant 2 mg 03/13/22 15:03 Alteplase 2 Mg Vial (Cathflo) IV PUSH ONCE PRN Line Occlusion Amiodarone HCl 200 mg 03/13/22 12:00 03/13/22 13:37 Amiodarone Hcl 200 Mg Tablet PO 200 mg Q24H DEBRA Administration Apixaban 2.5 mg 03/13/22 09:00 03/14/22 08:22 Apixaban 2.5 Mg Tablet PO Not Given BID DEBRA Buspirone HCl 10 mg 03/13/22 09:00 03/14/22 08:22 Buspirone Hcl 10 Mg Tablet PO 10 mg 0900,1300,2100 [facility] Administration Calcium Carbonate 200 mg 03/13/22 14:10 Calcium Carbonate (Tums) 500 Mg (200 Mg Elemental) PO Q6H PRN Indigestion Dextrose 12.5 gm 03/13/22 08:20 D
[2022-03-14] MEDS: SODIUM CHLORIDE 0.9% IV 500 ML 999 ML IV CONT (12:55)
[2022-03-14 13:11] LABS: Glucose Point of Care 119 mg/dl (65-105)
--- NOTE | 2022-03-14 13:24 | PCPTNOTE ---
Attempted PT evaluation. Pt became hypotensive during dialysis. Per RN, pt not medically appropriate to participate at this time and to check back later.
[2022-03-14] MEDS: AMIODARONE HCL 200 MG TABLET PO (13:39)
[2022-03-14] MEDS: EUCERIN CREAM 120 GM JAR 1 APPLIC TOPICAL (13:39)
--- NOTE | 2022-03-14 14:21 | P.PNIM_ITS ---
Progress Note: A&P Assessment and Plan (1) ESRD (end stage renal disease) on dialysis: Code(s): N18.6 - End stage renal disease; Z99.2 - Dependence on renal dialysis <Crys Cerrato PA-C - Last Filed: 03/15/22 14:14> Status: Acute <Crys Cerrato PA-C - Last Filed: 03/15/22 14:14> Assessment and Plan: Patient with end-stage renal disease that gets dialysis on Thursday * Nephrology consulted and appreciate recommendations * Patient with BUN and creatinine of 78 and 12.3 * Patient normally sees Dr. Mcintosh and Dr. Muñoz as an outpatient * Patient missed last 2 dialysis appointments * Patient undergoing dialysis today 03/13/2022 * Replenish electrolytes as needed 03/14/22 * I received a call from at 12:45 pm stating patient was not feeling well, lethargic and diaphoretic. Pt had just returned from dialysis and they had removed 3 L of fluids. Patient had blood pressure of 85/55 and I ordered 500mL bolus of normal saline. Pt blood sugar was 112. I got off phone with nurse and promptly saw patient. Patient was not tachycardic but was diaphoretic and pale. Patient was given some orange juice and fluids were running. I think contacted attending physician and he saw patient as well. Called [employer], Dr. Mejias, and relayed information to him. He recommended continuing fluid bolus and close monitoring of patient. * Patient home narcotics held * Blood pressure increased to 138/61 after bolus and patient feeling better. <Crys Cerrato PA-C - Last Filed: 03/15/22 14:14> (2) Diabetes mellitus: Code(s): E11.9 - Type 2 diabetes mellitus without complications <Crys Cerrato PA-C - Last Filed: 03/15/22 14:14> Status: Chronic <Crys Cerrato PA-C - Last Filed: 03/15/22 14:14> Assessment and Plan: * Start patient on Lantus 30 units, home dose * Initiate sliding scale * Hypoglycemic protocols with Accu-Cheks a.c. HS * Check hemoglobin A1c 03/14/22 * Decrease Lantus dose to 20 units due to patient having possible hypoglycemic symptoms with sugars in the 110's. * Will continue to monitor sugars. <Crys Cerrato PA-C - Last Filed: 03/15/22 14:14> (3) Atrial fibrillation: Code(s): I48.91 - Unspecified atrial fibrillation <Crys Cerrato PA-C - Last Filed: 03/15/22 14:14> Status: Chronic <Crys Cerrato PA-C - Last Filed: 03/15/22 14:14> Assessment and Plan: * Patient taking amiodarone for AFib -continue * Patient rate controlled * In sinus rhythm at the time of exam. <Crys Cerrato PA-C - Last Filed: 03/15/22 14:14> (4) Chronic wound of extremity: Status: Acute <Crys Cerrato PA-C - Last Filed: 03/15/22 14:14> Assessment and Plan: Patient has right toe wound/callus, right upper tucker wounds and left lateral knee wound/callus * Wound care consulted * Mineral oil cream to legs and feet 03/14/20 * Burn at index finger MCP anterior side. * Patient stated that she got this on 2021 while she was cooking. * Patient has neuropathy in her hands and has since stopped cooking. * Patient's caregiver has been addressing the wound. * I removed Band-Aid and ordered bacitracin to be applied to wound with nonstick gauze and gauze wrappings to be changed daily. <Crys Cerrato PA-C - Last Filed: 03/15/22 14:14> Assessment and Plan: Patient seen and examined independently. S: 61yo female with ESRD here for weakness. Asked to see this pateint due to HoTN. She had HD yesterday with 2.5L removed and again today with
--- NOTE | 2022-03-14 14:21 | PM.IMPN ---
Progress Note: A&P Assessment and Plan (1) ESRD (end stage renal disease) on dialysis: Code(s): N18.6 - End stage renal disease; Z99.2 - Dependence on renal dialysis <Crys Cerrato PA-C - Last Filed: 03/15/22 14:14> Status: Acute <Crys Cerrato PA-C - Last Filed: 03/15/22 14:14> Assessment and Plan: Patient with end-stage renal disease that gets dialysis on Thursday Nephrology consulted and appreciate recommendations Patient with BUN and creatinine of 78 and 12.[address] Mcintosh and Dr. Muñoz as an outpatient Patient missed last 2 dialysis appointments Patient undergoing dialysis today 03/13/2022 Replenish electrolytes as needed 03/14/22 I received a call from at 12:45 pm stating patient was not feeling well, lethargic and diaphoretic. Pt had just returned from dialysis and they had removed 3 L of fluids. Patient had blood pressure of 85/55 and I ordered 500mL bolus of normal saline. Pt blood sugar was 112. I got off phone with nurse and promptly saw patient. Patient was not tachycardic but was diaphoretic and pale. Patient was given some orange juice and fluids were running. I think contacted attending physician and he saw patient as well. Called [employer], Dr. Mejias, and relayed information to him. He recommended continuing fluid bolus and close monitoring of patient. Patient home narcotics held Blood pressure increased to 138/61 after bolus and patient feeling better. <Crys Cerrato PA-C - Last Filed: 03/15/22 14:14> (2) Diabetes mellitus: Code(s): E11.9 - Type 2 diabetes mellitus without complications <Crys Cerrato PA-C - Last Filed: 03/15/22 14:14> Status: Chronic <Crys Cerrato PA-C - Last Filed: 03/15/22 14:14> Assessment and Plan: Start patient on Lantus 30 units, home dose Initiate sliding scale Hypoglycemic protocols with Accu-Cheks a.c. HS Check hemoglobin A1c 03/14/22 Decrease Lantus dose to 20 units due to patient having possible hypoglycemic symptoms with sugars in the 110's. Will continue to monitor sugars. <Crys Cerrato PA-C - Last Filed: 03/15/22 14:14> (3) Atrial fibrillation: Code(s): I48.91 - Unspecified atrial fibrillation <Crys Cerrato PA-C - Last Filed: 03/15/22 14:14> Status: Chronic <Crys Cerrato PA-C - Last Filed: 03/15/22 14:14> Assessment and Plan: Patient taking amiodarone for AFib -continue Patient rate controlled In sinus rhythm at the time of exam. <Crys Cerrato PA-C - Last Filed: 03/15/22 14:14> (4) Chronic wound of extremity: Status: Acute <Crys Cerrato PA-C - Last Filed: 03/15/22 14:14> Assessment and Plan: Patient has right toe wound/callus, right upper tucker wounds and left lateral knee wound/callus Wound care consulted Mineral oil cream to legs and feet 03/14/20 Burn at index finger MCP anterior side. Patient stated that she got this on of 2021 while she was cooking. Patient has neuropathy in her hands and has since stopped cooking. Patient's caregiver has been addressing the wound. I removed Band-Aid and ordered bacitracin to be applied to wound with nonstick gauze and gauze wrappings to be changed daily. <Crys Cerrato PA-C - Last Filed: 03/15/22 14:14> Assessment and Plan: Patient seen and examined independently. S: 61yo female with ESRD here for weakness. Asked to see this pateint due to HoTN. She had HD yesterday with 2.5L removed and again today with 3L removed. SBP dropped to 80's after HD. She feels weak. no CP. O: Hypothermia. SBP 86.NARD surrounded with warm blankets. Lungs clear anteriorly. HD catheter in the left upper chest. RRR. Abd soft, NT. No right pedal edema. Left BKA. Right ty laceration with old blood noted around dressing. A&O x4. A/P: HoTN. Hypothermia. DM. ESRD. Agree with the ADAN's evaluation, as
[2022-03-14 15:50] LABS: Alanine Aminotransferase 13 U/L (6-35); Albumin Level 3.7 g/dL (3.5-5.1); Alkaline Phosphatase 110 U/L (38-126); Anion Gap 8 mmol/L (8-16); Aspartate Amino Transferase 20 U/L (14-36); Bilirubin,Total 0.6 mg/dL (0.2-1.3); Blood Urea Nitrogen 14 mg/dL (7-17); Calcium 8.4 mg/dL (8.4-10.2); Carbon Dioxide 31 mmol/L (22-30); Chloride 98 mmol/L (98-107); Estimated CRCL calculation 15 ml/min; Estimated Glomerular Filt Rate 11; Glucose 167 mg/dL (65-110); Magnesium 1.9 mg/dL (1.6-2.3); Sodium 137 mmol/L (137-145)
[2022-03-14] MEDS: APIXABAN 2.5 MG TABLET PO (17:48)
[2022-03-14 17:49] LABS: Glucose Point of Care 126 mg/dl (65-105)
[2022-03-14] MEDS: NEOMYCIN/POLYMYXIN/BACITRACIN OINTMENT 15 GM TUBE 1 APPLIC TOPICAL (17:49)
[2022-03-14] MEDS: INSULIN GLARGINE (*BKC) 100 UNITS/ML 20 UNITS SUB-Q (20:12)
[2022-03-14 20:19] LABS: Glucose Point of Care 289 mg/dl (65-105)
[2022-03-15] MEDS: CENTRAL LINE FLUSH 10 ML IV PUSH ×4 (00:01→21:18)
--- NOTE | 2022-03-15 00:33 | PC.NURSE ---
pt c/o nausea called Md Braun for zofran orders.
--- NOTE | 2022-03-15 00:39 | PC.NURSE ---
zofran orders received from DO Braun 4mg IV push q6hrs prn
[2022-03-15 05:23] LABS: Basophils Absolute Auto 0.1 K/mm3 (0.0-0.1); Basophils Percent Auto 0.6 % (0.2-1.2); Eosinophils Absolute Auto 0.1 K/mm3 (0-0.3); Eosinophils Percent Auto 0.9 % (0-4.4); Hemoglobin 8.5 g/dL (12.0-15.0); Immature Granulocyte Absolute 0.07 K/mm3 (0.00-0.031); Immature Granulocyte Percent A 0.9 % (0-0.5); Lymphocytes Percent Auto 15.5 % (18.3-44.2); Mean Corpuscular HGB Conc 30.4 g/dl (32-36); Mean Corpuscular Hemoglobin 29.6 pg (26-34); Mean Corpuscular Volume 97.6 fl (80-100); Mean Platelet Volume 9.2 fl (7.4-10.4); Monocytes Absolute Auto 0.8 K/mm3 (0.1-0.6); Monocytes Percent Auto 10.3 % (2.6-8.5); Neutrophils Absolute Auto 5.6 K/mm3 (1.3-6.7); Neutrophils Percent Auto 71.8 % (45.5-73.1); Platelet Count Result 243 k/mm3 (150-375); Red Blood Count 2.87 M/mm3 (4.2-5.4); Red Cell Distribution Width 15.5 % (11.5-14.5); White Blood Count 7.8 K/mm3 (4.5-10.0)
[2022-03-15 05:30] VITALS: BP 118/39; PULSE 65; RESP 16; TEMP 36.5; O2SAT 96
[2022-03-15 05:32] LABS: Alanine Aminotransferase 13 U/L (6-35); Albumin Level 3.9 g/dL (3.5-5.1); Alkaline Phosphatase 103 U/L (38-126); Anion Gap 8 mmol/L (8-16); Aspartate Amino Transferase 20 U/L (14-36); Bilirubin,Total 0.5 mg/dL (0.2-1.3); Blood Urea Nitrogen 23 mg/dL (7-17); Calcium 8.4 mg/dL (8.4-10.2); Carbon Dioxide 31 mmol/L (22-30); Chloride 95 mmol/L (98-107); Estimated CRCL calculation 11 ml/min; Estimated Glomerular Filt Rate 8; Glucose 179 mg/dL (65-110); Phosphorus 4.7 mg/dL (2.5-4.5); Potassium 3.9 mmol/L (3.4-5.0); Sodium 134 mmol/L (137-145)
[2022-03-15 07:49] LABS: Transferrin 117 mg/dL (206-381)
[2022-03-15 09:08] LABS: Glucose Point of Care 150 mg/dl (65-105)
[2022-03-15] MEDS: APIXABAN 2.5 MG TABLET PO ×2 (10:11→17:24)
[2022-03-15] MEDS: busPIRone HCL 10 MG TABLET PO ×3 (10:11→21:17)
[2022-03-15] MEDS: EUCERIN CREAM 120 GM JAR 1 APPLIC TOPICAL (10:12)
[2022-03-15] MEDS: GABAPENTIN 300 MG CAPSULE PO ×3 (10:12→21:17)
[2022-03-15] MEDS: NEOMYCIN/POLYMYXIN/BACITRACIN OINTMENT 15 GM TUBE 1 APPLIC TOPICAL (10:13)
[2022-03-15 11:18] LABS: Iron 57 ug/dL (37-170)
[2022-03-15 11:27] LABS: Percent Iron Saturation 31 % (20-50)
[2022-03-15 12:16] LABS: Glucose Point of Care 253 mg/dl (65-105)
[2022-03-15] MEDS: INSULIN ASPART (*BKC) 100 UNITS/ML SUB-Q (12:47)
[2022-03-15 12:50] VITALS: PULSE 74
[2022-03-15] MEDS: AMIODARONE HCL 200 MG TABLET PO (12:50)
--- NOTE | 2022-03-15 12:51 | PM.PNNEP ---
Progress Note: A&P Assessment and Plan (1) End stage renal disease: Code(s): N18.6 - End stage renal disease Status: Chronic Assessment and Plan: HD yesterday and continue M// schedule follow electrolytes, volume status, and clearance it would seem that she does not tolerated back - back dialysis treatments (2) Generalized weakness: Code(s): R53.1 - Weakness Status: Acute Assessment and Plan: following recent fall PT/OT may need temporary placement (3) Anemia: Code(s): D64.9 - Anemia, unspecified Status: Chronic Assessment and Plan: due to ESRD and recent hospitalization/infection Epogen with HD follow trend of H/H (4) Hypertension: Code(s): I10 - Essential (primary) hypertension Status: Chronic Assessment and Plan: reasonable control at this time continue home medications follow trend of hemodynamics (5) Diabetes mellitus: Code(s): E11.9 - Type 2 diabetes mellitus without complications Status: Chronic Assessment and Plan: follow accuchecks glycemic control Will continue to follow. Subjective Date/time seen: 03/15/22 12:51 Events noted later in the afternoon after dialysis with regard to hypotension, lightheadedness and diaphoresis; given IVF boluses as well as orange juice with improvement in symptoms; this afternoon, she feels back to baseline and in no apparent distress. Exam Narrative: General: WD/WN female in NAD Heart: normal S1 and S2; no rub Lungs: clear anteriorly, decreased at bases Abdomen: soft, nontender, nondistended, positive bowel sounds Extremities: no cyanosis or clubbing; trace edema (RLE) Skin: warm and intact Objective Data Vital Signs Vital Signs: Vital Signs Temp Pulse Resp BP Pulse Ox O2 Del Method 03/15/22 07:45 Room Air 03/15/22 12:50 74 03/15/22 11:09 Room Air 03/15/22 08:23 Room Air 03/15/22 05:30 97.7 F 65 16 118/39 L 96 03/14/22 20:50 98.4 F 86 16 118/75 98 03/14/22 20:00 100 Room Air Intake/Output Intake/Output: Intake & Output 03/12/22 03/13/22 03/14/22 03/15/22 23:59 23:59 23:59 23:59 Intake Total 764 1600 390 Output Total 2500 3000 Balance -1736 -1400 390 Meds/Results Medications: Active Medications Generic Name Dose Route Start Last Admin Trade Name Freq PRN Reason Stop Dose Admin Alteplase, Recombinant 2 mg 03/13/22 14:52 03/13/22 17:11 Alteplase 2 Mg Vial (Cathflo) IV PUSH 2 mg ONCE PRN Administration Line Occlusion Alteplase, Recombinant 2 mg 03/13/22 15:03 Alteplase 2 Mg Vial (Cathflo) IV PUSH ONCE PRN Line Occlusion Amiodarone HCl 200 mg 03/13/22 12:00 03/15/22 12:50 Amiodarone Hcl 200 Mg Tablet PO 200 mg Q24H DEBRA Administration Apixaban 2.5 mg 03/13/22 09:00 03/15/22 17:24 Apixaban 2.5 Mg Tablet PO 2.5 mg BID DEBRA Administration Buspirone HCl 10 mg 03/15/22 22:00 Buspirone Hcl 10 Mg Tablet PO Q8HR DEBRA Calcium Carbonate 200 mg 03/13/22 14:10 Calcium Carbonate (Tums) 500 Mg (200 Mg Elemental) PO Q6H PRN Indigestion Dextrose 12.5 gm 03/13/22 08:20 Dextrose 50% 25 Gm/50 Ml Syringe IV PUSH PRN PRN Hypoglycemia Protocol Gabapentin 300 mg 03/15/22 22:00 Gabapentin 300 Mg Capsule PO Q8HR DEBRA Glucagon 1 mg 03/13/22 08:20 Glucagon For Inj 1 Mg Vial IM PRN PRN Hypoglycemia Protocol Glucose 15 gm 03/13/22 08:20 Glucose Oral Gel 15 Gm Of Glucse In 37.5 Gm Tube PO PRN PRN Hypoglycemia Protocol Heparin Sodium (Beef Lung) 50 units 03/13/22 09:00 03/15/22 10:12 Heparin Flush 50 Units/5 Ml Syringe IV PUSH 50 units QAM DEBRA Administration Heparin Sodium (Beef Lung) 50 units 03/13/22 03:07 Heparin Flush 50 Units/5 Ml Syringe IV PUSH PRN PRN after intermittent infusion Hepar
[2022-03-15] MEDS: oxyCODONE/ACETAMINOPHEN (*CRX) 5-325 MG TABLET 1 TABLET PO ×2 (13:31→21:18)
[2022-03-15] MEDS: oxyCODONE HCL (*CRX) 2.5 MG TAB IR PO ×2 (13:31→21:17)
[2022-03-15 14:07] VITALS: BP 139/57; PULSE 75; RESP 18; TEMP 37; O2SAT 98
--- NOTE | 2022-03-15 14:14 | P.PNIM_ITS ---
Progress Note: A&P Assessment and Plan (1) ESRD (end stage renal disease) on dialysis: Code(s): N18.6 - End stage renal disease; Z99.2 - Dependence on renal dialysis Status: Acute Assessment and Plan: Patient with end-stage renal disease that gets dialysis on Thursday * Nephrology consulted and appreciate recommendations * Patient with BUN and creatinine of 78 and 12.3 * Patient normally sees Dr. Mcintosh and Dr. Muñoz as an outpatient * Patient missed last 2 dialysis appointments * Patient undergoing dialysis today 03/13/2022 * Replenish electrolytes as needed 03/14/22 * I received a call from at 12:45 pm stating patient was not feeling well, lethargic and diaphoretic. Pt had just returned from dialysis and they had removed 3 L of fluids. Patient had blood pressure of 85/55 and I ordered 500mL bolus of normal saline. Pt blood sugar was 112. I got off phone with nurse and promptly saw patient. Patient was not tachycardic but was diaphoretic and pale. Patient was given some orange juice and fluids were running. I think contacted attending physician and he saw patient as well. Called [employer], Dr. Mejias, and relayed information to him. He recommended continuing fluid bolus and close monitoring of patient. * Patient home narcotics held * Blood pressure increased to 138/61 after bolus and patient feeling better. 03/15/22 * Continue to monitor patient's blood pressure and blood sugars. * Plan to possibly discharge tomorrow if patient remains stable. * Next dialysis appointment scheduled for Thursday03/17/2022 (2) Diabetes mellitus: Code(s): E11.9 - Type 2 diabetes mellitus without complications Status: Chronic Assessment and Plan: * Start patient on Lantus 30 units, home dose * Initiate sliding scale * Hypoglycemic protocols with Accu-Cheks a.c. HS * Check hemoglobin A1c 03/14/22 * Decrease Lantus dose to 20 units due to patient having possible hypoglycemic symptoms with sugars in the 110's. * Will continue to monitor sugars. (3) Atrial fibrillation: Code(s): I48.91 - Unspecified atrial fibrillation Status: Chronic Assessment and Plan: * Patient taking amiodarone for AFib -continue * Patient rate controlled * In sinus rhythm at the time of exam. (4) Chronic wound of extremity: Status: Acute Assessment and Plan: Patient has right toe wound/callus, right upper tucker wounds and left lateral knee wound/callus * Wound care consulted * Mineral oil cream to legs and feet 03/14/20 * Burn at index finger MCP anterior side. * Patient stated that she got this on 2021 while she was cooking. * Patient has neuropathy in her hands and has since stopped cooking. * Patient's caregiver has been addressing the wound. * I removed Band-Aid and ordered bacitracin to be applied to wound with nonstick gauze and gauze wrappings to be changed daily. Time Spent With Patient Time: Encounter lasting greater than 35 minutes Subjective Date/time seen: 03/15/22 14:14 Interval history: Patient feeling much better today. Patient no longer pale or diaphoretic. Patient states that she is just feeling tired. Patient not experiencing lightheadedness, fever, dizziness, headache, shortness of breath, chest pain, nausea, vomiting, chills or body aches. Review of Systems Review of Systems: All systems reviewed & are unremarkable except as noted in HPI and below Exam Narrative: GENERAL: Lethargic, diaphoretic,
--- NOTE | 2022-03-15 14:14 | PM.IMPN ---
Progress Note: A&P Assessment and Plan (1) ESRD (end stage renal disease) on dialysis: Code(s): N18.6 - End stage renal disease; Z99.2 - Dependence on renal dialysis Status: Acute Assessment and Plan: Patient with end-stage renal disease that gets dialysis on Thursday Nephrology consulted and appreciate recommendations Patient with BUN and creatinine of 78 and 12.[address] Mcintosh and Dr. Muñoz as an outpatient Patient missed last 2 dialysis appointments Patient undergoing dialysis today 03/13/2022 Replenish electrolytes as needed 03/14/22 I received a call from at 12:45 pm stating patient was not feeling well, lethargic and diaphoretic. Pt had just returned from dialysis and they had removed 3 L of fluids. Patient had blood pressure of 85/55 and I ordered 500mL bolus of normal saline. Pt blood sugar was 112. I got off phone with nurse and promptly saw patient. Patient was not tachycardic but was diaphoretic and pale. Patient was given some orange juice and fluids were running. I think contacted attending physician and he saw patient as well. Called Supervisor/Port Director, Dr. Mejias, and relayed information to him. He recommended continuing fluid bolus and close monitoring of patient. Patient home narcotics held Blood pressure increased to 138/61 after bolus and patient feeling better. 03/15/22 Continue to monitor patient's blood pressure and blood sugars. Plan to possibly discharge tomorrow if patient remains stable. Next dialysis appointment scheduled for Thursday03/17/2022 (2) Diabetes mellitus: Code(s): E11.9 - Type 2 diabetes mellitus without complications Status: Chronic Assessment and Plan: Start patient on Lantus 30 units, home dose Initiate sliding scale Hypoglycemic protocols with Accu-Cheks a.c. HS Check hemoglobin A1c 03/14/22 Decrease Lantus dose to 20 units due to patient having possible hypoglycemic symptoms with sugars in the 110's. Will continue to monitor sugars. (3) Atrial fibrillation: Code(s): I48.91 - Unspecified atrial fibrillation Status: Chronic Assessment and Plan: Patient taking amiodarone for AFib -continue Patient rate controlled In sinus rhythm at the time of exam. (4) Chronic wound of extremity: Status: Acute Assessment and Plan: Patient has right toe wound/callus, right upper tucker wounds and left lateral knee wound/callus Wound care consulted Mineral oil cream to legs and feet 03/14/20 Burn at index finger MCP anterior side. Patient stated that she got this on of 2021 while she was cooking. Patient has neuropathy in her hands and has since stopped cooking. Patient's caregiver has been addressing the wound. I removed Band-Aid and ordered bacitracin to be applied to wound with nonstick gauze and gauze wrappings to be changed daily. Time Spent With Patient Time: Encounter lasting greater than 35 minutes Subjective Date/time seen: 03/15/22 14:14 Interval history: Patient feeling much better today. Patient no longer pale or diaphoretic. Patient states that she is just feeling tired. Patient not experiencing lightheadedness, fever, dizziness, headache, shortness of breath, chest pain, nausea, vomiting, chills or body aches. Review of Systems Review of Systems: All systems reviewed & are unremarkable except as noted in HPI and below Exam Narrative: GENERAL: Lethargic, diaphoretic, pale HENMT: moist mucous membranes, EYES: Right eye cataract, legal blindness bilaterally, patient is still able to track you with her eyes. NECK: no lymphadenopathy RESPIRATORY: clear to auscultation CARDIO: RRR GI: soft, nontender, bowel sounds present SKIN/EXTREMITIES: Left [id number] amputation, callus on the lateral left knee, right lower extremity discoloration with dull redness and associated scattered scabbing as well as dry skin, right great to
[2022-03-15 17:13] LABS: Glucose Point of Care 186 mg/dl (65-105)
[2022-03-15 20:43] LABS: Glucose Point of Care 248 mg/dl (65-105)
[2022-03-15 21:02] VITALS: BP 110/50; PULSE 68; RESP 16; TEMP 36.7; O2SAT 100
[2022-03-15] MEDS: INSULIN GLARGINE (*BKC) 100 UNITS/ML 20 UNITS SUB-Q (21:17)
[2022-03-16] MEDS: oxyCODONE/ACETAMINOPHEN (*CRX) 5-325 MG TABLET 1 TABLET PO ×3 (05:17→21:03)
[2022-03-16] MEDS: oxyCODONE HCL (*CRX) 2.5 MG TAB IR PO ×3 (05:17→21:03)
[2022-03-16] MEDS: busPIRone HCL 10 MG TABLET PO ×3 (05:17→21:03)
[2022-03-16] MEDS: CENTRAL LINE FLUSH 10 ML IV PUSH ×2 (05:18→21:07)
[2022-03-16] MEDS: GABAPENTIN 300 MG CAPSULE PO ×3 (05:18→21:03)
[2022-03-16 05:50] LABS: Basophils Absolute Auto 0.1 K/mm3 (0.0-0.1); Basophils Percent Auto 0.5 % (0.2-1.2); Eosinophils Absolute Auto 0.1 K/mm3 (0-0.3); Eosinophils Percent Auto 1.5 % (0-4.4); Hematocrit 25.4 % (37.0-47.0); Hemoglobin 7.7 g/dL (12.0-15.0); Immature Granulocyte Absolute 0.06 K/mm3 (0.00-0.031); Immature Granulocyte Percent A 0.6 % (0-0.5); Lymphocytes Absolute Auto 1.23 K/mm3 (0.9-3.2); Lymphocytes Percent Auto 13.1 % (18.3-44.2); Mean Corpuscular HGB Conc 30.3 g/dl (32-36); Mean Corpuscular Hemoglobin 29.2 pg (26-34); Mean Corpuscular Volume 96.2 fl (80-100); Mean Platelet Volume 9.5 fl (7.4-10.4); Monocytes Absolute Auto 0.8 K/mm3 (0.1-0.6); Monocytes Percent Auto 8.5 % (2.6-8.5); Neutrophils Absolute Auto 7.1 K/mm3 (1.3-6.7); Neutrophils Percent Auto 75.8 % (45.5-73.1); Platelet Count Result 241 k/mm3 (150-375); Red Blood Count 2.64 M/mm3 (4.2-5.4); Red Cell Distribution Width 15.8 % (11.5-14.5); White Blood Count 9.4 K/mm3 (4.5-10.0)
[2022-03-16 06:00] VITALS: BP 115/31; PULSE 65; RESP 16; TEMP 37.2; O2SAT 94
[2022-03-16 06:03] LABS: Alanine Aminotransferase 13 U/L (6-35); Albumin Level 3.5 g/dL (3.5-5.1); Alkaline Phosphatase 98 U/L (38-126); Anion Gap 10 mmol/L (8-16); Aspartate Amino Transferase 14 U/L (14-36); Bilirubin,Total 0.4 mg/dL (0.2-1.3); Blood Urea Nitrogen 39 mg/dL (7-17); Calcium 8.2 mg/dL (8.4-10.2); Carbon Dioxide 30 mmol/L (22-30); Chloride 94 mmol/L (98-107); Estimated CRCL calculation 7 ml/min; Estimated Glomerular Filt Rate 5; Glucose 212 mg/dL (65-110); Potassium 4.3 mmol/L (3.4-5.0); Sodium 134 mmol/L (137-145)
[2022-03-16] MEDS: EUCERIN CREAM 120 GM JAR 1 APPLIC TOPICAL (08:06)
[2022-03-16] MEDS: APIXABAN 2.5 MG TABLET PO ×2 (08:06→17:02)
[2022-03-16] MEDS: SILVERGEL (ELTA) 45 ML 1 APPLIC TOPICAL (08:11)
[2022-03-16 08:28] LABS: Glucose Point of Care 162 mg/dl (65-105)
[2022-03-16 12:06] LABS: Glucose Point of Care 204 mg/dl (65-105)
--- NOTE | 2022-03-16 12:06 | PM.PNNEP ---
Progress Note: A&P Assessment and Plan (1) End stage renal disease: Code(s): N18.6 - End stage renal disease Status: Chronic Assessment and Plan: HD tomorrow and continue M/W/F schedule follow electrolytes, volume status, and clearance it would seem that she does not tolerated back - back dialysis treatments based on events on 03/14/22 (2) Generalized weakness: Code(s): R53.1 - Weakness Status: Acute Assessment and Plan: following recent fall PT/OT likely rehab on discharge (3) Anemia: Code(s): D64.9 - Anemia, unspecified Status: Chronic Assessment and Plan: due to ESRD and recent hospitalization/infection Epogen with HD follow trend of H/H (4) Hypertension: Code(s): I10 - Essential (primary) hypertension Status: Chronic Assessment and Plan: reasonable control at this time continue home medications follow trend of hemodynamics (5) Diabetes mellitus: Code(s): E11.9 - Type 2 diabetes mellitus without complications Status: Chronic Assessment and Plan: follow accuchecks glycemic control Will continue to follow. Subjective Date/time seen: 03/16/22 12:08 No apparent distress noted at this time; continues to make slow and steady improvement; no other acute issues/events overnight or earlier this morning; feels reasonably well. Exam Narrative: General: WD/WN female in NAD Heart: normal S1 and S2; no rub Lungs: clear anteriorly, decreased at bases Abdomen: soft, nontender, nondistended, positive bowel sounds Extremities: no cyanosis or clubbing; trace edema (RLE) Skin: no rash Objective Data Vital Signs Vital Signs: Vital Signs Temp Pulse Resp BP Pulse Ox O2 Del Method 03/16/22 12:08 63 03/16/22 08:00 Room Air 03/16/22 06:00 98.9 F 65 16 115/31 L 94 03/15/22 21:02 98.1 F 68 16 110/50 L 100 Intake/Output Intake/Output: Intake & Output 03/13/22 03/14/22 03/15/22 03/16/22 23:59 23:59 23:59 23:59 Intake Total 764 1600 1030 1070 Output Total 2500 3000 Balance -1736 -1400 1030 1070 Meds/Results Medications: Active Medications Generic Name Dose Route Start Last Admin Trade Name Freq PRN Reason Stop Dose Admin Alteplase, Recombinant 2 mg 03/13/22 14:52 03/13/22 17:11 Alteplase 2 Mg Vial (Cathflo) IV PUSH 2 mg ONCE PRN Administration Line Occlusion Alteplase, Recombinant 2 mg 03/13/22 15:03 Alteplase 2 Mg Vial (Cathflo) IV PUSH ONCE PRN Line Occlusion Amiodarone HCl 200 mg 03/13/22 12:00 03/16/22 12:08 Amiodarone Hcl 200 Mg Tablet PO 200 mg Q24H DEBRA Administration Apixaban 2.5 mg 03/13/22 09:00 03/16/22 08:06 Apixaban 2.5 Mg Tablet PO 2.5 mg BID DEBRA Administration Buspirone HCl 10 mg 03/15/22 22:00 03/16/22 13:36 Buspirone Hcl 10 Mg Tablet PO 10 mg Q8HR DEBRA Administration Calcium Carbonate 200 mg 03/13/22 14:10 Calcium Carbonate (Tums) 500 Mg (200 Mg Elemental) PO Q6H PRN Indigestion Dextrose 12.5 gm 03/13/22 08:20 Dextrose 50% 25 Gm/50 Ml Syringe IV PUSH PRN PRN Hypoglycemia Protocol Gabapentin 300 mg 03/15/22 22:00 03/16/22 13:36 Gabapentin 300 Mg Capsule PO 300 mg Q8HR DEBRA Administration Glucagon 1 mg 03/13/22 08:20 Glucagon For Inj 1 Mg Vial IM PRN PRN Hypoglycemia Protocol Glucose 15 gm 03/13/22 08:20 Glucose Oral Gel 15 Gm Of Glucse In 37.5 Gm Tube PO PRN PRN Hypoglycemia Protocol Heparin Sodium (Beef Lung) 50 units 03/13/22 09:00 03/16/22 08:11 Heparin Flush 50 Units/5 Ml Syringe IV PUSH 50 units QAM DEBRA Administration Heparin Sodium (Beef Lung) 50 units 03/13/22 03:07 Heparin Flush 50 Units/5 Ml Syringe IV PUSH PRN PRN after intermittent infusion Heparin Sodium (Beef Lung) 50 units 03/13/22 03:07 03/16/22 05:20 Heparin Flush 5
[2022-03-16 12:08] VITALS: PULSE 63
[2022-03-16] MEDS: AMIODARONE HCL 200 MG TABLET PO (12:08)
[2022-03-16] MEDS: INSULIN ASPART (*BKC) 100 UNITS/ML SUB-Q (12:09)
[2022-03-16] MEDS: ONDANSETRON INJ 4 MG/2 ML VIAL IV PUSH (13:39)
--- NOTE | 2022-03-16 14:10 | PM.IMPN ---
Progress Note: A&P Assessment and Plan (1) ESRD (end stage renal disease) on dialysis: Code(s): N18.6 - End stage renal disease; Z99.2 - Dependence on renal dialysis Status: Acute Assessment and Plan: Patient with end-stage renal disease that gets dialysis on Thursday Nephrology consulted and appreciate recommendations Patient with BUN and creatinine of 78 and 12.[address] Mcintosh and Dr. Muñoz as an outpatient Patient missed last 2 dialysis appointments Patient undergoing dialysis today 03/13/2022 Replenish electrolytes as needed 03/14/22 I received a call from at 12:45 pm stating patient was not feeling well, lethargic and diaphoretic. Pt had just returned from dialysis and they had removed 3 L of fluids. Patient had blood pressure of 85/55 and I ordered 500mL bolus of normal saline. Pt blood sugar was 112. I got off phone with nurse and promptly saw patient. Patient was not tachycardic but was diaphoretic and pale. Patient was given some orange juice and fluids were running. I think contacted attending physician and he saw patient as well. Called Spa Director, Dr. Mejias, and relayed information to him. He recommended continuing fluid bolus and close monitoring of patient. Patient home narcotics held Blood pressure increased to 138/61 after bolus and patient feeling better. 03/15/22 Continue to monitor patient's blood pressure and blood sugars. Plan to possibly discharge tomorrow if patient remains stable. Next dialysis appointment scheduled for Thursday03/17/2022 03/16/22 Discussed with nephrology and patient is cleared to be discharged. Awaiting placement (2) Diabetes mellitus: Code(s): E11.9 - Type 2 diabetes mellitus without complications Status: Chronic Assessment and Plan: Start patient on Lantus 30 units, home dose Initiate sliding scale Hypoglycemic protocols with Accu-Cheks a.c. HS Check hemoglobin A1c 03/14/22 Decrease Lantus dose to 20 units due to patient having possible hypoglycemic symptoms with sugars in the 110's. Will continue to monitor sugars. (3) Atrial fibrillation: Code(s): I48.91 - Unspecified atrial fibrillation Status: Chronic Assessment and Plan: Patient taking amiodarone for AFib -continue Patient rate controlled In sinus rhythm at the time of exam. (4) Chronic wound of extremity: Status: Acute Assessment and Plan: Patient has right toe wound/callus, right upper tucker wounds and left lateral knee wound/callus Wound care consulted Mineral oil cream to legs and feet 03/14/20 Burn at index finger MCP anterior side. Patient stated that she got this on of 2021 while she was cooking. Patient has neuropathy in her hands and has since stopped cooking. Patient's caregiver has been addressing the wound. I removed Band-Aid and ordered bacitracin to be applied to wound with nonstick gauze and gauze wrappings to be changed daily. Plan MEDICAL DECISION MAKING NARRATIVE History obtained from: Patient History from independent sources: None External chart review: None New problems addressed: Burn on patient's hand Chronic illnesses addressed: End-stage renal disease Discussion of management with other providers: None Comorbidities complicating care: Type 2 diabetes Shared decision making: None Independent interpretation of studies: Imaging and labs were personally reviewed. Time Spent With Patient Time: Greater than 35 minutes Subjective Date/time seen: 03/16/22 14:10 Interval history: Patient feeling much better today. States she is fatigued. Patient denies headache, fever, dizziness, chest pain, shortness a breath, nausea, vomiting and diarrhea. Review of Systems Review of Systems: All systems reviewed & are unremarkable except as noted in HPI and below Exam Narrative: GENERAL: Comfortable, no acute distress HENMT: mo
[2022-03-16 15:14] VITALS: BP 119/59; PULSE 68; RESP 18; TEMP 36.1; O2SAT 100
[2022-03-16 17:12] LABS: Glucose Point of Care 199 mg/dl (65-105)
[2022-03-16 20:27] LABS: Glucose Point of Care 256 mg/dl (65-105)
[2022-03-16 20:35] VITALS: BP 119/70; PULSE 69; RESP 16; TEMP 36.7; O2SAT 100
[2022-03-16] MEDS: INSULIN GLARGINE (*BKC) 100 UNITS/ML 20 UNITS SUB-Q (21:08)
[2022-03-17] VITALS (19 sets, daily range): BP systolic 103–160; BP diastolic 50–102; PULSE 69–122; RESP 18–21; TEMP 36–37.1; O2SAT 95–100
[2022-03-17] MEDS: oxyCODONE/ACETAMINOPHEN (*CRX) 5-325 MG TABLET 1 TABLET PO ×3 (05:01→21:19)
[2022-03-17] MEDS: busPIRone HCL 10 MG TABLET PO ×3 (05:01→21:19)
[2022-03-17] MEDS: oxyCODONE HCL (*CRX) 2.5 MG TAB IR PO ×3 (05:01→21:19)
[2022-03-17] MEDS: GABAPENTIN 300 MG CAPSULE PO ×3 (05:01→21:19)
[2022-03-17] MEDS: CENTRAL LINE FLUSH 10 ML IV PUSH ×3 (05:01→21:19)
[2022-03-17 05:23] LABS: Hematocrit 24.8 % (37.0-47.0); Hemoglobin 7.7 g/dL (12.0-15.0); Mean Corpuscular Hemoglobin 29.6 pg (26-34); Mean Corpuscular Volume 95.4 fl (80-100); Mean Platelet Volume 9.5 fl (7.4-10.4); Platelet Count Result 262 k/mm3 (150-375); Red Cell Distribution Width 15.9 % (11.5-14.5); White Blood Count 10.8 K/mm3 (4.5-10.0)
[2022-03-17 05:34] LABS: Alanine Aminotransferase 13 U/L (6-35); Albumin Level 3.7 g/dL (3.5-5.1); Alkaline Phosphatase 117 U/L (38-126); Anion Gap 10 mmol/L (8-16); Aspartate Amino Transferase 20 U/L (14-36); Bilirubin,Total 0.5 mg/dL (0.2-1.3); Blood Urea Nitrogen 52 mg/dL (7-17); Carbon Dioxide 27 mmol/L (22-30); Chloride 90 mmol/L (98-107); Estimated CRCL calculation 7 ml/min; Estimated Glomerular Filt Rate 5; Glucose 181 mg/dL (65-110); Potassium 4.4 mmol/L (3.4-5.0); Sodium 127 mmol/L (137-145)
[2022-03-17 08:38] LABS: Glucose Point of Care 184 mg/dl (65-105)
--- NOTE | 2022-03-17 09:06 | PC.NURSE ---
Report called to rugby league footballer.
--- NOTE | 2022-03-17 09:47 | PC.NURSE ---
To dialysis via bed.
--- NOTE | 2022-03-17 10:54 | PM.PNNEP ---
Progress Note: A&P Assessment and Plan (1) End stage renal disease: Code(s): N18.6 - End stage renal disease Status: Chronic Assessment and Plan: HD today and continue M/W/ schedule follow electrolytes, volume status, and clearance it would seem that she does not tolerated back - back dialysis treatments based on events on 03/14/22 (2) Generalized weakness: Code(s): R53.1 - Weakness Status: Acute Assessment and Plan: following recent fall PT/OT likely rehab on discharge (3) Anemia: Code(s): D64.9 - Anemia, unspecified Status: Chronic Assessment and Plan: due to ESRD and recent hospitalization/infection Epogen with HD follow trend of H/H (4) Hypertension: Code(s): I10 - Essential (primary) hypertension Status: Chronic Assessment and Plan: reasonable control at this time continue home medications follow trend of hemodynamics (5) Diabetes mellitus: Code(s): E11.9 - Type 2 diabetes mellitus without complications Status: Chronic Assessment and Plan: follow accuchecks glycemic control Will continue to follow. Subjective Date/time seen: 03/17/22 10:54 Tolerating dialysis treatment at the time of my visit (seen on HD at ~ 10:45AM); no acute issues/complaints voiced at this time other that still having difficulty bearing weight on her RLE; no events overnight or earlier this morning; no apparent distress to report. Exam Narrative: General: WD/WN female in NAD Heart: normal S1 and S2; no rub Lungs: clear anteriorly, decreased at bases Abdomen: soft, nontender, nondistended, positive bowel sounds Extremities: no cyanosis or clubbing; trace edema (RLE) Skin: no nodules Objective Data Vital Signs Vital Signs: Vital Signs Temp Pulse Resp BP Pulse Ox O2 Del Method 03/17/22 08:45 18 95 Room Air 03/17/22 06:00 97.5 F L 69 18 136/51 L 95 03/16/22 20:35 98.1 F 69 16 119/70 100 03/16/22 15:14 96.9 F L 68 18 119/59 L 100 03/16/22 12:08 63 Intake/Output Intake/Output: Intake & Output 03/14/22 03/15/22 03/16/22 03/17/22 23:59 23:59 23:59 23:59 Intake Total 1600 1030 1560 470 Output Total 3000 Balance -1400 1030 1560 470 Meds/Results Medications: Active Medications Generic Name Dose Route Start Last Admin Trade Name Freq PRN Reason Stop Dose Admin Alteplase, Recombinant 2 mg 03/13/22 14:52 03/13/22 17:11 Alteplase 2 Mg Vial (Cathflo) IV PUSH 2 mg ONCE PRN Administration Line Occlusion Alteplase, Recombinant 2 mg 03/13/22 15:03 Alteplase 2 Mg Vial (Cathflo) IV PUSH ONCE PRN Line Occlusion Amiodarone HCl 200 mg 03/13/22 12:00 03/16/22 12:08 Amiodarone Hcl 200 Mg Tablet PO 200 mg Q24H DEBRA Administration Apixaban 2.5 mg 03/13/22 09:00 03/16/22 17:02 Apixaban 2.5 Mg Tablet PO 2.5 mg BID DEBRA Administration Buspirone HCl 10 mg 03/15/22 22:00 03/17/22 05:01 Buspirone Hcl 10 Mg Tablet PO 10 mg Q8HR DEBRA Administration Calcium Carbonate 200 mg 03/13/22 14:10 Calcium Carbonate (Tums) 500 Mg (200 Mg Elemental) PO Q6H PRN Indigestion Dextrose 12.5 gm 03/16/22 14:14 Dextrose 50% 25 Gm/50 Ml Syringe IV PUSH PRN PRN Hypoglycemia Protocol Epoetin Gurwinder-epbx 20,000 units 03/17/22 21:15 Epoetin Gurwinder-Epbx 20,000 Units/Ml Vial IV PUSH 03/17/22 21:16 ONCE ONE Gabapentin 300 mg 03/15/22 22:00 03/17/22 05:01 Gabapentin 300 Mg Capsule PO 300 mg Q8HR DEBRA Administration Glucagon 1 mg 03/16/22 14:14 Glucagon For Inj 1 Mg Vial IM PRN PRN Hypoglycemia Protocol Glucose 15 gm 03/16/22 14:14 Glucose Oral Gel 15 Gm Of Glucse In 37.5 Gm Tube PO PRN PRN Hypoglycemia Protocol Heparin Sodium (Beef Lung) 50 units 03/13/22 09:00 03/16/22 08:11 Heparin Flush 50 Units/5 Ml Syringe IV PUSH
[2022-03-17] MEDS: EPOETIN ALFA-EPBX 20,000 UNITS/ML VIAL 20000 UNITS IV PUSH (11:30)
--- NOTE | 2022-03-17 14:17 | PCOTNOTE ---
Attempted to see patient this pm, however patient was off floor for dialysis.
--- NOTE | 2022-03-17 14:24 | PC.NURSE ---
Returned from dialysis via bed.
[2022-03-17] MEDS: EUCERIN CREAM 120 GM JAR 1 APPLIC TOPICAL (14:34)
[2022-03-17 14:37] LABS: Glucose Point of Care 119 mg/dl (65-105)
[2022-03-17] MEDS: AMIODARONE HCL 200 MG TABLET PO (14:37)
--- NOTE | 2022-03-17 16:26 | P.PNIM_ITS ---
Progress Note: A&P Assessment and Plan (1) ESRD (end stage renal disease) on dialysis: Code(s): N18.6 - End stage renal disease; Z99.2 - Dependence on renal dialysis Status: Acute Assessment and Plan: Patient with end-stage renal disease that gets dialysis on Thursday * Nephrology consulted and appreciate recommendations * Patient with BUN and creatinine of 78 and 12.3 * Patient normally sees Dr. Mcintosh and Dr. Muñoz as an outpatient * Patient missed last 2 dialysis appointments * Patient undergoing dialysis today 03/13/2022 * Replenish electrolytes as needed 03/14/22 * I received a call from at 12:45 pm stating patient was not feeling well, lethargic and diaphoretic. Pt had just returned from dialysis and they had removed 3 L of fluids. Patient had blood pressure of 85/55 and I ordered 500mL bolus of normal saline. Pt blood sugar was 112. I got off phone with nurse and promptly saw patient. Patient was not tachycardic but was diaphoretic and pale. Patient was given some orange juice and fluids were running. I think contacted attending physician and he saw patient as well. Called Dry Heat Cabinet Attendant, Dr. Mejias, and relayed information to him. He recommended continuing fluid bolus and close monitoring of patient. * Patient home narcotics held * Blood pressure increased to 138/61 after bolus and patient feeling better. 03/15/22 * Continue to monitor patient's blood pressure and blood sugars. * Plan to possibly discharge tomorrow if patient remains stable. * Next dialysis appointment scheduled for Thursday03/17/2022 03/16/22 * Discussed with nephrology and patient is cleared to be discharged. * Awaiting placement 03/17/22 * dialysis today * awaiting placement (2) Diabetes mellitus: Code(s): E11.9 - Type 2 diabetes mellitus without complications Status: Chronic Assessment and Plan: * Start patient on Lantus 30 units, home dose * Initiate sliding scale * Hypoglycemic protocols with Accu-Cheks a.c. HS * Check hemoglobin A1c 03/14/22 * Decrease Lantus dose to 20 units due to patient having possible hypoglycemic symptoms with sugars in the 110's. * Will continue to monitor sugars. (3) Atrial fibrillation: Code(s): I48.91 - Unspecified atrial fibrillation Status: Chronic Assessment and Plan: * Patient taking amiodarone for AFib -continue * Patient rate controlled * In sinus rhythm at the time of exam. (4) Chronic wound of extremity: Status: Acute Assessment and Plan: Patient has right toe wound/callus, right upper tucker wounds and left lateral knee wound/callus * Wound care consulted * Mineral oil cream to legs and feet 03/14/20 * Burn at index finger MCP anterior side. * Patient stated that she got this on 2021 while she was cooking. * Patient has neuropathy in her hands and has since stopped cooking. * Patient's caregiver has been addressing the wound. * I removed Band-Aid and ordered bacitracin to be applied to wound with nonstick gauze and gauze wrappings to be changed daily. Plan MEDICAL DECISION MAKING NARRATIVE History obtained from: Patient History from independent sources: None External chart review: None New problems addressed: Burn on patient's hand Chronic illnesses addressed: End-stage renal disease Discussion of management with other providers: None Comorbidities complicating care: Type 2 diabetes Shared decision making: None Independent interpretation of studies: Imaging and labs were personally reviewed.
--- NOTE | 2022-03-17 16:26 | PM.IMPN ---
Progress Note: A&P Assessment and Plan (1) ESRD (end stage renal disease) on dialysis: Code(s): N18.6 - End stage renal disease; Z99.2 - Dependence on renal dialysis Status: Acute Assessment and Plan: Patient with end-stage renal disease that gets dialysis on Thursday Nephrology consulted and appreciate recommendations Patient with BUN and creatinine of 78 and 12.[address] Mcintosh and Dr. Muñoz as an outpatient Patient missed last 2 dialysis appointments Patient undergoing dialysis today 03/13/2022 Replenish electrolytes as needed 03/14/22 I received a call from at 12:45 pm stating patient was not feeling well, lethargic and diaphoretic. Pt had just returned from dialysis and they had removed 3 L of fluids. Patient had blood pressure of 85/55 and I ordered 500mL bolus of normal saline. Pt blood sugar was 112. I got off phone with nurse and promptly saw patient. Patient was not tachycardic but was diaphoretic and pale. Patient was given some orange juice and fluids were running. I think contacted attending physician and he saw patient as well. Called Retail Sales Representative, Dr. Mejias, and relayed information to him. He recommended continuing fluid bolus and close monitoring of patient. Patient home narcotics held Blood pressure increased to 138/61 after bolus and patient feeling better. 03/15/22 Continue to monitor patient's blood pressure and blood sugars. Plan to possibly discharge tomorrow if patient remains stable. Next dialysis appointment scheduled for Thursday03/17/2022 03/16/22 Discussed with nephrology and patient is cleared to be discharged. Awaiting placement 03/17/22 dialysis today awaiting placement (2) Diabetes mellitus: Code(s): E11.9 - Type 2 diabetes mellitus without complications Status: Chronic Assessment and Plan: Start patient on Lantus 30 units, home dose Initiate sliding scale Hypoglycemic protocols with Accu-Cheks a.c. HS Check hemoglobin A1c 03/14/22 Decrease Lantus dose to 20 units due to patient having possible hypoglycemic symptoms with sugars in the 110's. Will continue to monitor sugars. (3) Atrial fibrillation: Code(s): I48.91 - Unspecified atrial fibrillation Status: Chronic Assessment and Plan: Patient taking amiodarone for AFib -continue Patient rate controlled In sinus rhythm at the time of exam. (4) Chronic wound of extremity: Status: Acute Assessment and Plan: Patient has right toe wound/callus, right upper tucker wounds and left lateral knee wound/callus Wound care consulted Mineral oil cream to legs and feet 03/14/20 Burn at index finger MCP anterior side. Patient stated that she got this on of 2021 while she was cooking. Patient has neuropathy in her hands and has since stopped cooking. Patient's caregiver has been addressing the wound. I removed Band-Aid and ordered bacitracin to be applied to wound with nonstick gauze and gauze wrappings to be changed daily. Plan MEDICAL DECISION MAKING NARRATIVE History obtained from: Patient History from independent sources: None External chart review: None New problems addressed: Burn on patient's hand Chronic illnesses addressed: End-stage renal disease Discussion of management with other providers: None Comorbidities complicating care: Type 2 diabetes Shared decision making: None Independent interpretation of studies: Imaging and labs were personally reviewed. Time Spent With Patient Time: Greater than 35 minutes Subjective Date/time seen: 03/17/22 16:26 Interval history: Patient getting dialysis when seen today. States she is fatigued. Patient denies headache, fever, dizziness, chest pain, shortness a breath, nausea, vomiting and diarrhea. Review of Systems Review of Systems: All systems reviewed & are unremarkable except as noted in HPI and below Exam Narrativ
[2022-03-17] MEDS: APIXABAN 2.5 MG TABLET PO (16:43)
[2022-03-17 16:51] LABS: Glucose Point of Care 218 mg/dl (65-105)
[2022-03-17] MEDS: INSULIN ASPART (*BKC) 100 UNITS/ML SUB-Q (16:54)
[2022-03-17] MEDS: INSULIN GLARGINE (*BKC) 100 UNITS/ML 20 UNITS SUB-Q (21:19)
[2022-03-17 21:31] LABS: Glucose Point of Care 174 mg/dl (65-105)
[2022-03-18] MEDS: busPIRone HCL 10 MG TABLET PO ×3 (05:12→21:06)
[2022-03-18] MEDS: oxyCODONE HCL (*CRX) 2.5 MG TAB IR PO ×3 (05:12→21:06)
[2022-03-18] MEDS: oxyCODONE/ACETAMINOPHEN (*CRX) 5-325 MG TABLET 1 TABLET PO ×3 (05:12→21:06)
[2022-03-18] MEDS: GABAPENTIN 300 MG CAPSULE PO ×3 (05:13→21:06)
[2022-03-18] MEDS: CENTRAL LINE FLUSH 10 ML IV PUSH ×2 (05:13→21:09)
[2022-03-18 05:26] LABS: Hematocrit 24.1 % (37.0-47.0); Hemoglobin 7.4 g/dL (12.0-15.0); Mean Corpuscular HGB Conc 30.7 g/dl (32-36); Mean Corpuscular Hemoglobin 29.7 pg (26-34); Mean Corpuscular Volume 96.8 fl (80-100); Platelet Count Result 208 k/mm3 (150-375); Red Blood Count 2.49 M/mm3 (4.2-5.4); Red Cell Distribution Width 16.4 % (11.5-14.5); White Blood Count 9.1 K/mm3 (4.5-10.0)
[2022-03-18 05:44] LABS: Alanine Aminotransferase 12 U/L (6-35); Albumin Level 3.5 g/dL (3.5-5.1); Alkaline Phosphatase 97 U/L (38-126); Anion Gap 7 mmol/L (8-16); Aspartate Amino Transferase 17 U/L (14-36); Bilirubin,Total 0.5 mg/dL (0.2-1.3); Blood Urea Nitrogen 23 mg/dL (7-17); Calcium 8.2 mg/dL (8.4-10.2); Carbon Dioxide 30 mmol/L (22-30); Chloride 95 mmol/L (98-107); Estimated CRCL calculation 11 ml/min; Estimated Glomerular Filt Rate 8; Glucose 145 mg/dL (65-110); Potassium 4.1 mmol/L (3.4-5.0); Sodium 132 mmol/L (137-145)
[2022-03-18 06:00] VITALS: BP 108/46; PULSE 73; RESP 18; TEMP 36.9; O2SAT 96
[2022-03-18 08:38] LABS: Glucose Point of Care 133 mg/dl (65-105)
[2022-03-18] MEDS: EUCERIN CREAM 120 GM JAR 1 APPLIC TOPICAL (09:50)
[2022-03-18] MEDS: APIXABAN 2.5 MG TABLET PO ×2 (09:50→17:20)
--- NOTE | 2022-03-18 10:43 | PM.PNNEP ---
Progress Note: A&P Assessment and Plan (1) End stage renal disease: Code(s): N18.6 - End stage renal disease Status: Chronic Assessment and Plan: HD tomorrow and continue M/W/F schedule follow electrolytes, volume status, and clearance it would seem that she does not tolerated back - back dialysis treatments based on events on 03/14/22 (2) Generalized weakness: Code(s): R53.1 - Weakness Status: Acute Assessment and Plan: following recent fall PT/OT likely rehab on discharge (3) Anemia: Code(s): D64.9 - Anemia, unspecified Status: Chronic Assessment and Plan: due to ESRD and recent hospitalization/infection Epogen with HD follow trend of H/H (4) Hypertension: Code(s): I10 - Essential (primary) hypertension Status: Chronic Assessment and Plan: reasonable control at this time continue home medications follow trend of hemodynamics (5) Diabetes mellitus: Code(s): E11.9 - Type 2 diabetes mellitus without complications Status: Chronic Assessment and Plan: follow accuchecks glycemic control Will continue to follow. Subjective Date/time seen: 03/18/22 10:43 Tolerated dialysis treatment yesterday without any issues or problems; no other acute issues or problems voiced at this time; no apparent distress to report; still with difficulty bearing weight on RLE. Exam Narrative: General: WD/WN female in NAD Heart: normal S1 and S2; no rub Lungs: clear anteriorly, decreased at bases Abdomen: soft, nontender, nondistended, positive bowel sounds Extremities: no cyanosis or clubbing; trace edema (RLE) Skin: warm and dry Objective Data Vital Signs Vital Signs: Vital Signs Temp Pulse Resp BP Pulse Ox 03/18/22 06:00 98.5 F 73 18 108/46 L 96 03/17/22 22:00 98.7 F 122 H 21 H 143/56 H 100 03/17/22 14:06 97.7 F 102 H 18 157/92 H 03/17/22 14:00 104 H 160/102 H 03/17/22 13:40 91 135/53 L 03/17/22 13:20 102 H 129/91 H 03/17/22 13:00 80 109/74 03/17/22 12:40 109 H 103/52 L 03/17/22 12:20 70 122/57 L 03/17/22 12:00 85 104/54 L 03/17/22 11:40 105 H 106/66 03/17/22 11:20 95 108/55 L 03/17/22 11:00 72 104/54 L 03/17/22 14:37 76 Intake/Output Intake/Output: Intake & Output 03/15/22 03/16/22 03/17/22 03/18/22 23:59 23:59 23:59 23:59 Intake Total 1030 1560 710 786 Output Total 800 Balance 1030 1560 -90 786 Meds/Results Medications: Active Medications Generic Name Dose Route Start Last Admin Trade Name Freq PRN Reason Stop Dose Admin Alteplase, Recombinant 2 mg 03/13/22 14:52 03/13/22 17:11 Alteplase 2 Mg Vial (Cathflo) IV PUSH 2 mg ONCE PRN Administration Line Occlusion Alteplase, Recombinant 2 mg 03/13/22 15:03 Alteplase 2 Mg Vial (Cathflo) IV PUSH ONCE PRN Line Occlusion Amiodarone HCl 200 mg 03/13/22 12:00 03/17/22 14:37 Amiodarone Hcl 200 Mg Tablet PO 200 mg Q24H DEBRA Administration Apixaban 2.5 mg 03/13/22 09:00 03/18/22 09:50 Apixaban 2.5 Mg Tablet PO 2.5 mg BID DEBRA Administration Buspirone HCl 10 mg 03/15/22 22:00 03/18/22 05:12 Buspirone Hcl 10 Mg Tablet PO 10 mg Q8HR DEBRA Administration Calcium Carbonate 200 mg 03/13/22 14:10 Calcium Carbonate (Tums) 500 Mg (200 Mg Elemental) PO Q6H PRN Indigestion Dextrose 12.5 gm 03/16/22 14:14 Dextrose 50% 25 Gm/50 Ml Syringe IV PUSH PRN PRN Hypoglycemia Protocol Gabapentin 300 mg 03/15/22 22:00 03/18/22 05:13 Gabapentin 300 Mg Capsule PO 300 mg Q8HR DEBRA Administration Glucagon 1 mg 03/16/22 14:14 Glucagon For Inj 1 Mg Vial IM PRN PRN Hypoglycemia Protocol Glucose 15 gm 03/16/22 14:14 Glucose Oral Gel 15 Gm Of Glucse In 37.5 Gm Tube PO PRN PRN Hypoglycemia Protocol Heparin Sodium (Beef
[2022-03-18 12:02] LABS: Glucose Point of Care 274 mg/dl (65-105)
[2022-03-18 12:28] VITALS: PULSE 72
[2022-03-18] MEDS: AMIODARONE HCL 200 MG TABLET PO (12:28)
[2022-03-18] MEDS: INSULIN ASPART (*BKC) 100 UNITS/ML SUB-Q (12:29)
--- NOTE | 2022-03-18 14:03 | P.PNIM_ITS ---
Progress Note: A&P Assessment and Plan (1) ESRD (end stage renal disease) on dialysis: Code(s): N18.6 - End stage renal disease; Z99.2 - Dependence on renal dialysis Status: Acute Assessment and Plan: Patient with end-stage renal disease that gets dialysis on Thursday * Nephrology consulted and appreciate recommendations * Patient with BUN and creatinine of 78 and 12.3 * Patient normally sees Dr. Mcintosh and Dr. Muñoz as an outpatient * Patient missed last 2 dialysis appointments * Patient undergoing dialysis today 03/13/2022 * Replenish electrolytes as needed 03/14/22 * I received a call from at 12:45 pm stating patient was not feeling well, lethargic and diaphoretic. Pt had just returned from dialysis and they had removed 3 L of fluids. Patient had blood pressure of 85/55 and I ordered 500mL bolus of normal saline. Pt blood sugar was 112. I got off phone with nurse and promptly saw patient. Patient was not tachycardic but was diaphoretic and pale. Patient was given some orange juice and fluids were running. I think contacted attending physician and he saw patient as well. Called [employer], Dr. Mejias, and relayed information to him. He recommended continuing fluid bolus and close monitoring of patient. * Patient home narcotics held * Blood pressure increased to 138/61 after bolus and patient feeling better. 03/15/22 * Continue to monitor patient's blood pressure and blood sugars. * Plan to possibly discharge tomorrow if patient remains stable. * Next dialysis appointment scheduled for Thursday03/17/2022 03/16/22 * Discussed with nephrology and patient is cleared to be discharged. * Awaiting placement 03/17/22 * dialysis today * awaiting placement 03/18/22 * Discussed with care coordination today patient is still waiting to hear back from insurance for placement into rehab. * Discussed hemoglobin with drapery installer. Continue to monitor. (2) Diabetes mellitus: Code(s): E11.9 - Type 2 diabetes mellitus without complications Status: Chronic Assessment and Plan: * Start patient on Lantus 30 units, home dose * Initiate sliding scale * Hypoglycemic protocols with Accu-Cheks a.c. HS * Check hemoglobin A1c 03/14/22 * Decrease Lantus dose to 20 units due to patient having possible hypoglycemic symptoms with sugars in the 110's. * Will continue to monitor sugars. (3) Atrial fibrillation: Code(s): I48.91 - Unspecified atrial fibrillation Status: Chronic Assessment and Plan: * Patient taking amiodarone for AFib -continue * Patient rate controlled * In sinus rhythm at the time of exam. (4) Chronic wound of extremity: Status: Acute Assessment and Plan: Patient has right toe wound/callus, right upper tucker wounds and left lateral knee wound/callus * Wound care consulted * Mineral oil cream to legs and feet 03/14/20 * Burn at index finger MCP anterior side. * Patient stated that she got this on of 2021 while she was cooking. * Patient has neuropathy in her hands and has since stopped cooking. * Patient's caregiver has been addressing the wound. * I removed Band-Aid and ordered bacitracin to be applied to wound with nonstick gauze and gauze wrappings to be changed daily. * wound care seeing patient Subjective Date/time seen: 03/18/22 14:03 Interval history: Patient getting dialysis when seen today. States she is fatigued. Patient denies headache, fever, dizziness, chest pain, shortness a breath, nausea, vomiting and diarrh
--- NOTE | 2022-03-18 14:03 | PM.IMPN ---
Progress Note: A&P Assessment and Plan (1) ESRD (end stage renal disease) on dialysis: Code(s): N18.6 - End stage renal disease; Z99.2 - Dependence on renal dialysis Status: Acute Assessment and Plan: Patient with end-stage renal disease that gets dialysis on Thursday Nephrology consulted and appreciate recommendations Patient with BUN and creatinine of 78 and 12.[address] Mcintosh and Dr. Muñoz as an outpatient Patient missed last 2 dialysis appointments Patient undergoing dialysis today 03/13/2022 Replenish electrolytes as needed 03/14/22 I received a call from at 12:45 pm stating patient was not feeling well, lethargic and diaphoretic. Pt had just returned from dialysis and they had removed 3 L of fluids. Patient had blood pressure of 85/55 and I ordered 500mL bolus of normal saline. Pt blood sugar was 112. I got off phone with nurse and promptly saw patient. Patient was not tachycardic but was diaphoretic and pale. Patient was given some orange juice and fluids were running. I think contacted attending physician and he saw patient as well. Called [employer], Dr. Mejias, and relayed information to him. He recommended continuing fluid bolus and close monitoring of patient. Patient home narcotics held Blood pressure increased to 138/61 after bolus and patient feeling better. 03/15/22 Continue to monitor patient's blood pressure and blood sugars. Plan to possibly discharge tomorrow if patient remains stable. Next dialysis appointment scheduled for Thursday03/17/2022 03/16/22 Discussed with nephrology and patient is cleared to be discharged. Awaiting placement 03/17/22 dialysis today awaiting placement 03/18/22 Discussed with care coordination today patient is still waiting to hear back from insurance for placement into rehab. Discussed hemoglobin with doctor of naprapathy. Continue to monitor. (2) Diabetes mellitus: Code(s): E11.9 - Type 2 diabetes mellitus without complications Status: Chronic Assessment and Plan: Start patient on Lantus 30 units, home dose Initiate sliding scale Hypoglycemic protocols with Accu-Cheks a.c. HS Check hemoglobin A1c 03/14/22 Decrease Lantus dose to 20 units due to patient having possible hypoglycemic symptoms with sugars in the 110's. Will continue to monitor sugars. (3) Atrial fibrillation: Code(s): I48.91 - Unspecified atrial fibrillation Status: Chronic Assessment and Plan: Patient taking amiodarone for AFib -continue Patient rate controlled In sinus rhythm at the time of exam. (4) Chronic wound of extremity: Status: Acute Assessment and Plan: Patient has right toe wound/callus, right upper tucker wounds and left lateral knee wound/callus Wound care consulted Mineral oil cream to legs and feet 03/14/20 Burn at index finger MCP anterior side. Patient stated that she got this on 2021 while she was cooking. Patient has neuropathy in her hands and has since stopped cooking. Patient's caregiver has been addressing the wound. I removed Band-Aid and ordered bacitracin to be applied to wound with nonstick gauze and gauze wrappings to be changed daily. wound care seeing patient Subjective Date/time seen: 03/18/22 14:03 Interval history: Patient getting dialysis when seen today. States she is fatigued. Patient denies headache, fever, dizziness, chest pain, shortness a breath, nausea, vomiting and diarrhea. Exam Narrative: GENERAL: Comfortable, no acute distress HENMT: moist mucous membranes, EYES: Right eye cataract, legal blindness bilaterally, patient is still able to track you with her eyes. NECK: no lymphadenopathy RESPIRATORY: clear to auscultation CARDIO: RRR GI: soft, nontender, bowel sounds present SKIN/EXTREMITIES: Left [id number] amputation, callus on the lateral left knee, right lower extremity discoloration wi
[2022-03-18 14:30] VITALS: BP 144/60; PULSE 69; RESP 16; TEMP 36.8; O2SAT 100
[2022-03-18 16:54] LABS: Glucose Point of Care 190 mg/dl (65-105)
[2022-03-18 21:00] VITALS: PULSE 68; RESP 18; O2SAT 96
[2022-03-18] MEDS: INSULIN GLARGINE (*BKC) 100 UNITS/ML 20 UNITS SUB-Q (21:07)
[2022-03-18 21:40] LABS: Glucose Point of Care 247 mg/dl (65-105)
[2022-03-18 22:34] VITALS: BP 127/51; PULSE 68; RESP 18; TEMP 36.4; O2SAT 96
[2022-03-19] VITALS (18 sets, daily range): BP systolic 114–166; BP diastolic 50–85; PULSE 68–102; RESP 18–21; TEMP 36–36.7; O2SAT 99–100
[2022-03-19] MEDS: oxyCODONE/ACETAMINOPHEN (*CRX) 5-325 MG TABLET 1 TABLET PO ×2 (05:40→13:36)
[2022-03-19] MEDS: oxyCODONE HCL (*CRX) 2.5 MG TAB IR PO ×2 (05:40→13:36)
[2022-03-19] MEDS: GABAPENTIN 300 MG CAPSULE PO ×2 (05:40→13:36)
[2022-03-19] MEDS: busPIRone HCL 10 MG TABLET PO ×2 (05:40→13:36)
[2022-03-19] MEDS: CENTRAL LINE FLUSH 10 ML IV PUSH ×2 (05:41→13:36)
[2022-03-19] MEDS: SILVERGEL (ELTA) 45 ML 1 APPLIC TOPICAL (06:00)
[2022-03-19 06:01] LABS: Hematocrit 23.9 % (37.0-47.0); Hemoglobin 7.3 g/dL (12.0-15.0); Mean Corpuscular HGB Conc 30.5 g/dl (32-36); Mean Corpuscular Hemoglobin 29.9 pg (26-34); Mean Platelet Volume 9.6 fl (7.4-10.4); Platelet Count Result 227 k/mm3 (150-375); Red Blood Count 2.44 M/mm3 (4.2-5.4); Red Cell Distribution Width 16.3 % (11.5-14.5)
[2022-03-19 06:35] LABS: Alanine Aminotransferase 12 U/L (6-35); Albumin Level 3.5 g/dL (3.5-5.1); Alkaline Phosphatase 97 U/L (38-126); Anion Gap 8 mmol/L (8-16); Aspartate Amino Transferase 14 U/L (14-36); Bilirubin,Total 0.5 mg/dL (0.2-1.3); Blood Urea Nitrogen 36 mg/dL (7-17); Calcium 8.2 mg/dL (8.4-10.2); Carbon Dioxide 29 mmol/L (22-30); Chloride 95 mmol/L (98-107); Estimated CRCL calculation 8 ml/min; Estimated Glomerular Filt Rate 5; Glucose 160 mg/dL (65-110); Potassium 4.3 mmol/L (3.4-5.0); Sodium 132 mmol/L (137-145)
[2022-03-19] MEDS: EUCERIN CREAM 120 GM JAR 1 APPLIC TOPICAL (08:19)
[2022-03-19 08:42] LABS: Glucose Point of Care 136 mg/dl (65-105)
[2022-03-19] MEDS: EPOETIN ALFA-EPBX 20,000 UNITS/ML VIAL 20000 UNITS IV PUSH (10:30)
--- NOTE | 2022-03-19 12:33 | PM.PNNEP ---
Progress Note: A&P Assessment and Plan (1) End stage renal disease: Code(s): N18.6 - End stage renal disease Status: Chronic Assessment and Plan: HD today and continue M/W/ schedule follow electrolytes, volume status, and clearance it would seem that she does not tolerated back - back dialysis treatments based on events on 03/14/22 (2) Generalized weakness: Code(s): R53.1 - Weakness Status: Acute Assessment and Plan: following recent fall PT/OT likely rehab on discharge (3) Anemia: Code(s): D64.9 - Anemia, unspecified Status: Chronic Assessment and Plan: due to ESRD and recent hospitalization/infection Epogen with HD follow trend of H/H (4) Hypertension: Code(s): I10 - Essential (primary) hypertension Status: Chronic Assessment and Plan: reasonable control at this time continue home medications follow trend of hemodynamics (5) Diabetes mellitus: Code(s): E11.9 - Type 2 diabetes mellitus without complications Status: Chronic Assessment and Plan: follow accuchecks glycemic control Will continue to follow. Subjective Date/time seen: 03/19/22 12:33 Tolerating dialysis treatment at the time of my visit (seen on HD at ~ 12:20PM); no other issues or problems to report at this time; no events overnight or earlier this AM. Exam Narrative: General: WD/WN female in NAD Heart: normal S1 and S2; no rub Lungs: clear anteriorly, decreased at bases Abdomen: soft, nontender, nondistended, positive bowel sounds Extremities: no cyanosis or clubbing; trace edema (RLE) Skin: warm and intact Objective Data Vital Signs Vital Signs: Vital Signs Temp Pulse Resp BP Pulse Ox O2 Del Method 03/19/22 12:20 75 159/67 H 03/19/22 12:00 73 139/65 03/19/22 11:40 73 131/66 03/19/22 11:20 76 138/76 03/19/22 11:00 99 134/67 03/19/22 10:40 102 H 146/64 H 03/19/22 10:20 89 145/60 H 03/19/22 10:00 68 152/62 H 03/19/22 09:40 69 128/69 03/19/22 09:30 70 126/60 01/25/23 09:21 97.9 F 70 20 114/59 L 03/19/22 08:28 Room Air 03/19/22 06:00 97.6 F 69 21 H 126/62 100 03/18/22 21:00 68 18 96 Room Air 03/18/22 22:34 97.6 F 68 18 127/51 L 96 03/18/22 14:30 98.2 F 69 16 144/60 H 100 Intake/Output Intake/Output: Intake & Output 03/16/22 03/17/22 03/18/22 03/19/22 23:59 23:59 23:59 23:59 Intake Total 0546 411 2751 1136 Output Total 800 200 50 Balance 1560 -90 1608 1086 Meds/Results Medications: Active Medications Generic Name Dose Route Start Last Admin Trade Name Freq PRN Reason Stop Dose Admin Alteplase, Recombinant 2 mg 03/13/22 14:52 03/13/22 17:11 Alteplase 2 Mg Vial (Cathflo) IV PUSH 2 mg ONCE PRN Administration Line Occlusion Alteplase, Recombinant 2 mg 03/13/22 15:03 Alteplase 2 Mg Vial (Cathflo) IV PUSH ONCE PRN Line Occlusion Amiodarone HCl 200 mg 03/13/22 12:00 03/18/22 12:28 Amiodarone Hcl 200 Mg Tablet PO 200 mg Q24H DEBRA Administration Apixaban 2.5 mg 03/13/22 09:00 03/18/22 17:20 Apixaban 2.5 Mg Tablet PO 2.5 mg BID DEBRA Administration Buspirone HCl 10 mg 03/15/22 22:00 03/19/22 05:40 Buspirone Hcl 10 Mg Tablet PO 10 mg Q8HR DEBRA Administration Calcium Carbonate 200 mg 03/13/22 14:10 Calcium Carbonate (Tums) 500 Mg (200 Mg Elemental) PO Q6H PRN Indigestion Dextrose 12.5 gm 03/16/22 14:14 Dextrose 50% 25 Gm/50 Ml Syringe IV PUSH PRN PRN Hypoglycemia Protocol Epoetin Gurwinder-epbx 20,000 units 03/19/22 21:33 03/19/22 10:30 Epoetin Gurwinder-Epbx 20,000 Units/Ml Vial IV PUSH 03/19/22 21:34 20,000 units ONCE ONE Administration Gabapentin 300 mg 03/15/22 22:00 03/19/22 05:40 Gabapentin 300 Mg Capsule PO 300 mg Q8HR DEBRA Administration Glucagon 1 mg 02/24
--- NOTE | 2022-03-19 13:16 | PM.IMPN ---
Progress Note: A&P Assessment and Plan (1) ESRD (end stage renal disease) on dialysis: Code(s): N18.6 - End stage renal disease; Z99.2 - Dependence on renal dialysis Status: Acute Assessment and Plan: Patient with end-stage renal disease dialysis schedule currently on Thursday. - Stable anemia, stable BUN/Cr. BP and VS are stable. - Nephrology is consulting and patient is to receive dialysis today. (2) Diabetes mellitus: Code(s): E11.9 - Type 2 diabetes mellitus without complications Status: Chronic Assessment and Plan: Current A1c is 7.8 with fbg 160 this am, within range. Mealtime glucoses have been trending high and it is noted that SSI initiated yesterday. Will cont. to follow and consider uptitration of SS if persists out of acceptable range. - Lantus 20units daily, SSI TIDAC (3) Atrial fibrillation: Code(s): I48.91 - Unspecified atrial fibrillation Status: Chronic Assessment and Plan: Hx of atrial fibrillation, on eliquis/amiodarone - stable rate on examination. Eliquis is renally dosed. (4) Chronic wound of extremity: Status: Acute Assessment and Plan: Patient has right toe wound/callus, right upper tucker wounds, MCP index finger burn, and left lateral knee wound/callus Wound care consulted Plan Expect 24-48 hours of further care with clinical social worker/care coordination working on disposition plan likely to facility. Time Spent With Patient Time: Greater than 30 minutes spent in chart review, patient examination, food order expediter, and discharge planning/care coordination consultation. Subjective Date/time seen: 03/19/22 13:16 Cristiana denies new concerns/complaints today. She is out of bed to chair and is expecting a visitor. She is conversant. She does note she is awaiting a call from insurer regarding placement options. Review of Systems Constitutional: Constitutional: Reports no additional constitutional complaints Cardiovascular: Cardiovascular: Reports no additional cardiovascular complaints Respiratory: Respiratory: Reports no additional respiratory complaints Gastrointestinal: Gastrointestinal: Reports no additional gastrointestinal complaints Exam Narrative: GENERAL APPEARANCE: Appears to be in no acute distress. HEAD: normocephalic atraumatic ENT: Hearing grossly intact, no nasal discharge NECK: Neck supple, trachea midline. CARDIAC: Normal S1/S2. Rhythm is regular. No murmurs, rubs, or gallops. No cyanosis or pallor. Extremities are warm and well perfused. LUNGS: Clear to auscultation without rales, rhonchi, wheezing or diminished breath sounds. Respirations even and unlabored. ABDOMEN: BS positive x 4 quadrants. Obese. Soft, nondistended, nontender. No guarding or rebound. MSK: Left BKA. NEURO: Follows commands. No focal deficits. PSYCH: Stable, no paranoia or delusional thinking. Objective Data Vital Signs Vital Signs: Vital Signs - 24 hr 03/18/22 14:30 03/18/22 22:34 03/18/22 21:00 Temperature 98.2 F 97.6 F Pulse Rate 69 68 68 Respiratory Rate 16 18 18 Blood Pressure 144/60 H 127/51 L Pulse Oximetry 100 96 96 Oxygen Delivery Room Air 03/19/22 06:00 03/19/22 08:28 03/19/22 09:21 Temperature 97.6 F 97.9 F Pulse Rate 69 70 Respiratory Rate 21 H 20 Blood Pressure 126/62 114/59 L Pulse Oximetry 100 Oxygen Delivery Room Air 03/19/22 09:30 03/19/22 09:40 03/19/22 10:00 Temperature Pulse Rate 70 69 68 Respiratory Rate Blood Pressure 126/60 128/69 152/62 H Pulse Oximetry Oxygen Delivery 03/19/22 10:20 03/19/22 10:40 03/19/22 11:00 Temperature Pulse Rate 89 102 H 99 Respiratory Rate Blood Pressure 145/60 H 146/64 H 134/67 Pulse Oximetry Oxygen Delivery 03/19/22 11:20 03/19/22 11:40 03/19/22 12:00 Temperature Pulse Rate 76 73 73 Respiratory Rate Blood Pressure 138/76 131/66 139/65 Pulse Oximetry Oxygen Delivery
[2022-03-19] MEDS: AMIODARONE HCL 200 MG TABLET PO (13:36)
[2022-03-19] MEDS: APIXABAN 2.5 MG TABLET PO (13:36)
[2022-03-19 13:51] LABS: Glucose Point of Care 164 mg/dl (65-105)
--- NOTE | 2022-03-19 14:18 | PM.DS ---
DS: Admitting Diagnosis Discharge Date 03/19/22 Admitting Diagnosis Weakness, ESRD, Wounds, T2DM, Atrial fibrillation w/o RVR DS: Discharge Diagnosis Discharge Diagnosis (1) ESRD (end stage renal disease) on dialysis: Code(s): N18.6 - End stage renal disease; Z99.2 - Dependence on renal dialysis Status: Acute Plan Weakness, ESRD, Wounds, T2DM, Atrial fibrillation w/o RVR DS: Summary Hospital Course Reason for hospitalization: Weakness Hospital Course: Cristiana Ladd presented from home after having missed two dialysis appointments with a complaint of generalized weakness. She has chronic concerns which were found to be generally stable. This includes wounds: right toe wound/callus, right upper tucker wounds, MCP index finger burn,? and left lateral knee wound/callus which have not appeared to be acutely infected. She is dialysis dependent with ESRD and is anemic, but baseline lab values are noted. Additionally she is diabetic and in atrial fibrillation - both of which were in a stable state. She had wound care consultation with those recommendations noted in her discharge summary. She was seen by PT/OT services who recommend continued therapy services prior to a return to home. This has been arranged at a SNF for discharge. She states she feels ready to discharge and to continue with therapy. She states she is motivated to rehab to home. On day of discharge there is no acute discomfort or concerns presented. She will need to have a set of labs in the next week and close o/p f/u for her chronic concerns. Status at Discharge Functional status at discharge: wheelchair bound Overall status at discharge: patient is not back to baseline Time Spent with Patient Time attestation: Total time spent providing and/or coordinating discharge services: Time spent: Greater than 30 minutes Exam Narrative: GENERAL APPEARANCE: Appears to be in no acute distress. HEAD: normocephalic atraumatic ENT: Hearing grossly intact, no nasal discharge NECK: Neck supple, trachea midline. CARDIAC: Normal S1/S2. Rhythm is regular. No murmurs, rubs, or gallops. No cyanosis or pallor. Extremities are warm and well perfused. LUNGS: Clear to auscultation without rales, rhonchi, wheezing or diminished breath sounds. Respirations even and unlabored. ABDOMEN: BS positive x 4 quadrants. Obese. Soft, nondistended, nontender. No guarding or rebound. MSK: Left BKA. NEURO: Follows commands. No focal deficits. PSYCH: Stable, no paranoia or delusional thinking. DS: Data Data Completed and Pending Labs on day of discharge: Labs from last 24 hours 03/19/22 03/19/22 03/19/22 13:35 08:38 05:55 WBC RBC Hgb Hct MCV MCH MCHC RDW Plt Count MPV Sodium 132 L Potassium 4.3 Chloride 95 L Carbon Dioxide 29 Anion Gap 8 BUN 36 H D Creatinine 7.50 H Estim Creat Clear Calc 8 Estimated GFR 5 L Glucose 160 H POC Capillary Glucose 164 H 136 H Calcium 8.2 L Total Bilirubin 0.5 AST 14 ALT 12 Alkaline Phosphatase 97 Total Protein 8.0 Albumin 3.5 03/19/22 03/18/22 03/18/22 05:55 21:05 16:52 WBC 8.0 RBC 2.44 L Hgb 7.3 L Hct 23.9 L MCV 98.0 MCH 29.9 MCHC 30.5 L RDW 16.3 H Plt Count 227 MPV 9.6 Sodium Potassium Chloride Carbon Dioxide Anion Gap BUN Creatinine Estim Creat Clear Calc Estimated GFR Glucose POC Capillary Glucose 247 H 190 H Calcium Total Bilirubin AST ALT Alkaline Phosphatase Total Protein Albumin Discharge Plan Discharge Attending physician on discharge: Niya Salguero Consulting providers: Nash Mejias ; Gabriela Colvin Discharging Clinician: Desmond Schaeffer Anticipated Discharge Date/Time: 03/19/22 14:09 Patient Disposition: SNF Activity: as tolerated Diet: diabetic Wound Care Instructions: follow printed
[2022-03-19 14:54] LABS: EDCOVIDSCREEN Negative (Negative)
[2022-03-19] MEDS: ONDANSETRON INJ 4 MG/2 ML VIAL IV PUSH (15:08)
[2022-03-19] MEDS: HEPARIN SODIUM LOCK FLUSH 500 UNITS/5 ML SYRINGE IV PUSH (16:45)
== END 2022-03-19 17:06 ==
LOC: ANHED 03-13 02:26 → ANH2MED 03-13 03:09
PROVIDERS: Internal Medicine Critical Care Medicine; Nurse Practitioner Family; Physician Assistant; Admitting Provider Internal Medicine; Emergency Provider Emergency Medicine; PCP Family Medicine; Visit Provider Family Medicine
DX: R53.1 Weakness (principal); T87.89 Other complications of amputation stump; M25.562 Pain in left knee; W19.XXXA Unspecified fall, initial encounter; T23.029A Burn of unspecified degree of unspecified single finger (nail) except thumb, initial encounter; I12.0 Hypertensive chronic kidney disease with stage 5 chronic kidney disease or end stage renal disease; E11.22 Type 2 diabetes mellitus with diabetic chronic kidney disease; E11.319 Type 2 diabetes mellitus with unspecified diabetic retinopathy without macular edema; N18.6 End stage renal disease; Z99.2 Dependence on renal dialysis; Z20.822 Contact with and (suspected) exposure to COVID-19; H40.9 Unspecified glaucoma; Z89.512 Acquired absence of left leg below knee; J98.11 Atelectasis; I44.4 Left anterior fascicular block; D64.9 Anemia, unspecified; L84 Corns and callosities; M19.90 Unspecified osteoarthritis, unspecified site; I48.91 Unspecified atrial fibrillation; I87.009 Postthrombotic syndrome without complications of unspecified extremity; E66.9 Obesity, unspecified; R94.31 Abnormal electrocardiogram [ECG] [EKG]; Z68.37 Body mass index [BMI] 37.0-37.9, adult; Z97.14 Presence of artificial left leg (complete) (partial); Z99.3 Dependence on wheelchair; Z89.412 Acquired absence of left great toe; Z89.411 Acquired absence of right great toe; Z79.01 Long term (current) use of anticoagulants; Z79.4 Long term (current) use of insulin; Z79.891 Long term (current) use of opiate analgesic; Z79.899 Other long term (current) drug therapy
CPT/HCPCS: 36415; 71046; 80048; 80053; 82607; 82728; 82746; 82948; 83036; 83540; 83550; 83735; 84100; 84466; 84484; 85025; 85027; 85610; 85730; 87426; 87636; 93005; 96361; 96374; 96375; 96376; 97110; 97161; 97165; 97530; 97535; 99285; A9270; C9803; G0257; G0378; J1642; J1644; J1815; J2405; J2997; J7030; J7040; Q5105